=== PATIENT | male | born 1980 | race Caucasian/White ===

== ENCOUNTER 2020-04-28 17:43 | Emergency (ER) | payer MEDICAID, SELFPAY ==
[2020-04-28 17:44] VITALS: BP 147/94; PULSE 70; RESP 18; TEMP 36.2; O2SAT 97; BMI 42.4
--- NOTE | 2020-04-28 18:21 | US_ITS ---
STUDY: SCROTUM ULTRASOUND REASON FOR EXAM: Male, 39 years old. Left sided abdominal, groin and testicular pain beginning today. TECHNIQUE: Ultrasound evaluation of the scrotum was performed with color Doppler and static rios-scale imaging. COMPARISON: None. FINDINGS: RIGHT TESTICLE INTRATESTICULAR: There is mildly enlarged of the right testicle. The right testicle measures 5.2 x 2.9 x 2.2 cm. There is a homogenous echotexture. There is normal arterial and normal venous vascularity. There is no demonstrated right testicular mass or cyst. EXTRATESTICULAR: The epididymis is normal in size. The epididymis head measures 1.3 x 1.3 x 1.1 cm. There is normal vascularity of the epididymis. There is a 5 mm epididymal head cyst. There is a moderate size hydrocele. There is no demonstrated varicocele. There is no demonstrated extratesticular mass or cyst. LEFT TESTICLE INTRATESTICULAR: There is a normal size of the left testicle. The left testicle measures 4.4 x 3.2 x 1.9 cm. There is a homogenous echotexture. There is normal arterial and normal venous vascularity. There is no demonstrated left testicular mass or cyst. EXTRATESTICULAR: The epididymis is normal in size. The epididymis head measures 0.9 x 1.1 x 0.8 cm. There is normal vascularity of the epididymis. There is no demonstrated epididymal cystic structure. There is a moderate size hydrocele. There is no demonstrated varicocele. There is no demonstrated extratesticular mass or cyst. US/Testicular with Arterial Flow IMPRESSION: 1. Moderate bilateral hydroceles. 2. Right epididymal head cyst. 3. Mildly enlarged right testicle when compared to the left. It is otherwise unremarkable. Electronically Signed: Chris Michael DO at 19:34 EDT Tel [phone], Service support ,
--- NOTE | 2020-04-28 18:22 | ED.VIS.GEN ---
History of Present Illness Chief Complaint: Abd Pain Narrative: 39-year-old male presenting with abdominal pain. He states it was sharp and came out of nowhere. He describes it as in the left suprapubic area rating upward across his abdomen around his back and then down his leg. He states he did have nausea and vomiting x2. He still nauseous but no longer vomiting. He states he was diaphoretic a couple of times. He has a distant history of kidney stone. He does not have any urinary symptoms. Patient also states that he has not had any constipation or diarrhea. He has been eating and drinking normally. No history of diverticulitis that he can recall. Also complains of left testicular pain. This started with the other symptoms. He states it is not tender to palpation. Past Medical History - Allergies and Home Meds Allergies/Adverse Reactions: Allergies No Known Allergies Allergy (Verified 04/28/20 17:43) Primary Care Physician: Watson Simmons MD [STAFF PHYSICIAN] - [facility] Doctor,Out of [NON-STAFF] - Prior records reviewed: Yes Past Medical History: - - Kidney stones Surgical History: noncontributory Lives: Spouse/ Significant Other Smoking Status: Unknown if ever smoked Alcohol: None Drugs: None Review of Systems General: Reports: Sweats. Denies: Chills, Fever Eyes: Denies: Visual changes - bilaterally, Diplopia ENT: Denies: Rhinorrhea, Sore throat Cardiovascular: Denies: Chest pain, Palpitations Respiratory: Denies: Dyspnea, Cough, Dyspnea on exertion Gastrointestinal: Reports: Abdominal pain, Nausea, Vomiting, -. Denies: Diarrhea, Constipation, Hematochezia Genitourinary: Reports: - - Sensation of left testicular pain. Denies: Dysuria, Hematuria, Frequency Musculoskeletal: Denies: Myalgias, Arthralgias Skin: Denies: Rash, Abscess Physical Exam Vital Signs/Narrative: Vital Signs Temp Pulse Resp BP Pulse Ox 04/28/20 17:44 97.1 F L 70 18 147/94 H 97 General: Well nourished, Well developed, No Acute Distress Head: Normocephalic, Atraumatic Eyes: Perrl, EOMI. Negative for: Scleral icterus ENT: Moist mucous membranes Cardiovascular: Regular rate, Regular rhythm Respiratory: No distress, CTA bilaterally Abdomen: Soft, Nondistended, - - Tenderness to palpation noted in the left lower quadrant and left suprapubic region. : - - Testicles appear symmetric. Neither testicle appears high riding. There are no rashes or lesions. No blue dot sign. Cremasteric reflex intact. Back: Nontender. Negative for: CVA tenderness Extremities: Negative for: Nontender, No edema Skin: Normal color, No rash, Pallor Neurological: Oriented x3 Psychological: Normal affect Diagnostic/Tx/Re-eval - Medical Decision Making Presents with concern for pain to the left testicle as well as left-sided flank pain. On examination he has no CVA tenderness but does have some left lower abdominal pain. On examination he has no abnormal findings of his testicle. Testicular ultrasound shows bilateral hydroceles and a right-sided cyst on the testicle which is not even an area of tenderness. He had no pain on examination of his testicles. I did check a urinalysis which showed hematuria. Therefore I have ordered a CT noncontrast which showed a 2 mm distal ureteral stone which is consistent with the location of his pain. I believe the radiation of pain to the testicle is likely from the kidney stone. Blood work is unremarkable. Urinalysis shows no sign of infection. Patient was given morphine in the ED and felt improved. He will be given follow-up with urology. He was given Percocet, Zofran, Flomax for home. He is given return precautions. Patient is stable for discharge at this time. Impression: 1. 2 mm distal ureteral stone 2. Hematuria 3. Right testicular cyst 4. Bilateral hydroceles of the testicles ED Disposition - Plan for ED Patient: Disposition: Home or Assisted Living Instructions: ED Hydrocele Type Not Specified, ED Renal Stone w Colic Prescriptions: Tamsulosin HCl [Flomax] 0.4 mg PO DAILY #14 cap Prescription Printed Oxycodone HCl/Acetaminophen [Percocet 5/325] 1 tab PO Q6H PRN PRN 3 Days #12 tab PRN Reason: pain Prescription Printed Ondansetron [Zofran Odt] 4 mg PO Q8H PRN PRN #12 tab PRN Reason: Nausea Prescription Printed Referrals: [facility] Doctor,Out of [NON-STAFF] - Watson Simmons MD [STAFF PHYSICIAN] -
[2020-04-28 18:48] LABS: Bacteria 0 SEEN /hpf (None Seen); White Blood Cells 0 SEEN /hpf (0-5)
[2020-04-28 18:51] LABS: Color, Urine Yellow (Yellow); Glucose, Dipstick Normal (Normal); Ketone-Dipstick 5 mg/dl (Negative); Leukocyte Esterase-Dipstick 25 /ul (Negative); Nitrite-Dipstick Negative (Negative); Occult Blood-Urine 250 /ul (Negative); Protein-Dipstick 30 mg/dl (Negative); Urine Bilirubin Dipstick Negative (Negative); Urine Clarity Sl. Cloudy (Clear); Urine Urobilinogen Normal (Normal)
[2020-04-28] MEDS: 0.9% Normal Saline 1,000 ML 1000 ML IV (18:51)
[2020-04-28] MEDS: Ondansetron 4 MG/2 ML Vial IV (18:51)
[2020-04-28 18:52] LABS: Absolute Lymphocyte Count 1.38 X10^3/uL (0.83-4.51); Absolute Neutrophil Count 7.6 X10^3/uL (2.0-7.7); Basophil# 0.05 X10^3/uL; Basophil% 0.5 % (0-1); Eosinophil# 0.06 X10^3/uL; Eosinophils% 0.6 % (0-5); Hematocrit 44.4 % (40-54); Hemoglobin 15.2 g/dL (13.0-16.5); Lymphocyte # 1.38 X10^3/ul (4.0); Lymphocyte % 14.4 % (19-41); Mean Corp Hgb Conc 34.2 g/dL (32-36); Mean Corpuscular Hgb 31.2 pg (27.0-32.0); Mean Corpuscular Volume 91.2 fL (80-94); Mean Platelet Vol. 11.2 fl (6.2-12.0); Monocyte% 5.2 % (0-10); NRBC Flagged by Analyzer 0 % (0-5); Neutrophil # 7.55 X10^3/uL (2.7-7.7); Neutrophil % 78.9 % (47-70); Platelet Count 219 K/mm3 (150-450); RBC Distribution Width CV 13.1 % (11.6-14.6); RBC Distribution Width SD 43.7 fl (35.1-43.9); Red Blood Count 4.87 M/mm3 (4.6-6.2); White Blood Count 9.6 K/mm3 (4.4-11.0)
[2020-04-28 19:00] LABS: Mucous, Urine 2+ /hpf (<or=2+); Red Blood Cells-Urine 10-25 SEEN /hpf (0-5); Squamous Epithelial Cells - UA 0-5 SEEN /hpf (0-5)
--- NOTE | 2020-04-28 19:03 | CT_ITS ---
STUDY: CT ABDOMEN AND PELVIS WITHOUT CONTRAST REASON FOR EXAM: Male, 39 years old. Left-sided abdominal pain. Groin pain. RADIATION DOSAGE (If Supplied By Facility): CTDIvol = ( 15.32 ) mGy, DLP = ( 1420.57 ) mGycm TECHNIQUE: Transaxial images were obtained from the dome of the diaphragm to the symphysis pubis without oral contrast, and without intravenous contrast. Sagittal and coronal images were reconstructed. Individualized dose optimization techniques were used for this CT. COMPARISON: None. FINDINGS: The visualized lung bases are unremarkable. The visualized portions of the heart are within normal limits. Diffuse fatty infiltration of an enlarged liver. There is focal fatty sparing in the gallbladder fossa about the portal hilum. There is no focal mass. Normal gallbladder and extrahepatic biliary system. Splenomegaly without mass. Normal pancreas. Normal bilateral adrenal glands. The right kidney is of normal size and cortical thickness. There is a 2 mm nonobstructing calculus lower pole calyx. There is no mass or hydronephrosis. Normal right ureter. Normal left kidney. There is mild hydronephrosis and ureterectasis to the pelvis where there is a 2 mm calculus seen within the distal ureter (image 151, series 2. Normal visualized stomach. Normal small intestine. Normal colon. The appendix is visualized and appears normal. Normal abdominal aorta. Normal inferior vena cava. Normal retroperitoneum. Normal urinary bladder. Normal prostate. There is no pelvic lymphadenopathy or mass. No free air or free fluid is seen within the peritoneal cavity. Small umbilical hernia of omental fat. The abdominal wall is otherwise unremarkable. There are small bilateral hydroceles without other evidence of scrotal penile abnormality. Normal osseous structures. CT/Abdomen/Pelvis without Cont IMPRESSION: 1. 2 mm calculus in the distal left ureter with mild obstructive uropathy. 2. Nonobstructing right renal calculus. 3. Hepatosplenomegaly with diffuse fatty infiltration of the liver. 4. No other evidence of abdominal or pelvic abnormality. Electronically Signed: Chris Michael DO at 19:55 EDT Tel [phone], Service support ,
[2020-04-28 19:06] LABS: ALB/GLOB Ratio 1.5 RATIO (0.9-2.4); AST(SGOT) 37 U/L (15-37); Alanine Aminotransfer ALT/SGPT 94 U/L (16-61); Albumin, Serum 4.4 g/dL (3.2-5.0); Alkaline Phosphatase 69 U/L (45-117); Anion Gap 6 (5-15); BUN 12 mg/dL (7-18); BUN/Creat Ratio 11.8 RATIO (10-20); Chloride 108 mmol/L (98-107); Creatinine, Serum 1.02 mg/dL (0.70-1.30); EST Glomerular Filtration Rate 86 mL/min (>60); Est Glom Filt Rate - Afr Amer 104 mL/min (>60); Estimated Creatinine Clearance 103.56 ml/min; Glucose 124 mg/dL (74-106); Lipase 157 U/L (73-393); Potassium 3.7 mmol/L (3.5-5.1); Protein, Total 7.4 g/dL (6.4-8.2); Sodium Level 140 mmol/L (136-145)
[2020-04-28 21:29] VITALS: BP 132/89; PULSE 71; RESP 16
== END 2020-04-28 21:30 | disposition home or self-care (01) ==
PROVIDERS: Emergency Provider Student in an Organized Health Care Education/Training Program
DX: N20.1 Calculus of ureter (principal); R31.9 Hematuria, unspecified; N44.2 Benign cyst of testis; N43.3 Hydrocele, unspecified; Z87.442 Personal history of urinary calculi
CPT/HCPCS: 74176; 76870; 80053; 81001; 83690; 85025; 93976; 96361; 96374; 96375; 99282; J7030; A4216; J2405

== ENCOUNTER 2021-06-23 10:19 | Inpatient (IN) | payer MEDICAID, SELFPAY ==
[2021-06-23] VITALS (11 sets, daily range): BP systolic 119–134; BP diastolic 70–83; PULSE 85–121; RESP 16–27; TEMP 36.1–38.7; O2SAT 85–96; BMI 44.0; BMI 43.4
--- NOTE | 2021-06-23 10:54 | ED.VIS.DYS ---
HPI History of Present Illness Chief Complaint: Shortness of Breath Informant: patient Onset/Context/Timing Onset: Days Context: gradual Timing: Continuous Current Severity: Mild Maximum Severity: Mild Associated Symptoms cough Chest Pain: Positive for None Narrative Narrative: 40-year-old male unvaccinated for Covid. States has had Covid symptoms since Sunday so is now 6 days in. She has had flulike symptoms. He states he had nausea, vomiting and diarrhea. He has had fevers. He has had a dry nonproductive cough. Also states his 2-1/2-year-old daughters ill at home but she is doing quite well. He has no other past medical history. Says he feels dehydrated. PE Risk Factors: Negative for Cancer, OCP + Smoking + > 35, Prior DVT or PE, Recent immobilization, Recent surgery and Recent travel Prior similar symptoms: No Recent Illness/Hospitalization: No PFSH PFSH Medical History no medical history no medical history Home Medications dexamethasone [Decadron] 6 mg PO DAILY 7 Days #7 tab 06/23/21 [Rx Last Taken Unknown] ondansetron 4 mg PO Q8H PRN 4 Days tab 06/23/21 [Rx Last Taken Unknown] Allergy/AdvReac Type Severity Reaction Status Date / Time No Known Allergies Allergy Verified 04/28/20 17:43 Surgical History no surgical history Social History Smoking Status: Never smoker ROS ROS ED ROS Narrative Fever, cough, shortness of breath, nausea, vomiting and diarrhea. Review of Systems ROS Unobtainable: Denies due to encephalopathy Constitutional Constitutional ED: Reports fever(s) Eyes Eyes: Denies change in vision ENT ENT ED: Denies ear pain or sore throat Cardiovascular Cardiovascular: Denies chest pain Respiratory/Chest Respiratory/Chest: Reports cough and dyspnea Gastrointestinal Gastrointestinal: Reports diarrhea, nausea and vomiting; Denies abdominal pain Genitourinary Genitourinary ED: Denies dysuria Musculoskeletal Musculoskeletal: Reports myalgias Integumentary Denies rash Neurologic Neurologic: Denies headache(s) Psychiatric Psychiatric: Denies depression Endocrine Endocrinology: Denies polyuria Hematologic/Lymphatic Hematologic/Lymphatic: Denies easy bruising Allergic/Immunologic Allergic/Immunologic ED: Denies urticaria EXAM Physical Exam Narrative Exam Narrative: 40-year-old male no acute distress is febrile one 1.6. He does not look septic. He looks mildly dehydrated. HEENT exam mucous membranes. Otherwise unremarkable. Neck nontender no meningismus. No lymphadenopathy. Lungs clear to auscultation bilaterally. Heart tachycardic rate about 110 no murmur. Abdomen soft nontender normal bowel sounds no peritoneal signs. Moving all 4 extremities. No edema. Calves nontender. Back nontender. Skin unremarkable no rashes. No petechiae purpura. Neurologically is awake and alert. Const Vital Signs: 06/23/21 10:20 06/23/21 10:32 06/23/21 10:36 Temperature 101.6 F H 101.6 F H Temperature Source Oral Temporal Pulse Rate 121 H 105 H 102 H Respiratory Rate 24 H 22 H 24 H Respiratory Effort Non-Labored Respiratory Depth Normal Respiratory Pattern Tachypnea Blood Pressure 122/83 H 134/70 H 134/70 H Blood Pressure Mean 96 91 91 Pulse Ox 85 91 92 Oxygen Delivery Method Room Air Nasal Cannula Room Air Oxygen Flow Rate (L/min) 3 4 06/23/21 11:07 06/23/21 11:24 06/23/21 12:08 Temperature 97.0 F L Temperature Source Temporal Pulse Rate 100 Respiratory Rate 27 H Respiratory Effort Respiratory Depth Respiratory Pattern Blood Pressure 123/81 H Blood Pressure Mean 95 Pulse Ox 96 95 86 Oxygen Delivery Method Nasal Cannula Room Air Oxygen Flow Rate (L/min) 4 4 Positive well nourished, well developed and obese; Negative for cachectic, contractures or unkempt General Appearance ED: well developed and NAD; Negative for unkempt, cachectic, contractures or pallor Nutritional Appearance: obese; Negative for cachectic HEENT Reports dry mucous membranes atraumatic; Negative for trauma or tenderness Mouth ED: Yes dry mucous membranes Mouth: dry mucous membranes Eyes PERRL and EOMs intact bilaterally Neck no lymphadenopathy, supple, no meningeal signs and no JVD General: Negative for tenderness Resp normal respiratory effort and clear to auscultation bilaterally Auscultation: Negative for rales, rhonchi or wheezes Cardio regular rhythm, S1 normal heart sound, S2 normal heart sound and no murmurs Rate: tachycardic GI non-tender, non-distended and no masses Auscultation: normoactive bowel sounds Palpation: soft; Negative for tender, guarding or rebound tenderness present Back/Spine normal to inspection Extremity normal to inspection General Extremety ED: Negative for edema or tenderness General Extremity: Negative for edema Neuro oriented x3 Sensorium / Orientation: alert, oriented to person, oriented to place and oriented to time; Negative for confused, lethargic or stuporous Motor Exam: strength 5/5 throughout Psych mental status grossly normal Appearance: Negative for unkempt Skin no wounds General Skin Exam: Negative for jaundice or pallor Lesions: no lesions Rashes: no rashes MDM MDM MDM Narrative Medical decision making narrative: 40-year-old male Covid positive test on Sunday. Complaint nausea, vomiting diarrhea. Feels dehydrated. Will be given IV fluids. Chest x-ray and labs are being obtained. To be treated with IV Decadron. IV Zofran. Initially was considering discharging the patient home but he is significantly hypoxic with his pulse ox in the mid 80s. That would take him out from being a candidate for the monoclonal antibody therapy. I have spoken to the hospitalist and they will admit him. Lab Data Attestation: I reviewed the patient's lab results. Lab results narrative: CBC normal white count of 7. Hemoglobin 15. Electrolytes show sodium 135. Potassium 3.3. Gap of 6. Normal BUN and creatinine. Glucose 158. Labs: Laboratory Results - last 24 hr 06/23/21 06/23/21 11:10 11:10 WBC 7.8 RBC 4.99 Hgb 15.1 Hct 44.0 MCV 88.2 MCH 30.3 MCHC 34.3 RDW Std Deviation 43.2 RDW Coeff of [place] 13.2 Plt Count 216 MPV 9.7 Immature Gran % (Auto) 0.600 Neut % (Auto) 84.3 H Lymph % (Auto) 10.9 L [place] % (Auto) 4.1 Eos % (Auto) 0.0 Baso % (Auto) 0.1 Absolute Neuts (auto) 6.6 Absolute Lymphs (auto) 0.85 Nucleated RBC % 0 Sodium 135 L Potassium 3.3 L Chloride 102 Carbon Dioxide 27.0 Anion Gap 6 BUN 8 Creatinine 0.95 Estim Creat Clear Calc 106.73 Est GFR (MDRD) Af Amer 112 Est GFR (MDRD) Non-Af 93 BUN/Creatinine Ratio 8.4 L Glucose 158 H Calcium 8.3 L Radiography Chest X-Ray - ED: 1 View, Read by ED Physician, Heart, Mediastinum, Bony Structures, No Acute Disease, Right Infiltrate and Left Infiltrate Diagnostic Testing: Clinical Impression(s) from Imaging Studies Chest X-Ray 06/23/21 11:20 IMPRESSION: Patchy bilateral pulmonary infiltrates. Electronically Signed: Zachary Davison MD at 11:47 EDT , Service support , Single view portable chest x-ray interpreted by myself shows bilateral infiltrates consistent with Covid pneumonitis. Normal cardiac silhouette. Discharge Plan Triage Chief Complaint: Shortness of Breath ED Provider: Silverio Chery Dx/Rx/DC Orders Clinical Impression: COVID-19, Vomiting Instructions: ED Vomiting (Adult), Human Coronaviruses Prescriptions: New dexamethasone [Decadron] 6 mg tablet 6 mg PO DAILY 7 Days Qty: 7 RF: 0 ondansetron 4 mg tablet,disintegrating 4 mg PO Q8H PRN (Reason: nausea and vomiting) 4 Days RF: 0 Other Ambulatory Orders: COVID Outpatient Monoclonal Antibody Referral (Routine) Timeframe: 1 Day Facility: [facility] - Location: [facility] Ordered By: Dr. Silverio Chery Primary Care Provider: Reinier Mclean Referrals: Reinier Mclean MD [Primary Care Provider] - 1 Week if not improving Activity Restrictions/Additional Instructions: Plenty of fluids and rest. Zofran as needed for nausea. Decadron daily. Tylenol and Motrin as needed for fever. You need to quarantine for 10 days from the onset of your symptoms. If worse assuming that was Sunday your quarantine would be over next Sunday. Hospital will call you tomorrow to discuss monoclonal antibody therapy. You may want to strongly consider that. Basically you would come into the hospital you would be here 1 to 3 hours they would give you an IV infusion of the antibiotics to help you fight off the Covid. Disposition Disposition: Acute Care Hospital [facility]
[2021-06-23] MEDS: 0.9% Normal Saline 1,000 ML 1000 ML IV (11:14)
[2021-06-23 11:15] LABS: Absolute Lymphocyte Count 0.85 X10^3/uL (0.83-4.51); Absolute Neutrophil Count 6.6 X10^3/uL (2.0-7.7); Basophil# 0.01 X10^3/uL; Basophil% 0.1 % (0-1); Hemoglobin 15.1 g/dL (13.0-16.5); Lymphocyte # 0.85 X10^3/ul (0.83-4.51); Lymphocyte % 10.9 % (19-41); Mean Corp Hgb Conc 34.3 g/dL (32-36); Mean Corpuscular Hgb 30.3 pg (27.0-32.0); Mean Corpuscular Volume 88.2 fL (80-94); Mean Platelet Vol. 9.7 fl (6.2-12.0); Monocyte# 0.32 X10^3/uL; Monocyte% 4.1 % (0-10); NRBC Flagged by Analyzer 0 % (0-5); Neutrophil % 84.3 % (47-70); Platelet Count 216 K/mm3 (150-450); RBC Distribution Width CV 13.2 % (11.6-14.6); RBC Distribution Width SD 43.2 fl (35.1-43.9); Red Blood Count 4.99 M/mm3 (4.6-6.2); White Blood Count 7.8 K/mm3 (4.4-11.0)
[2021-06-23] MEDS: Ondansetron 4 MG/2 ML Vial IV (11:15)
[2021-06-23] MEDS: dexAMETHasone 10 MG/ML Vial IV (11:15)
--- NOTE | 2021-06-23 11:20 | RAD_ITS ---
STUDY: X-RAY CHEST REASON FOR EXAM: Male, 40 years old. Dyspnea TECHNIQUE: Single AP portable view of the chest. COMPARISON: None. FINDINGS: EKG electrodes are seen. There is elevation of the right hemidiaphragm. Patchy bilateral pulmonary infiltrates. There is no demonstrated pleural abnormality. Normal size heart. Normal mediastinum and jose manuel. Normal visualized pulmonary arteries. Normal visualized aortic arch and descending thoracic aorta. Normal visualized thoracic spine. Normal visualized ribs, clavicles, and shoulders. There is no demonstrated abnormality of the visualized soft tissue structures of the upper abdomen. RAD/Chest 1 View (Portable) IMPRESSION: Patchy bilateral pulmonary infiltrates. Electronically Signed: Zachary Davison MD at 11:47 EDT , Service support ,
[2021-06-23 11:27] LABS: Anion Gap 6 (5-15); BUN 8 mg/dL (7-18); BUN/Creat Ratio 8.4 RATIO (10-20); Calcium,Total 8.3 mg/dL (8.5-10.1); Chloride 102 mmol/L (98-107); Creatinine, Serum 0.95 mg/dL (0.70-1.30); EST Glomerular Filtration Rate 93 mL/min (>60); Est Glom Filt Rate - Afr Amer 112 mL/min (>60); Estimated Creatinine Clearance 106.73 ml/min; Glucose 158 mg/dL (74-106); Potassium 3.3 mmol/L (3.5-5.1); Sodium Level 135 mmol/L (136-145)
--- NOTE | 2021-06-23 12:56 | NURSING ---
322 TERELETSKY COVID, HYPOXIA, VOMITING
[2021-06-23 13:11] LABS: AST(SGOT) 89 U/L (15-37); Alanine Aminotransfer ALT/SGPT 91 U/L (16-61); Albumin, Serum 3.2 g/dL (3.2-5.0); Alkaline Phosphatase 61 U/L (45-117); Bilirubin, Direct 0.23 mg/dL (0.00-0.30); Globulin 4.4 g/dL (2.2-4.2); Protein, Total 7.6 g/dL (6.4-8.2)
--- NOTE | 2021-06-23 13:38 | PCM.HP.STD ---
Documented by User: MARCIANO Duncan 06/23/21 13:54 HPI - General General Date of Admission: 06/23/21 Date of Service: 06/23/21 Chief Complaint: Decreased pulse ox HPI Narrative MAHESH SMITH, is a 40 M who presents with reports of decreased pulse ox at home. Patient was diagnosed on Sunday as having COVID-19 however patient states that his symptoms started on Sunday which puts him 1 day 6 of symptoms. Patient reports nausea, vomiting, diarrhea along with fevers. Patient received IV Decadron and IV Zofran along with IV fluids in the ER. Upon presentation to ER patient was noted to have pulse ox in the mid 80s and is requiring 4 L nasal cannula oxygen. [facility] Medical History no medical history no medical history Home Medications dexamethasone [Decadron] 6 mg PO DAILY 7 Days #7 tab 06/23/21 [Rx Last Taken Unknown] ondansetron 4 mg PO Q8H PRN 4 Days tab 06/23/21 [Rx Last Taken Unknown] Allergy/AdvReac Type Severity Reaction Status Date / Time No Known Allergies Allergy Verified 04/28/20 17:43 Family History (Updated 06/23/21 @ 13:41 by MARCIANO Duncan) Father Myocardial infarction Surgical History History of tonsillectomy Surgical History no surgical history Social History (Updated 06/23/21 @ 13:41 by SAMEERA DuncanC) Smoking Status: Never smoker alcohol intake: never substance use type: does not use ROS Constitutional Constitutional: Reports fever(s) and malaise; Denies anorexia or chills Cardiovascular Cardiovascular: Denies chest pain, edema or palpitations Respiratory/Chest Respiratory/Chest: Reports cough and shortness of breath with exertion Gastrointestinal Gastrointestinal: Reports diarrhea, nausea and vomiting; Denies abdominal pain or constipation Genitourinary Genitourinary: Denies dysuria Musculoskeletal Musculoskeletal: Denies back pain, extremity pain, joint pain or joint stiffness Integumentary Integumentary: Denies dry skin, lesions or rash Neurologic Neurologic: Denies abnormal gait, abnormal speech, confusion, dizziness or focal weakness Psychiatric Psychiatric: Denies anxiety or depression Endocrine Endocrinology: Denies change in body appearance Hematologic/Lymphatic Hematologic/Lymphatic: Denies anemia, easy bleeding or easy bruising Vital Signs Vital Signs Vital Signs: 06/23/21 10:20 06/23/21 10:32 06/23/21 10:36 Temperature 101.6 F H 101.6 F H Temperature Source Oral Temporal Pulse Rate 121 H 105 H 102 H Respiratory Rate 24 H 22 H 24 H Respiratory Effort Non-Labored Respiratory Depth Normal Respiratory Pattern Tachypnea Blood Pressure 122/83 H 134/70 H 134/70 H Blood Pressure Mean 96 91 91 Pulse Ox 85 91 92 Oxygen Delivery Method Room Air Nasal Cannula Room Air Oxygen Flow Rate (L/min) 3 4 06/23/21 11:07 06/23/21 11:24 06/23/21 12:08 Temperature 97.0 F L Temperature Source Temporal Pulse Rate 100 Respiratory Rate 27 H Respiratory Effort Respiratory Depth Respiratory Pattern Blood Pressure 123/81 H Blood Pressure Mean 95 Pulse Ox 96 95 86 Oxygen Delivery Method Nasal Cannula Room Air Oxygen Flow Rate (L/min) 4 4 06/23/21 12:23 Temperature 97.3 F L Temperature Source Temporal Pulse Rate 98 Respiratory Rate 23 H Respiratory Effort Respiratory Depth Respiratory Pattern Blood Pressure 134/78 H Blood Pressure Mean 96 Pulse Ox 93 Oxygen Delivery Method Nasal Cannula Oxygen Flow Rate (L/min) 4 Weight Weight: 307 lb Body Mass Index (BMI) 44.0 Physical Exam Const alert, oriented x3 and no apparent distress General Appearance: cooperative HEENT normocephalic and head/scalp atraumatic Eyes conjunctivae normal and no scleral icterus Neck supple General: trachea midline Resp normal respiratory effort, normal air movement and clear to auscultation bilaterally Effort and Inspection: tachypneic Cardio regular rate, regular rhythm, S1 normal heart sound, S2 normal heart sound and peripheral pulses 2+ throughout GI normal to inspection, nondistended, normoactive bowel sounds, soft to palpation and non-tender Extremity normal capillary refill and no clubbing, cyanosis or edema General Extremity: no tenderness to palpation of joints or extremities Skin General Skin Exam: no breakdown and turgor normal Lesions: no lesions Rashes: no rashes Neuro no focal motor deficits and no sensory deficits noted Speech: speech normal Motor Exam: Negative for general weakness Psych thought process normal, cooperative and affect normal Appearance: appropriate Results Lab / Micro Data Result Diagrams: 06/23/21 11:10 06/23/21 11:10 Labs: Laboratory Results - last 24 hr 06/23/21 11:10: WBC 7.8, RBC 4.99, Hgb 15.1, Hct 44.0, MCV 88.2, MCH 30.3, MCHC 34.3, RDW Std Deviation 43.2, RDW Coeff of [place] 13.2, Plt Count 216, MPV 9.7, Immature Gran % (Auto) 0.600, Neut % (Auto) 84.3 H, Lymph % (Auto) 10.9 L, [place] % (Auto) 4.1, Eos % (Auto) 0.0, Baso % (Auto) 0.1, Absolute Neuts (auto) 6.6, Absolute Lymphs (auto) 0.85, Nucleated RBC % 0 06/23/21 11:10: Sodium 135 L, Potassium 3.3 L, Chloride 102, Carbon Dioxide 27.0, Anion Gap 6, BUN 8, Creatinine 0.95, Estim Creat Clear Calc 106.73, Est GFR (MDRD) Af Amer 112, Est GFR (MDRD) Non-Af 93, BUN/Creatinine Ratio 8.4 L, Glucose 158 H, Calcium 8.3 L 06/23/21 11:10: Total Bilirubin 0.50, Direct Bilirubin 0.23, AST 89 H, ALT 91 H, Alkaline Phosphatase 61, Total Protein 7.6, Albumin 3.2, Globulin 4.4 H Radiology Impression Chest X-Ray 06/23/21 11:20 IMPRESSION: Patchy bilateral pulmonary infiltrates. Electronically Signed: Zachary Davison MD at 11:47 EDT , Service support , Assessment & Plan Assessment/Plan (1) COVID-19: PLAN: 1. COVID-19 -Admit to MedSurg -Oxygen per protocol, currently on 4 L nasal cannula oxygen -Patient will be initiated on IV Decadron and remdesivir -Covid precautions -CBC and CMP daily -Vital signs per protocol -Regular diet -As needed IV Zofran ordered 2. Hypokalemia -Likely secondary to vomiting and diarrhea -Potassium chloride 40 mEq x 1 ordered p.o. -Daily CMP DVT prophylaxis-subcu Lovenox This patient was seen by Cathy Nair NP-C under the supervision of Dr. Vallejo. Documented by User: Dr. Ancelmo Vallejo, 06/23/21 18:52 HPI - General General Date of Admission: 06/23/21 PFSH Medical History no medical history Home Medications dexamethasone [Decadron] 6 mg PO DAILY 7 Days #7 tab 06/23/21 [Rx Last Taken Unknown] ondansetron 4 mg PO Q8H PRN 4 Days tab 06/23/21 [Rx Last Taken Unknown] Allergy/AdvReac Type Severity Reaction Status Date / Time No Known Allergies Allergy Verified 04/28/20 17:43 Family History (Updated 06/23/21 @ 13:41 by MARCIANO Duncan) Father Myocardial infarction Surgical History History of tonsillectomy Surgical History no surgical history Social History (Updated 06/23/21 @ 13:41 by Cathy Nair NP-C) Smoking Status: Never smoker alcohol intake: never substance use type: does not use Results Lab / Micro Data Result Diagrams: 06/23/21 11:10 06/23/21 11:10 Charges/Coding Addendum Addendum: Patient was seen and examined independently of Cathy Bautista today, he came to the emergency room today complaining of worsening shortness of breath, patient has been feeling ill since last Sunday (6 days) and he states he tested positive for COVID-19 this past Sunday. Evaluation in the ER noted that the patient required 4 L of oxygen to maintain his pulse ox. On examination he appeared his stated age, patient was morbidly obese. Vital signs as documented. Skin warm and dry and without overt rashes. Neck without JVD, neck was supple, trachea midline, thyroid was normal. Lungs clear bilaterally, normal air movement was noted. Heart exam notable for regular rhythm, normal sounds and absence of murmurs, rubs or gallops. Abdomen unremarkable and without evidence of organomegaly, masses, or abdominal aortic enlargement. Bowel sounds are present, abdomen is not distended. Extremities nonedematous, no cyanosis was noted, no clubbing was noted. Neuro: Cranial nerves II through XII are grossly intact, no focal motor deficits were noted, sensation to light touch and pinprick intact, motor exam 5/5 throughout. Psych: Patient is alert and oriented x3, he does not appear anxious or depressed, he does not appear agitated. Patient will be admitted to [facility], he will receive IV remdesivir and IV dexamethasone. I have reviewed Aric Bautista's history and physical including her medical assessment and plan of care and endorse it. Visit Charges Inpatient E&M: 03063 Init Hosp L3
--- NOTE | 2021-06-23 13:42 | PCS.PANDOC ---
PANDEMIC DOCUMENTATION INITIATED: Date: 04/25/2021 Time: 190
[2021-06-23] MEDS: Potassium Chloride Oral Tablet 20 MEQ 40 MEQ PO (15:16)
[2021-06-23] MEDS: 0.9% Saline Lock 10 ML Syringe IV (15:17)
[2021-06-23] MEDS: Enoxaparin 40 MG/0.4 ML Syringe SC (21:38)
[2021-06-23] MEDS: Acetaminophen 325 MG Tablet 650 MG PO (21:38)
[2021-06-24] VITALS (9 sets, daily range): BP systolic 102–135; BP diastolic 67–75; PULSE 75–86; RESP 16–20; TEMP 36.9–37.2; O2SAT 88–98
[2021-06-24 07:13] LABS: Hematocrit 45.2 % (40-54); Hemoglobin 15.3 g/dL (13.0-16.5); Mean Corp Hgb Conc 33.8 g/dL (32-36); Mean Corpuscular Hgb 30.8 pg (27.0-32.0); Mean Corpuscular Volume 91.1 fL (80-94); Mean Platelet Vol. 10.3 fl (6.2-12.0); Platelet Count 278 K/mm3 (150-450); RBC Distribution Width CV 13.4 % (11.6-14.6); Red Blood Count 4.96 M/mm3 (4.6-6.2); White Blood Count 8.9 K/mm3 (4.4-11.0)
[2021-06-24 07:43] LABS: ALB/GLOB Ratio 0.7 RATIO (0.9-2.4); AST(SGOT) 67 U/L (15-37); Alanine Aminotransfer ALT/SGPT 84 U/L (16-61); Alkaline Phosphatase 58 U/L (45-117); Anion Gap 7 (5-15); BUN 10 mg/dL (7-18); BUN/Creat Ratio 12.6 RATIO (10-20); Calcium,Total 8.5 mg/dL (8.5-10.1); Chloride 107 mmol/L (98-107); Creatinine, Serum 0.79 mg/dL (0.70-1.30); EST Glomerular Filtration Rate 115 mL/min (>60); Est Glom Filt Rate - Afr Amer 139 mL/min (>60); Estimated Creatinine Clearance 128.34 ml/min; Globulin 4.4 g/dL (2.2-4.2); Glucose 138 mg/dL (74-106); Protein, Total 7.4 g/dL (6.4-8.2); Sodium Level 141 mmol/L (136-145)
[2021-06-24] MEDS: 0.9% Saline Lock 10 ML Syringe IV (09:53)
[2021-06-24] MEDS: Enoxaparin 40 MG/0.4 ML Syringe SC ×2 (09:54→22:33)
[2021-06-24] MEDS: dexAMETHasone 4 MG/ML Vial 6 MG IV (09:55)
--- NOTE | 2021-06-24 12:36 | PN.HOSP_ITS ---
Documented by User: Cathy Nair NP-C 06/24/21 12:43 Subjective Subjective Patient seen and examined. Patient states that he is not feeling too bad, does report shortness of breath. Patient currently on 6 L nasal cannula oxygen up from 4 L yesterday, pulse ox stable when stationary however when patient is ambulatory pulse ox rapidly decreases into the low 80s. Patient denies needs at this time Objective Data Objective Data Vital Signs: Vital Signs Temp Pulse Resp BP Pulse Ox 98.4 F 82 16 135/75 H 92 06/24/21 11:49 06/24/21 11:49 06/24/21 11:49 06/24/21 11:49 06/24/21 11:49 Oxygen Flow Rate (L/min) 9 Oxygen Delivery Method Nasal Cannula Weight: 302 lb 15.983 oz Body Mass Index (BMI) 43.4 Intake & Output: Intake and Output for Last 24 Hours 06/22/21 06/23/21 06/24/21 23:59 23:59 23:59 Intake Total 1562.00 / 1562.00 250 / 250 Balance 1562.00 / 1562.00 250 / 250 Medical Nutrition Assessment Dietitian: Malnutrition Criteria Met Start: 06/23/21 15:02 Freq: Status: Active Protocol: Document 06/23/21 15:02 (Rec: 06/23/21 15:02 [id number]) Nutrition Malnutrition Evidence of Malnutrition Exists Yes Malnutrition (severe): Acute Illness/Injury Evidenced By Suboptimal Energy Intake ( Severe),Weight Loss (Severe) Clinical Problem Acute Disease or Injury Related Malnutrition Etiology severe, acute malnutrition r/t inadequate energy intake d/t COVID-19 Signs/Symptoms as evidenced by unintentional wt loss of 17#/5.3% x 6 days, estimated PO intake meeting < 50% of estimated nutritional needs >5 days Status Active Problem Recommendation Dietitian Recommendations/Changes continue regular diet; will add [place] Instant Breakfast w/ breakfast for additional calories/protein if consumed. Lab / Micro Data Result Diagrams: 06/24/21 06:45 06/24/21 06:45 Labs: Laboratory Results - last 24 hr 06/23/21 11:10: Total Bilirubin 0.50, Direct Bilirubin 0.23, AST 89 H, ALT 91 H, Alkaline Phosphatase 61, Total Protein 7.6, Albumin 3.2, Globulin 4.4 H 06/24/21 06:45: WBC 8.9, RBC 4.96, Hgb 15.3, Hct 45.2, MCV 91.1, MCH 30.8, MCHC 33.8, RDW Std Deviation 45.0 H, RDW Coeff of [place] 13.4, Plt Count 278, MPV 10.3 06/24/21 06:45: Sodium 141, Potassium 4.0, Chloride 107, Carbon Dioxide 27.0, Anion Gap 7, BUN 10, Creatinine 0.79, Estim Creat Clear Calc 128.34, Est GFR (MDRD) Af Amer 139, Est GFR (MDRD) Non-Af 115, BUN/Creatinine Ratio 12.6, Glucose 138 H, Calcium 8.5, Total Bilirubin 0.40, AST 67 H, ALT 84 H, Alkaline Phosphatase 58, Total Protein 7.4, Albumin 3.0 L, Globulin 4.4 H, Albumin/Globulin Ratio 0.7 L Physical Exam Const alert, oriented x3 and no apparent distress General Appearance: cooperative HEENT normocephalic and head/scalp atraumatic Eyes conjunctivae normal and no scleral icterus Neck supple General: trachea midline Resp normal respiratory effort, normal air movement and clear to auscultation bilater ally Effort and Inspection: tachypneic Cardio regular rate, regular rhythm, S1 normal heart sound, S2 normal heart sound and peripheral pulses 2+ throughout GI normal to inspection, nondistended, normoactive bowel sounds, soft to palpation and non-tender Extremity normal capillary refill and no clubbing, cyanosis or edema General Extremity: no tenderness to palpation of joints or extremities Skin General Skin Exam: no breakdown and turgor normal Lesions: no lesions Rashes: no rashes Neuro no focal motor deficits and no sensory deficits noted Speech: speech normal Motor Exam: Negative for general weakness Psych thought process normal, cooperative and affect normal Appearance: appropriate Assessment & Plan Assessment/Plan (1) COVID-19: PLAN: 1. COVID-19 -Admit to MedSurg -Oxygen per protocol, currently on 6 L nasal cannula oxygen -Continue IV Decadron and remdesivir -Covid precautions -CBC and CMP daily -Vital signs per protocol -Regular diet -As needed IV Zofran ordered -Encouraged patient to prone as much as possible as well as use incentive spirometry. -Nursing reports patient is very compliant with all recommendations to promote healing. 2. Hypokalemia -Resolved, potassium 4.0 today 3. Morbid obesity, BMI 40.0-44.9 -Encourage lifestyle modifications -Patient reports a unexpected 17 pound weight loss due to decreased intake from Covid DVT prophylaxis-subcu Lovenox This patient was seen by MARCIANO Duncan under the supervision of Dr. Vallejo. Documented by User: Dr. Ancelmo Vallejo DO 06/24/21 19:28 Objective Data Lab / Micro Data Result Diagrams: 06/24/21 06:45 06/24/21 06:45 Charges/Coding Addendum Addendum: Patient was seen and examined independently of Cathy Bautista today, patient is currently on 9 L of oxygen via nasal cannula, he does not complain of any shortness of breath or chest discomfort. He does not complain of any fevers or chills. On examination he appeared in good health and spirits. Vital signs as documented. Skin warm and dry and without overt rashes. Neck without JVD, neck was supple, trachea midline, thyroid was normal. Lungs clear bilaterally, normal air movement was noted. Heart exam notable for regular rhythm, normal sounds and absence of murmurs, rubs or gallops. Abdomen unremarkable and without evidence of organomegaly, masses, or abdominal aortic enlargement. Bowel sounds are present, abdomen is not distended. Extremities nonedematous, no cyanosis was noted, no clubbing was noted. Neuro: Cranial nerves II through XII are grossly intact, no focal motor deficits were noted, sensation to light touch and pinprick intact, motor exam 5/5 throughout. Psych: Patient is alert and oriented x3, he does not appear anxious or depressed, he does not appear agitated. I have reviewed Aric Bautista's progress note including her medical assessment and plan of care and endorse it. Visit Charges Inpatient E&M: 51146 Subs Hosp L2
--- NOTE | 2021-06-24 13:25 | CASEMGMT ---
ADELITA LAZARO Assessment: Face to Face with pt for initial transition planning/care coordination assessment. ADELITA LAZARO introduced self and role at [facility], pt voices understanding and consents to assessment. Pt is A/O x4 and answers all questions appropriately at this time. Pt lying in bed with O2 on in no distress. Care providers, pharmacy, and demographics verified/updated. Admitting Dx: COVID, hypoxia, vomiting PCP:[facility] Specialists: Pt denies. [facility]erred [facility]: [facility] Insurance: [facility] Prescription Benefit: yes LW/HPOA: Pt denies having a LW/DPOA and denies need for info regarding AD. LNOK: Marya Barbosa, sig other Living Arrangements: Pt lives with sig other and daughter in a split level house with no steps to enter. Pt reports being I in ADL's and denies concerns at home. Transportation: Pt drives self and denies concerns with transportation. DME/HHC/SNF: Pt denies having any DME in the home, hx of HHC or SNF stays. Pt was first tested at [facility] in [place]. Pt emailed this RN CM his result. Pt states his dtr is also positive but his sig other is not. They are not able to quarantine from each other. Pt states they already use a grocery delivery service. Discussed with patient local in network DME companies should he need O2 on dc, pt chose [employer]. Pt states no concerns with going home at time of dc. Pt states no further concerns/needs. CM to follow. Advised pt to ask CM if any further question/concerns/needs arise, voices understanding. Pt Goal: Home Plan: Home, follow for O2.
[2021-06-24] MEDS: Temazepam 15 MG Capsule PO (22:34)
[2021-06-24] MEDS: Acetaminophen 325 MG Tablet 650 MG PO (22:34)
[2021-06-25] VITALS (12 sets, daily range): BP systolic 111–131; BP diastolic 63–71; PULSE 65–94; RESP 20; TEMP 36.6–37; O2SAT 82–97
[2021-06-25 07:51] LABS: Absolute Lymphocyte Count 1.56 X10^3/uL (0.83-4.51); Basophil# 0.03 X10^3/uL; Basophil% 0.3 % (0-1); Hematocrit 48.2 % (40-54); Hemoglobin 15.6 g/dL (13.0-16.5); Lymphocyte # 1.56 X10^3/ul (0.83-4.51); Lymphocyte % 14.9 % (19-41); Mean Corp Hgb Conc 32.4 g/dL (32-36); Mean Corpuscular Hgb 30.1 pg (27.0-32.0); Mean Corpuscular Volume 93.1 fL (80-94); Mean Platelet Vol. 10.3 fl (6.2-12.0); Monocyte# 0.61 X10^3/uL; Monocyte% 5.8 % (0-10); NRBC Flagged by Analyzer 0 % (0-5); Neutrophil # 8.03 X10^3/uL (2.7-7.7); Neutrophil % 76.9 % (47-70); Platelet Count 355 K/mm3 (150-450); RBC Distribution Width CV 13.2 % (11.6-14.6); RBC Distribution Width SD 45.4 fl (35.1-43.9); Red Blood Count 5.18 M/mm3 (4.6-6.2); White Blood Count 10.5 K/mm3 (4.4-11.0)
[2021-06-25 08:24] LABS: ALB/GLOB Ratio 0.6 RATIO (0.9-2.4); AST(SGOT) 53 U/L (15-37); Alanine Aminotransfer ALT/SGPT 84 U/L (16-61); Albumin, Serum 2.9 g/dL (3.2-5.0); Alkaline Phosphatase 61 U/L (45-117); Anion Gap 8 (5-15); BUN 12 mg/dL (7-18); BUN/Creat Ratio 15.3 RATIO (10-20); Calcium,Total 8.7 mg/dL (8.5-10.1); Chloride 104 mmol/L (98-107); Creatinine, Serum 0.78 mg/dL (0.70-1.30); EST Glomerular Filtration Rate 116 mL/min (>60); Est Glom Filt Rate - Afr Amer 140 mL/min (>60); Estimated Creatinine Clearance 129.99 ml/min; Globulin 4.5 g/dL (2.2-4.2); Glucose 127 mg/dL (74-106); Potassium 3.9 mmol/L (3.5-5.1); Protein, Total 7.4 g/dL (6.4-8.2); Sodium Level 141 mmol/L (136-145)
--- NOTE | 2021-06-25 10:04 | PCM.PN.HOSP ---
Documented by User: Cathy Nair NP-C 06/25/21 10:09 Subjective Subjective Seen and examined. Patient states that he is still feeling okay other than being hypoxic. Patient states that he proned all night last night and has been using his incentive spirometry while he has been awake. Patient currently on 9 L nasal cannula oxygen up from 6 yesterday. Patient denies complaints at this time. Objective Data Objective Data Vital Signs: Vital Signs Temp Pulse Resp BP Pulse Ox 97.8 F 72 20 H 131/71 H 96 06/25/21 05:18 06/25/21 05:18 06/25/21 05:18 06/25/21 05:18 06/25/21 05:18 Oxygen Flow Rate (L/min) 9 Oxygen Delivery Method Nasal Cannula Weight: 302 lb 15.983 oz Body Mass Index (BMI) 43.4 Intake & Output: Intake and Output for Last 24 Hours 06/23/21 06/24/21 06/25/21 23:59 23:59 23:59 Intake Total 1562.00 / 1562.00 280.25 / 280.25 Balance 1562.00 / 1562.00 280.25 / 280.25 Medical Nutrition Assessment Dietitian: Malnutrition Criteria Met Start: 06/23/21 15:02 Freq: Status: Active Protocol: Document 06/23/21 15:02 (Rec: 06/23/21 15:02 [id number]) Nutrition Malnutrition Evidence of Malnutrition Exists Yes Malnutrition (severe): Acute Illness/Injury Evidenced By Suboptimal Energy Intake ( Severe),Weight Loss (Severe) Clinical Problem Acute Disease or Injury Related Malnutrition Etiology severe, acute malnutrition r/t inadequate energy intake d/t COVID-19 Signs/Symptoms as evidenced by unintentional wt loss of 17#/5.3% x 6 days, estimated PO intake meeting < 50% of estimated nutritional needs >5 days Status Active Problem Recommendation Dietitian Recommendations/Changes continue regular diet; will add [place] Instant Breakfast w/ breakfast for additional calories/protein if consumed. Lab / Micro Data Result Diagrams: 06/25/21 06:25 06/25/21 06:25 Labs: Laboratory Results - last 24 hr 06/25/21 06:25: WBC 10.5, RBC 5.18, Hgb 15.6, Hct 48.2, MCV 93.1, MCH 30.1, MCHC 32.4, RDW Std Deviation 45.4 H, RDW Coeff of [place] 13.2, Plt Count 355, MPV 10.3, Immature Gran % (Auto) 2.100 H, Neut % (Auto) 76.9 H, Lymph % (Auto) 14.9 L, [place] % (Auto) 5.8, Eos % (Auto) 0.0, Baso % (Auto) 0.3, Absolute Neuts (auto) 8.0 H, Absolute Lymphs (auto) 1.56, Nucleated RBC % 0 06/25/21 06:25: Sodium 141, Potassium 3.9, Chloride 104, Carbon Dioxide 29.0, Anion Gap 8, BUN 12, Creatinine 0.78, Estim Creat Clear Calc 129.99, Est GFR (MDRD) Af Amer 140, Est GFR (MDRD) Non-Af 116, BUN/Creatinine Ratio 15.3, Glucose 127 H, Calcium 8.7, Total Bilirubin 0.40, AST 53 H, ALT 84 H, Alkaline Phosphatase 61, Total Protein 7.4, Albumin 2.9 L, Globulin 4.5 H, Albumin/Globulin Ratio 0.6 L Physical Exam Const alert, oriented x3 and no apparent distress General Appearance: cooperative HEENT normocephalic and head/scalp atraumatic Head and Scalp: normocephalic Eyes conjunctivae normal and no scleral icterus Neck full ROM and supple General: trachea midline Resp normal respiratory effort, normal air movement and clear to auscultation bilaterally Effort and Inspection: tachypneic Cardio regular rate, regular rhythm, S1 normal heart sound, S2 normal heart sound and peripheral pulses 2+ throughout GI normal to inspection, nondistended, normoactive bowel sounds, soft to palpation and non-tender Extremity normal to inspection, full ROM, normal capillary refill and no clubbing, cyanosis or edema General Extremity: no tenderness to palpation of joints or extremities Peripheral Pulses: Yes pulses 2+ throughout Skin no rashes or lesions noted and no wounds General Skin Exam: no breakdown and turgor normal Lesions: no lesions Rashes: no rashes Neuro oriented x3, moves all extremities, no focal motor deficits and no sensory deficits noted Sensorium / Orientation: awake and alert Speech: speech normal Motor Exam: Negative for general weakness Psych thought process normal, cooperative and affect normal Appearance: appropriate Assessment & Plan Assessment/Plan (1) COVID-19: PLAN: 1. COVID-19 -Admit to MedSurg -Oxygen per protocol, currently on 9 L nasal cannula oxygen -Continue IV Decadron and remdesivir -Covid precautions -CBC and CMP daily -Vital signs per protocol -Regular diet -As needed IV Zofran ordered -Encouraged patient to prone as much as possible as well as use incentive spirometry. -Nursing reports patient is very compliant with all recommendations to promote healing. 2. Hypokalemia-Resolved 3. Morbid obesity, BMI 40.0-44.9 -Encourage lifestyle modifications -Patient reports a unexpected 17 pound weight loss due to decreased intake from Covid DVT prophylaxis-subcu Lovenox This patient was seen by Cathy Nair NP-C under the supervision of Dr. Vallejo. Documented by User: Dr. Ancelmo Vallejo, 06/25/21 18:05 Objective Data Lab / Micro Data Result Diagrams: 06/25/21 06:25 06/25/21 06:25 Charges/Coding Addendum Addendum: Patient was seen and examined today independently of Cathy Bautista, he is requiring 8 L via nasal cannula at the time of this dictation. Patient does not complain of any shortness of breath at rest, he denies any fever or chills. On examination he appeared in good health and spirits, patient is morbidly obese. Vital signs as documented. Skin warm and dry and without overt rashes. Neck without JVD, neck was supple, trachea midline, thyroid was normal. Lungs clear bilaterally, normal air movement was noted. Heart exam notable for regular rhythm, normal sounds and absence of murmurs, rubs or gallops. Abdomen unremarkable and without evidence of organomegaly, masses, or abdominal aortic enlargement. Bowel sounds are present, abdomen is not distended. Extremities nonedematous, no cyanosis was noted, no clubbing was noted. Neuro: Cranial nerves II through XII are grossly intact, no focal motor deficits were noted, sensation to light touch and pinprick intact, motor exam 5/5 throughout. Psych: Patient is alert and oriented x3, he does not appear anxious or depressed, he does not appear agitated. Continue present treatment, I have reviewed Aric Bautista's progress note including her medical assessment and plan of care and endorse it. Visit Charges Inpatient E&M: 44296 Subs Hosp L2
[2021-06-25] MEDS: Enoxaparin 40 MG/0.4 ML Syringe SC ×2 (10:16→20:28)
[2021-06-25] MEDS: dexAMETHasone 4 MG/ML Vial 6 MG IV (10:16)
[2021-06-25] MEDS: 0.9% Saline Lock 10 ML Syringe IV ×2 (10:16→20:26)
[2021-06-26] VITALS (15 sets, daily range): BP systolic 102–116; BP diastolic 57–75; PULSE 65–91; RESP 18–22; TEMP 36.8–37.1; O2SAT 72–97
[2021-06-26 07:07] LABS: Hematocrit 47.1 % (40-54); Hemoglobin 15.6 g/dL (13.0-16.5); Mean Corp Hgb Conc 33.1 g/dL (32-36); Mean Corpuscular Hgb 30.6 pg (27.0-32.0); Mean Corpuscular Volume 92.4 fL (80-94); Mean Platelet Vol. 10.4 fl (6.2-12.0); POSITIVE COUNT YES; POSITIVE MORPHOLOGY YES; Platelet Count 389 K/mm3 (150-450); RBC Distribution Width SD 44.3 fl (35.1-43.9); White Blood Count 9.9 K/mm3 (4.4-11.0)
[2021-06-26 07:13] LABS: Differential Indicated MANUAL DIFF
[2021-06-26 07:40] LABS: Lymphocyte 15 % (19-41); Monocyte 7 % (0-10); Neutrophil-Band 2 % (0-5); Neutrophil-Segmented 76 % (47-70); Total Cells Counted 100 (MANUAL DIFF)
[2021-06-26 07:41] LABS: Neutrophil # 7.73 X10^3/uL (2.7-7.7); Platelet Estimate ADEQUATE (ADEQ); Red Cell Morphology NORM C+C NORMAL (NORM C&C)
[2021-06-26 07:42] LABS: Absolute Lymphocyte Count 1.48 X10^3/uL (0.83-4.51); Absolute Neutrophil Count 7.7 X10^3/uL (2.0-7.7); Lymphocyte # 1.48 X10^3/ul (0.83-4.51)
[2021-06-26 07:52] LABS: ALB/GLOB Ratio 0.6 RATIO (0.9-2.4); AST(SGOT) 39 U/L (15-37); Alanine Aminotransfer ALT/SGPT 75 U/L (16-61); Albumin, Serum 2.7 g/dL (3.2-5.0); Alkaline Phosphatase 58 U/L (45-117); Anion Gap 6 (5-15); BUN 13 mg/dL (7-18); BUN/Creat Ratio 16.5 RATIO (10-20); Calcium,Total 8.9 mg/dL (8.5-10.1); Chloride 104 mmol/L (98-107); Creatinine, Serum 0.79 mg/dL (0.70-1.30); EST Glomerular Filtration Rate 115 mL/min (>60); Est Glom Filt Rate - Afr Amer 139 mL/min (>60); Estimated Creatinine Clearance 128.34 ml/min; Globulin 4.2 g/dL (2.2-4.2); Glucose 137 mg/dL (74-106); Potassium 4.1 mmol/L (3.5-5.1); Protein, Total 6.9 g/dL (6.4-8.2); Sodium Level 141 mmol/L (136-145)
--- NOTE | 2021-06-26 10:02 | PN.HOSP_ITS ---
Documented by User: Cathy Nair SAFETY SUPERVISOR-C 06/26/21 10:11 Subjective Subjective Patient seen and examined. Patient states that he continues to feel okay other than increased need for oxygen. Patiently currently on 13 L nasal cannula oxygen. Patient reports that he found overnight and has been using his inc entive spirometry this morning. Objective Data Objective Data Vital Signs: Vital Signs Temp Pulse Resp BP Pulse Ox 98.7 F 65 18 106/58 L 92 06/26/21 04:45 06/26/21 04:45 06/26/21 04:45 06/26/21 04:45 06/26/21 04:46 Oxygen Flow Rate (L/min) 13 Oxygen Delivery Method Nasal Cannula Weight: 302 lb 15.983 oz Body Mass Index (BMI) 43.4 Intake & Output: Intake and Output for Last 24 Hours 06/24/21 06/25/21 06/26/21 23:59 23:59 23:59 Intake Total 280.25 / 280.25 650 / 650 Balance 280.25 / 280.25 650 / 650 Medical Nutrition Assessment Dietitian: Malnutrition Criteria Met Start: 06/23/21 15:02 Freq: Status: Active Protocol: Document 06/23/21 15:02 AG (Rec: 06/23/21 15:02 [id number]) Nutrition Malnutrition Evidence of Malnutrition Exists Yes Malnutrition (severe): Acute Illness/Injury Evidenced By Suboptimal Energy Intake ( Severe),Weight Loss (Severe) Clinical Problem Acute Disease or Injury Related Malnutrition Etiology severe, acute malnutrition r/t inadequate energy intake d/t COVID-19 Signs/Symptoms as evidenced by unintentional wt loss of 17#/5.3% x 6 days, estimated PO intake meeting < 50% of estimated nutritional needs >5 days Status Active Problem Recommendation Dietitian Recommendations/Changes continue regular diet; will add [place] Instant Breakfast w/ breakfast for additional calories/protein if consumed. Lab / Micro Data Result Diagrams: 06/26/21 06:20 06/26/21 06:20 Labs: Laboratory Results - last 24 hr 06/26/21 06:20: WBC 9.9, RBC 5.10, Hgb 15.6, Hct 47.1, MCV 92.4, MCH 30.6, MCHC 33.1, RDW Std Deviation 44.3 H, RDW Coeff of [place] 13.0, Plt Count 389, MPV 10.4, Neut % (Auto) Not Reportable, Absolute Neuts (auto) 7.7, Absolute Lymphs (auto) 1.48, Total Counted 100, Neutrophils % (Manual) 76 H, Band Neutrophils % 2, Lymphocytes % (Manual) 15 L, Monocytes % (Manual) 7, Platelet Estimate ADEQUATE, RBC Morphology NORM C+C 06/26/21 06:20: Sodium 141, Potassium 4.1, Chloride 104, Carbon Dioxide 31.0, Anion Gap 6, BUN 13, Creatinine 0.79, Estim Creat Clear Calc 128.34, Est GFR (MDRD) Af Amer 139, Est GFR (MDRD) Non-Af 115, BUN/Creatinine Ratio 16.5, Glucose 137 H, Calcium 8.9, Total Bilirubin 0.40, AST 39 H, ALT 75 H, Alkaline Phosphatase 58, Total Protein 6.9, Albumin 2.7 L, Globulin 4.2, Albumin/Globulin Ratio 0.6 L Physical Exam Const alert, oriented x3 and no apparent distress General Appearance: cooperative HEENT normocephalic and head/scalp atraumatic Eyes conjunctivae normal and no scleral icterus Neck full ROM and supple General: trachea midline Resp normal respiratory effort, normal air movement and clear to auscultation bilaterally Effort and Inspection: tachypneic Cardio regular rate, regular rhythm, S1 normal heart sound, S2 normal heart sound and peripheral pulses 2+ throughout GI normal to inspection, nondistended, normoactive bowel sounds, soft to palpation and non-tender Extremity normal to inspection, full ROM, normal capillary refill and no clubbing, cyanosis or edema General Extremity: no tenderness to palpation of joints or extremities Skin no rashes or lesions noted and no wounds General Skin Exam: no breakdown and turgor normal Lesions: no lesions Rashes: no rashes Neuro oriented x3, moves all extremities, no focal motor deficits and no sensory deficits noted Sensorium / Orientation: awake and alert Speech: speech normal Motor Exam: Negative for general weakness Psych thought process normal, cooperative and affect normal Appearance: appropriate Assessment & Plan Assessment/Plan (1) COVID-19: PLAN: 1. COVID-19 -Oxygen per protocol, currently on 13L nasal cannula oxygen -Continue IV Decadron and remdesivir -Covid precautions -CBC and CMP daily -Vital signs per protocol -Regular diet -As needed IV Zofran ordered -Encouraged patient to prone as much as possible as well as use incentive spirometry. -Nursing reports patient is very compliant with all recommendations to promote healing. 2. Morbid obesity, BMI 40.0-44.9 -Encourage lifestyle modifications -Patient reports a unexpected 17 pound weight loss due to decreased intake from Covid 3. Severe acute malnutrition -Patient has had decreased intake for the past week due to Covid -Nutrition following, [place] Instant Breakfast ordered per nutrition. DVT prophylaxis-subcu Lovenox This patient was seen by Cathy Nair NP-C under the supervision of Dr. Vallejo. Documented by User: Dr. Ancelmo Vallejo, 06/26/21 15:41 Objective Data Lab / Micro Data Result Diagrams: 06/26/21 06:20 06/26/21 06:20 Charges/Coding Addendum Addendum: Patient was seen and examined today independently of Kristine Nair, he is currently on 15 L via nasal cannula, patient remains on remdesivir and dexamethasone. Patient does not complain of any shortness of breath at rest. On examination he appeared his stated age, patient is morbidly obese. Vital signs as documented. Skin warm and dry and without overt rashes. Neck without JVD, neck was supple, trachea midline, thyroid was normal. Lungs clear bilaterally, normal air movement was noted. Heart exam notable for regular rhythm, normal sounds and absence of murmurs, rubs or gallops. Abdomen unremarkable and without evidence of organomegaly, masses, or abdominal aortic enlargement. Bowel sounds are present, abdomen is not distended. Extremities nonedematous, no cyanosis was noted, no clubbing was noted. Neuro: Cranial nerves II through XII are grossly intact, no focal motor deficits were noted, sensation to light touch and pinprick intact, motor exam 5/5 throughout. Psych: Patient is alert and oriented x3, he does not appear anxious or depressed, he does not appear agitated. If if the patient's supplemental oxygen requirement rises, he might be a candidate for baricitinib at which time we would get infectious diseases involved. I have reviewed Kristine Nair's progress note including her medical assessment and plan of care and endorse it. Visit Charges Inpatient E&M: 72912 Subs Hosp L2
[2021-06-26] MEDS: dexAMETHasone 4 MG/ML Vial 6 MG IV (10:30)
[2021-06-26] MEDS: Enoxaparin 40 MG/0.4 ML Syringe SC ×2 (10:31→20:45)
[2021-06-26] MEDS: 0.9% Saline Lock 10 ML Syringe IV (10:31)
[2021-06-26] MEDS: Pantoprazole Sodium 40 MG Tablet PO (23:38)
[2021-06-27 03:50] VITALS: BP 113/68; PULSE 61; RESP 18; TEMP 36.6; O2SAT 95
[2021-06-27 06:07] LABS: Absolute Lymphocyte Count 1.87 X10^3/uL (0.83-4.51); Absolute Neutrophil Count 8.1 X10^3/uL (2.0-7.7); Basophil# 0.06 X10^3/uL; Basophil% 0.5 % (0-1); Hemoglobin 15.3 g/dL (13.0-16.5); Lymphocyte # 1.87 X10^3/ul (0.83-4.51); Lymphocyte % 16.6 % (19-41); Mean Corp Hgb Conc 33.3 g/dL (32-36); Mean Corpuscular Hgb 30.4 pg (27.0-32.0); Mean Corpuscular Volume 91.5 fL (80-94); Monocyte# 0.72 X10^3/uL; Monocyte% 6.4 % (0-10); NRBC Flagged by Analyzer 0.3 % (0-5); Neutrophil # 8.07 X10^3/uL (2.7-7.7); Neutrophil % 71.8 % (47-70); Platelet Count 387 K/mm3 (150-450); RBC Distribution Width CV 12.9 % (11.6-14.6); RBC Distribution Width SD 43.7 fl (35.1-43.9); Red Blood Count 5.03 M/mm3 (4.6-6.2); White Blood Count 11.3 K/mm3 (4.4-11.0)
[2021-06-27 06:52] LABS: ALB/GLOB Ratio 0.6 RATIO (0.9-2.4); AST(SGOT) 30 U/L (15-37); Alanine Aminotransfer ALT/SGPT 72 U/L (16-61); Albumin, Serum 2.5 g/dL (3.2-5.0); Alkaline Phosphatase 53 U/L (45-117); Anion Gap 8 (5-15); BUN 14 mg/dL (7-18); BUN/Creat Ratio 20.6 RATIO (10-20); Calcium,Total 8.5 mg/dL (8.5-10.1); Chloride 106 mmol/L (98-107); Creatinine, Serum 0.68 mg/dL (0.70-1.30); EST Glomerular Filtration Rate 137 mL/min (>60); Est Glom Filt Rate - Afr Amer 166 mL/min (>60); Globulin 4.1 g/dL (2.2-4.2); Glucose 130 mg/dL (74-106); Potassium 4.2 mmol/L (3.5-5.1); Protein, Total 6.6 g/dL (6.4-8.2); Sodium Level 140 mmol/L (136-145)
[2021-06-27 10:00] VITALS: BP 113/65; PULSE 81; RESP 18; TEMP 36.8; O2SAT 93
[2021-06-27] MEDS: 0.9% Saline Lock 10 ML Syringe IV (10:01)
[2021-06-27] MEDS: Enoxaparin 40 MG/0.4 ML Syringe SC ×2 (10:01→22:32)
[2021-06-27] MEDS: dexAMETHasone 4 MG/ML Vial 6 MG IV (10:02)
[2021-06-27] MEDS: Pantoprazole Sodium 40 MG Tablet PO (10:02)
[2021-06-27 13:12] VITALS: BP 126/70; PULSE 83; RESP 18; TEMP 36.6; O2SAT 93
--- NOTE | 2021-06-27 14:14 | NURSING ---
Patient voiced concerns regarding his financial situation and actually asked if he could sign out AMA. This RN strongly discouraged that and made him aware of some risks in leaving while being on 15 L of oxygen. He states he is not getting paid to just sit here. He is worried he will go bankrupt. Dr. Lott to be notified as well. This RN asked if a SW could call in and give resources but he declined. Will monitor.
--- NOTE | 2021-06-27 15:00 | CASEMGMT ---
Social Work Note SW updated that pt had financial concerns but didn't want to speak to this worker. SW did provide RN with financial resources to give to pt including [employer], [employer], [facility] assistance, [facility] (as they do have COVID-19 program for those with COVID-19), and [facility] [employer] of [facility]. SW also wrote on paper to educate pt on Disability, FMLA, and calling pt's companies his utilities are through to see if they have any holding periods/discounts for those individuals with COVID that are not able to work. SW asked RN to provide pt with resource and if he wanted to speak to this worker to let this worker know. RN to provide pt with financial resources. SW to remain available should pt want to speak to this worker. Bronwyn Garcia CITY WEIGHMASTER, SOLAR PROCESS ENGINEER
[2021-06-27 15:50] LABS: Pathologist Review Reviewed
--- NOTE | 2021-06-27 16:25 | PN.HOSP_ITS ---
Subjective Subjective Patient reports that his breathing is stable. Denies any significant cough or sputum production. Indicates that he really would like to go home and states that he cannot stay here another week. He is currently on 15 L nasal cannula with oxygen saturations 93 to 97%. Objective Data Objective Data Vital Signs: Vital Signs Temp Pulse Resp BP Pulse Ox 98 F 83 18 126/70 H 93 06/27/21 13:12 06/27/21 13:12 06/27/21 13:12 06/27/21 13:12 06/27/21 13:12 Oxygen Flow Rate (L/min) 15 Oxygen Delivery Method Nasal Cannula Weight: 137.438 kg Body Mass Index (BMI) 43.4 Intake & Output: Intake and Output for Last 24 Hours 06/25/21 06/26/21 06/27/21 23:59 23:59 23:59 Intake Total 650 / 650 250 / 250 270.5 / 270.5 Balance 650 / 650 250 / 250 270.5 / 270.5 Medical Nutrition Assessment Dietitian: Malnutrition Criteria Met Start: 06/23/21 15:02 Freq: Status: Active Protocol: Document 06/23/21 15:02 (Rec: 06/23/21 15:02 [id number]) Nutrition Malnutrition Evidence of Malnutrition Exists Yes Malnutrition (severe): Acute Illness/Injury Evidenced By Suboptimal Energy Intake ( Severe),Weight Loss (Severe) Clinical Problem Acute Disease or Injury Related Malnutrition Etiology severe, acute malnutrition r/t inadequate energy intake d/t COVID-19 Signs/Symptoms as evidenced by unintentional wt loss of 17#/5.3% x 6 days, estimated PO intake meeting < 50% of estimated nutritional needs >5 days Status Active Problem Recommendation Dietitian Recommendations/Changes continue regular diet; will add [place] Instant Breakfast w/ breakfast for additional calories/protein if consumed. Lab / Micro Data Result Diagrams: 06/27/21 05:46 06/27/21 05:46 Labs: Laboratory Results - last 24 hr 06/26/21 06:20: Diff Path Review Reviewed 06/27/21 05:46: WBC 11.3 H, RBC 5.03, Hgb 15.3, Hct 46.0, MCV 91.5, MCH 30.4, MCHC 33.3, RDW Std Deviation 43.7, RDW Coeff of [place] 12.9, Plt Count 387, MPV 10.0, Immature Gran % (Auto) 4.700 H, Neut % (Auto) 71.8 H, Lymph % (Auto) 16.6 L, [place] % (Auto) 6.4, Eos % (Auto) 0.0, Baso % (Auto) 0.5, Absolute Neuts (auto) 8.1 H, Absolute Lymphs (auto) 1.87, Nucleated RBC % 0.3 06/27/21 05:46: Sodium 140, Potassium 4.2, Chloride 106, Carbon Dioxide 26.0, Anion Gap 8, BUN 14, Creatinine 0.68 L, Estim Creat Clear Calc 149.10, Est GFR (MDRD) Af Amer 166, Est GFR (MDRD) Non-Af 137, BUN/Creatinine Ratio 20.6 H, Glucose 130 H, Calcium 8.5, Total Bilirubin 0.40, AST 30, ALT 72 H, Alkaline Phosphatase 53, Total Protein 6.6, Albumin 2.5 L, Globulin 4.1, Albumin/Globulin Ratio 0.6 L Physical Exam Const alert, oriented x3, no apparent distress and healthy appearing Constitutional Narrative: Morbidly obese white male lying in bed, appears comfortable, watching television, nontoxic Exam Limitations: no limitations HEENT head/scalp atraumatic and moist oral mucous membranes HEENT Narrative: No thrush noted on exam Head and Scalp: normocephalic Resp normal respiratory effort, no retractions and no use of accessory muscles Resp Narrative: Few crackles at bases but otherwise clear Auscultation: Negative for crackles, rales, rhonchi or wheezes Cardio regular rate, regular rhythm, S1 normal heart sound, S2 normal heart sound, no m urmurs, no rub, no gallops, no clicks and no JVD GI normal to inspection, nondistended, normoactive bowel sounds, soft to palpation, non-tender and non-distended; Negative for hepatosplenomegaly Extremity no clubbing, cyanosis or edema Peripheral Pulses: Yes pulses 2+ throughout Skin no rashes or lesions noted, no wounds, skin turgor normal, no jaundice, no petechiae and no mottling Neuro oriented x3, moves all extremities and no focal motor deficits Sensorium / Orientation: awake and alert Speech: speech normal Assessment & Plan Assessment/Plan (1) Acute respiratory failure with hypoxia: (2) COVID-19: (3) Transaminitis: PLAN: Acute hypoxic respiratory failure secondary to COVID-19 pneumonia -Patient is currently requiring 15 L nasal cannula with an SPO2 of 93 to 97% -Continue Decadron day 4 of 10 -Start remdesivir -Consult ID for consideration for baricitinib with worsening respiratory status -Continue incentive spirometry and prone lying -Add Acapella -PPI with steroid use -Consider pulmonary consult if patient worsens with regards to respiratory statu s and requires air Vo Transaminitis -Appears to be improving -Follow closely with remdesivir initiation Morbid obesity -Recommend weight loss -Complicates overall treatment, prognosis, outcomes -BMI is 43.5 DVT prophylaxis -Lovenox 40 mg IV push twice daily CODE STATUS -Full code Charges/Coding Visit Charges Inpatient E&M: 86420 Subs Hosp L2
[2021-06-27 17:03] VITALS: O2SAT 93
[2021-06-27 17:22] VITALS: BP 116/74; PULSE 75; RESP 18; TEMP 37; O2SAT 93
[2021-06-27 22:27] VITALS: BP 108/64; PULSE 68; RESP 17; TEMP 36.8; O2SAT 96
[2021-06-28 03:19] VITALS: BP 121/71; PULSE 68; RESP 17; TEMP 36.9; O2SAT 96
[2021-06-28 06:42] LABS: Hematocrit 45.2 % (40-54); Mean Corp Hgb Conc 33.2 g/dL (32-36); Mean Corpuscular Hgb 30.5 pg (27.0-32.0); Mean Corpuscular Volume 91.9 fL (80-94); Platelet Count 412 K/mm3 (150-450); RBC Distribution Width CV 13.1 % (11.6-14.6); RBC Distribution Width SD 44.3 fl (35.1-43.9); Red Blood Count 4.92 M/mm3 (4.6-6.2); White Blood Count 11.9 K/mm3 (4.4-11.0)
[2021-06-28 07:10] LABS: ALB/GLOB Ratio 0.6 RATIO (0.9-2.4); AST(SGOT) 40 U/L (15-37); Alanine Aminotransfer ALT/SGPT 83 U/L (16-61); Albumin, Serum 2.7 g/dL (3.2-5.0); Alkaline Phosphatase 54 U/L (45-117); Anion Gap 6 (5-15); BUN 15 mg/dL (7-18); BUN/Creat Ratio 21.6 RATIO (10-20); Calcium,Total 8.7 mg/dL (8.5-10.1); Chloride 106 mmol/L (98-107); Creatinine, Serum 0.69 mg/dL (0.70-1.30); EST Glomerular Filtration Rate 134 mL/min (>60); Est Glom Filt Rate - Afr Amer 162 mL/min (>60); Estimated Creatinine Clearance 146.94 ml/min; Globulin 4.3 g/dL (2.2-4.2); Glucose 122 mg/dL (74-106); Potassium 4.4 mmol/L (3.5-5.1); Sodium Level 138 mmol/L (136-145)
[2021-06-28 08:45] VITALS: BP 116/73; PULSE 88; RESP 18; TEMP 37.1; O2SAT 93
[2021-06-28] MEDS: Enoxaparin 40 MG/0.4 ML Syringe SC ×2 (08:48→20:46)
[2021-06-28] MEDS: Pantoprazole Sodium 40 MG Tablet PO ×2 (08:48→08:49)
[2021-06-28] MEDS: dexAMETHasone 4 MG/ML Vial 6 MG IV (08:49)
[2021-06-28] MEDS: 0.9% Saline Lock 10 ML Syringe IV (08:49)
[2021-06-28 09:01] VITALS: RESP 20; O2SAT 92
--- NOTE | 2021-06-28 10:11 | PCM.CONS.GEN ---
Assessment & Plan Assessment/Plan (1) Acute respiratory failure with hypoxia: (2) COVID-19: PLAN: Sx started 06/18. Isolate until 07/08. Unvaccinated, recommended vaccine in next 1-2 months. On dex. Completed remdesivir. O2 improved this Am from 15L down to 10L, so at this point would not start baricitinib. If worsens again, would check d-dimer/BNP/procalcitonin/sputum cx, consider CTA of chest. Will follow, thank you HPI Consult Data Date of Consult: 06/28/21 HPI Narrative HPI Narrative: MAHESH SMITH, is a 40 M who presented 06/23 with sx since 06/18. C/o headache, fever, aches, n/v/d, mild cough, fatigue, change in taste/smell. Unvaccinated. 2 others at home sick with covid, recovered. Came to ED, admitted with hypoxia, started on dex and remdesivir. O2 worsened yesterday, feeling better today. Full ROS performed and neg except as noted above. PFSH Medical History no medical history Home Medications dexamethasone [Decadron] 6 mg PO DAILY 7 Days #7 tab 06/23/21 [Rx Last Taken Unknown] ondansetron 4 mg PO Q8H PRN 4 Days tab 06/23/21 [Rx Last Taken Unknown] Allergy/AdvReac Type Severity Reaction Status Date / Time No Known Allergies Allergy Verified 04/28/20 17:43 Family History (Updated 06/23/21 @ 13:41 by Cathy Nair NP-C) Father Myocardial infarction Surgical History History of tonsillectomy Surgical History no surgical history Social History (Updated 06/23/21 @ 13:41 by Cathy Nair WOOD STRIP BLOCK FLOOR INSTALLER-C) Smoking Status: Never smoker alcohol intake: never substance use type: does not use Physical Exam Const alert, oriented x3 and no apparent distress General Appearance: cooperative Exam Limitations: no limitations HEENT normocephalic and head/scalp atraumatic Eyes PERRL and EOMs intact bilaterally Neck supple and No nodes Resp Auscultation: diminished lung sounds Cardio regular rate and regular rhythm GI normal to inspection, nondistended, normoactive bowel sounds Extremity no clubbing, cyanosis or edema Skin no rashes or lesions noted Neuro CN's II-XII intact bilaterally Medical Records Data Medical Nutrition Assessment Dietitian: Malnutrition Criteria Met Start: 06/23/21 15:02 Freq: Status: Active Protocol: Document 06/23/21 15:02 (Rec: 06/23/21 15:02 [id number]) Nutrition Malnutrition Evidence of Malnutrition Exists Yes Malnutrition (severe): Acute Illness/Injury Evidenced By Suboptimal Energy Intake ( Severe),Weight Loss (Severe) Clinical Problem Acute Disease or Injury Related Malnutrition Etiology severe, acute malnutrition r/t inadequate energy intake d/t COVID-19 Signs/Symptoms as evidenced by unintentional wt loss of 17#/5.3% x 6 days, estimated PO intake meeting < 50% of estimated nutritional needs >5 days Status Active Problem Recommendation Dietitian Recommendations/Changes continue regular diet; will add [place] Instant Breakfast w/ breakfast for additional calories/protein if consumed. Lab / Micro Data Result Diagrams: 06/28/21 06:22 06/28/21 06:22 Labs: Laboratory Results - last 24 hr 06/26/21 06:20: Diff Path Review Reviewed 06/28/21 06:22: WBC 11.9 H, RBC 4.92, Hgb 15.0, Hct 45.2, MCV 91.9, MCH 30.5, MCHC 33.2, RDW Std Deviation 44.3 H, RDW Coeff of [place] 13.1, Plt Count 412, MPV 10.0 06/28/21 06:22: Sodium 138, Potassium 4.4, Chloride 106, Carbon Dioxide 26.0, Anion Gap 6, BUN 15, Creatinine 0.69 L, Estim Creat Clear Calc 146.94, Est GFR (MDRD) Af Amer 162, Est GFR (MDRD) Non-Af 134, BUN/Creatinine Ratio 21.6 H, Glucose 122 H, Calcium 8.7, Total Bilirubin 0.50, AST 40 H, ALT 83 H, Alkaline Phosphatase 54, Total Protein 7.0, Albumin 2.7 L, Globulin 4.3 H, Albumin/Globulin Ratio 0.6 L
[2021-06-28 16:07] VITALS: BP 147/84; PULSE 80; RESP 18; TEMP 36.6; O2SAT 92
[2021-06-28 16:08] VITALS: RESP 20
[2021-06-28 20:43] VITALS: BP 117/79; PULSE 72; RESP 17; TEMP 37.1; O2SAT 93
[2021-06-29 03:22] VITALS: BP 127/79; PULSE 64; RESP 17; TEMP 36.9; O2SAT 95
[2021-06-29 07:28] LABS: Hematocrit 47.5 % (40-54); Hemoglobin 15.5 g/dL (13.0-16.5); Mean Corp Hgb Conc 32.6 g/dL (32-36); Mean Corpuscular Hgb 30.3 pg (27.0-32.0); Mean Corpuscular Volume 92.8 fL (80-94); Mean Platelet Vol. 10.2 fl (6.2-12.0); Platelet Count 448 K/mm3 (150-450); RBC Distribution Width CV 12.9 % (11.6-14.6); RBC Distribution Width SD 43.8 fl (35.1-43.9); Red Blood Count 5.12 M/mm3 (4.6-6.2)
[2021-06-29 07:51] VITALS: O2SAT 96
[2021-06-29 07:58] LABS: ALB/GLOB Ratio 0.7 RATIO (0.9-2.4); AST(SGOT) 33 U/L (15-37); Alanine Aminotransfer ALT/SGPT 91 U/L (16-61); Albumin, Serum 2.9 g/dL (3.2-5.0); Alkaline Phosphatase 52 U/L (45-117); Anion Gap 7 (5-15); BUN 16 mg/dL (7-18); BUN/Creat Ratio 19.6 RATIO (10-20); Calcium,Total 8.9 mg/dL (8.5-10.1); Chloride 102 mmol/L (98-107); Creatinine, Serum 0.82 mg/dL (0.70-1.30); EST Glomerular Filtration Rate 110 mL/min (>60); Est Glom Filt Rate - Afr Amer 134 mL/min (>60); Estimated Creatinine Clearance 123.64 ml/min; Globulin 4.1 g/dL (2.2-4.2); Glucose 104 mg/dL (74-106); Potassium 4.2 mmol/L (3.5-5.1); Sodium Level 140 mmol/L (136-145)
[2021-06-29] MEDS: Pantoprazole Sodium 40 MG Tablet PO (08:30)
[2021-06-29] MEDS: dexAMETHasone 4 MG/ML Vial 6 MG IV (08:30)
[2021-06-29] MEDS: Enoxaparin 40 MG/0.4 ML Syringe SC (08:30)
[2021-06-29] MEDS: 0.9% Saline Lock 10 ML Syringe IV (08:31)
[2021-06-29 08:37] VITALS: BP 119/70; PULSE 75; RESP 18; TEMP 37.2; O2SAT 93
[2021-06-29 08:39] VITALS: O2SAT 88; O2SAT 90; O2SAT 92
--- NOTE | 2021-06-29 09:52 | CASEMGMT ---
Pt qualifies for home O2, referral fax[place] to [facility] [place]. TC to [facility] to make aware of referral and need for portable tank to dc home on.
--- NOTE | 2021-06-29 13:36 | DS.PCM_ITS ---
Providers Date of Admission: 06/23/21 Primary Care Physician: Dr. Reinier Mclean MD Consultations 06/27/21 16:32 Consult: Infectious Disease Routine Consulting Provider: Ritchie London Reason for Consult: ? Baricitinib EMERGENT Consult: No MD Notified: Yes Date Notified: 06/27/21 Time Notified: 16:32 Method of Notification: Text Reason For Visit: COVID HYPOXIA VOMITING Diagnosis Discharge Diagnosis (1) Acute respiratory failure with hypoxia: Status: Acute Code(s): J96.01 - Acute respiratory failure with hypoxia (2) COVID-19: Status: Acute Code(s): U07.1 - COVID-19 Medications at Discharge Home Medications dexamethasone [Decadron] 6 mg PO DAILY 7 Days #7 tab 06/23/21 ondansetron 4 mg PO Q8H PRN 4 Days tab 06/23/21 dexamethasone [Decadron] 6 mg PO DAILY #5 tab 06/29/21 Hospital Course Operations None Procedures None Summary of Care Provided Minutes Spent on Discharge: 35 Hospital Course: Mr Weber is a 40-year-old white male who presented to the emergency department [facility] on 06/23/2021 with a chief complaint of shortness of breath and hypoxia. He had began having symptoms on 06/18/2021 of Covid and was tested positive on 06/20/2021. He purchased a home pulse oximetry monitor which showed desaturations on the day of presentation. With initiation of his symptoms, he had nausea, vomiting, diarrhea, as well as fevers. In the emergency department he was requiring 4 L nasal cannula to maintain oxygen saturation greater than 90%. He was given Decadron, IV fluids, and Zofran in the emergency department admitted to the hospital for continued care. He was admitted to the medical floor and placed on Decadron and remdesivir. During his hospitalization, he required as much supplemental oxygen is 15 L of heated high flow nasal cannula but we were able to slowly decrease his oxygenation through the course of his stay. On the day of discharge and ambulatory pulse oximetry was obtained and he was noted to need 2 L with ambulation. He was initially on no oxygen at rest but his oxygenation status did decline to the point where he was 88% on room air and therefore was placed on 2 L at rest as well. He is to continue his course of Decadron to complete a total of 10 days. He completed remdesivir. He was instructed to quarantine until 07/09/2021 and thereafter was informed that he is able to be vaccinated if he so desires. He has a pulse oximetry at home and states he will continue to monitor his pulse oximetry and represent to the hospital if he becomes type more hypoxic. He was discharged in stable condition. He is to follow-up with his PCP in 2 weeks after he is completed quarantine and with pulmonology in 4 to 6 weeks. Discharge diagnoses: Acute hypoxic respiratory failure COVID-19 pneumonia Transaminitis Morbid obesity Physical Exam Const alert, oriented x3, no apparent distress and healthy appearing Constitutional Narrative: Morbidly obese white male sitting up on the edge of the bed, appears comfortable, talking on the phone, nontoxic General Appearance: cooperative, comfortable, well kempt and well developed Orientation / Consciousness: awake Exam Limitations: no limitations HEENT normocephalic, head/scalp atraumatic, hearing grossly normal bilaterally and moist oral mucous membranes HEENT Narrative: No thrush Eyes PERRL, EOMs intact bilaterally, conjunctivae normal and no scleral icterus Neck full ROM, no lymphadenopathy, supple and no JVD Neck Narrative: Trachea midline General: trachea midline Resp normal respiratory effort, normal air movement, no retractions, no use of accessory muscles and clear to auscultation bilaterally Resp Narrative: Diminished diffusely but clear Effort and Inspection: tachypneic Auscultation: Negative for crackles, rales, rhonchi or wheezes Cardio regular rate, regular rhythm, S1 normal heart sound, S2 normal heart sound, no murmurs, no rub, no gallops, no clicks, no JVD and peripheral pulses 2+ throughout GI normal to inspection, nondistended, normoactive bowel sounds, soft to palpation, non-tender and non-distended; Negative for hepatosplenomegaly Extremity normal to inspection, full ROM, normal capillary refill and no clubbing, c yanosis or edema General Extremity: no tenderness to palpation of joints or extremities Skin no rashes or lesions noted, no wounds, skin turgor normal, no jaundice, no petechiae and no mottling General Skin Exam: no breakdown and turgor normal Lesions: no lesions Rashes: no rashes Neuro oriented x3, moves all extremities, no focal motor deficits and no sensory deficits noted Sensorium / Orientation: awake and alert Speech: speech normal Motor Exam: strength 5/5 throughout; Negative for general weakness Psych thought process normal, cooperative and affect normal Appearance: appropriate Medical Records Data Medical Nutrition Assessment Dietitian: Malnutrition Criteria Met Start: 06/23/21 15:02 Freq: Status: Active Protocol: Document 06/23/21 15:02 (Rec: 06/23/21 15:02 [id number]) Nutrition Malnutrition Evidence of Malnutrition Exists Yes Malnutrition (severe): Acute Illness/Injury Evidenced By Suboptimal Energy Intake ( Severe),Weight Loss (Severe) Clinical Problem Acute Disease or Injury Related Malnutrition Etiology severe, acute malnutrition r/t inadequate energy intake d/t COVID-19 Signs/Symptoms as evidenced by unintentional wt loss of 17#/5.3% x 6 days, estimated PO intake meeting < 50% of estimated nutritional needs >5 days Status Active Problem Recommendation Dietitian Recommendations/Changes continue regular diet; will add [place] Instant Breakfast w/ breakfast for additional calories/protein if consumed. Weight / BMI Weight Weight: 137.438 kg Body Mass Index (BMI) 43.4 ABG / Lab / Microbiology Data Result Diagrams: 06/29/21 06:55 06/29/21 06:55 Laboratory: Laboratory Results - last 24 hr 06/29/21 06:55: WBC 12.0 H, RBC 5.12, Hgb 15.5, Hct 47.5, MCV 92.8, MCH 30.3, M CHC 32.6, RDW Std Deviation 43.8, RDW Coeff of [place] 12.9, Plt Count 448, MPV 10.2 06/29/21 06:55: Sodium 140, Potassium 4.2, Chloride 102, Carbon Dioxide 31.0, Anion Gap 7, BUN 16, Creatinine 0.82, Estim Creat Clear Calc 123.64, Est GFR (MDRD) Af Amer 134, Est GFR (MDRD) Non-Af 110, BUN/Creatinine Ratio 19.6, Glucose 104, Calcium 8.9, Total Bilirubin 0.40, AST 33, ALT 91 H, Alkaline Phosphatase 52, Total Protein 7.0, Albumin 2.9 L, Globulin 4.1, Albumin/Globulin Ratio 0.7 L D/C Instructions Discharge Diet: No restrictions Discharge Activity: Return to Normal Activity Return to work on: 07/10/21 Meaningful Use Info Meaningful Use Diagnoses (Choose all that apply): None applicable Discharge Plan Admission Admit Date/Time: 06/23/21 12:30 Primary Reason for Your Visit: COVID-19 Pneumonia Attending Provider: Sharyn Lott Primary Care Provider: Reinier Mclean Consulting Providers: Yana Rosales NP ; Ritchie London Instructions Patient Instructions: Coronavirus Disease 2019 (COVID-19): Caring for Yourself or Others, Preventing the Spread of Infection Understanding Isolation Procedures, Disinfecting Your Home of COVID-19 Additional Instructions / Restrictions: Decadron daily until completed You need to quarantine for 20 days from the onset of your symptoms--> end date 07/09/2021 Ok for vaccination once out of quarantine check pulse oximetry periodically Discharge Orders/Prescriptions Prescriptions: New dexamethasone [Decadron] 6 mg tablet 6 mg PO DAILY 7 Days Qty: 7 RF: 0 ondansetron 4 mg tablet,disintegrating 4 mg PO Q8H PRN (Reason: nausea and vomiting) 4 Days RF: 0 dexamethasone [Decadron] 6 mg tablet 6 mg PO DAILY Qty: 5 RF: 0 Referrals / Follow Up: Reinier Mclean MD [Primary Care Provider] - Within 2 Weeks Yana Rosales NP, CYLINDER BATCHER-C [Nurse Practitioner] - See Referral Note (4-6 weeks) Disposition Disposition (needs filled in before D/C Order can be placed): Home, Self Care Charges/Coding Visit Charges Inpatient E&M: 71256 Disch Hosp
[2021-06-29 14:07] VITALS: BP 119/69; PULSE 84; RESP 18; TEMP 37; O2SAT 94
--- NOTE | 2021-06-30 12:09 | CASEMGMT ---
RN CM Discharge Follow Up Phone Call: BRANDEN: Uri Strata:2 Call Date: 06/30/21 Discharge Date: 06/29/21 Time of Call:1210 Duration:1 min Admitting Dx: COVID hypoxia vomiting RN TEJAS attempted to complete follow up phone call after recent hospitalization, voicemail box not set up, unable to leave a message. TC to pt sig other, she answered and states she will notify pt to call this RN TEJAS back. Left call back info with her. Received tc from Agata who states pt has not called to set up home O2 after dc yesterday. She is aware of pt mailing address vs physical address.
== END 2021-06-29 14:58 | disposition home or self-care (01) | DRG 137 ==
LOC: ED 12:17 → MS3 14:09
PROVIDERS: Nurse Practitioner Family; Admitting Provider Internal Medicine; Emergency Provider Emergency Medicine; PCP Family Medicine; Visit Provider Internal Medicine
DX: U07.1 COVID-19 (principal); J12.82 Pneumonia due to coronavirus disease 2019; J96.01 Acute respiratory failure with hypoxia; E86.0 Dehydration; E87.6 Hypokalemia; E66.01 Morbid (severe) obesity due to excess calories; R74.01 Elevation of levels of liver transaminase levels; Z28.3 Underimmunization status; Z68.41 Body mass index [BMI] 40.0-44.9, adult
CPT/HCPCS: 36415; 71045; 80048; 80053; 80076; 85025; 85027; 94667; 94762; 97802; 99251; 99284; J7030; J7050; A4216; G0463; J2405

== ENCOUNTER 2025-07-20 06:27 | Emergency (ER) | payer OTHER, SELFPAY ==
[2025-07-20] VITALS (18 sets, daily range): BP systolic 122–168; BP diastolic 67–116; PULSE 0–76; RESP 0–21; TEMP 36.8–36.9; O2SAT 95–100; BMI 41.7
--- NOTE | 2025-07-20 06:49 | EKG12_ITS ---
Test Reason : CHEST PAIN Blood Pressure : */* mmHG Vent. Rate : 67 BPM Atrial Rate : 67 BPM P-R Int : 130 ms QRS Dur : 84 ms QT Int : 384 ms P-R-T Axes : 15 -10 -11 degrees QTcB Int : 405 ms Normal sinus rhythm Minimal voltage criteria for LVH, may be normal variant ( R in aVL ) Borderline ECG Confirmed by Kvng Valadez ([id number]), video tape editor BENITO YANEZ ([id number]) on 07/21/2025 11:47:21 AM Referred By: Confirmed By: Kvng Valadez
--- NOTE | 2025-07-20 06:51 | EX.ED.DYSGE1 ---
HPI History of Present Illness Chief Complaint: Chest Pain Informant: patient Narrative Narrative: Patient is a 44-year-old male who reports no significant past medical history. He states that he went to bed normally last night and then awoke around 2:30 in the morning with midsternal to left-sided lower chest/upper abdominal discomfort. He describes the pain as a more pressure sensation. He states he does feel it in his left upper back as well. He reports that he has experienced bouts of nausea and diaphoresis. He reports his father had a heart attack at a young age of approximately 40-45. He denies any history of excessive stimulant use or illicit drug use. He denies any history of smoking/nicotine use. He denies any recent travel surgery or history of DVT/PE. He he does admit to history of gastritis and states he did eat spaghetti last night for dinner. However he reports that this feels different from his previous bouts of GERD. With concern this could be cardiac in nature he presents for evaluation. [facility] Medical History Acute respiratory failure with hypoxia COVID-19 Home Medications Medication Instructions Recorded Last Taken Type bupropion HCl 300 mg 24 hr tablet, 300 mg PO DAILY 07/20/25 Unknown History extended release (Wellbutrin XL) omeprazole 40 mg capsule,delayed 40 mg PO DAILY 07/20/25 Unknown History release Allergy/AdvReac Type Severity Reaction Status Date / Time No Known Allergies Allergy Verified 07/20/25 06:27 Family History (Updated 06/23/21 @ 13:41 by Cathy Nair NP-C) Father Myocardial infarction Surgical History History of tonsillectomy Social History (Updated 06/23/21 @ 13:41 by Cathy Nair INSTRUCTION LIBRARIAN-C) Smoking Status: Never smoker alcohol intake: never substance use type: does not use ROS ROS ED Constitutional Constitutional ED: Reports sweats; Denies chills or fever(s) Eyes Eyes: Denies blurry vision or change in vision ENT ENT ED: Denies sore throat Cardiovascular Cardiovascular: Reports chest pain; Denies palpitations or racing heartbeat Respiratory/Chest Respiratory/Chest: Denies cough or dyspnea Gastrointestinal Gastrointestinal: Reports abdominal pain and nausea; Denies diarrhea or vomiting Musculoskeletal Musculoskeletal: Reports back pain Integumentary Denies rash Neurologic Neurologic: Denies headache(s) Hematologic/Lymphatic Hematologic/Lymphatic: Denies easy bleeding or easy bruising EXAM Physical Exam Const Vital Signs: 07/20/25 06:28 07/20/25 06:32 Temperature 98.4 F Temperature Source Oral Pulse Rate 70 Respiratory Rate 19 H Respiratory Effort Normal Non-Labored Blood Pressure 155/107 H Blood Pressure Mean 123 Pulse Ox 98 Oxygen Delivery Method Room Air Positive well nourished, well developed and obese General Appearance ED: well developed; Negative for pallor Nutritional Appearance: obese HEENT HEENT Narrative: Normocephalic atraumatic Eyes PERRL and EOMs intact bilaterally General Eye ED: Negative for scleral icterus Neck supple and no JVD Chest Wall Chest Narrative: There is reproducible chest pain with palpation along the lower mid sternum to the left lower/mid chest wall No bony deformity or subcutaneous emphysema No overlying soft tissue changes to suggest trauma or infection Resp normal respiratory effort and clear to auscultation bilaterally Cardio regular rate and regular rhythm Rate: other Other Details: Heart is regular rate and rhythm without murmurs rubs or gallop Radial and carotid pulses are equal and symmetric No carotid bruit noted GI non-distended and no masses GI Narrative: Abdomen is soft and nondistended with normal active bowel sounds Patient has pain on palpation in the midepigastric and left upper quadrant region without voluntary guarding no rigidity No pulsatile mass or fluid wave Negative Cowart sign No peritoneal signs Auscultation: normoactive bowel sounds Palpation: soft Back/Spine no CVA tenderness Extremity normal to inspection Extremity Narrative: No asymmetric edema no pitting edema negative Homans' sign bilaterally Neuro oriented x3, CN's II-XII intact bilaterally and no sensory deficits noted Sensorium / Orientation: alert Motor Exam: strength 5/5 throughout Psych Psych Narrative: Patient has a nervous/anxious affect Mood & Affect: anxious Skin no rashes or lesions noted General Skin Exam: Negative for jaundice or pallor MDM MDM MDM Narrative Medical decision making narrative: Patient arrived to the ER hypertensive but otherwise with stable vitals. Patient is also visibly anxious/nervous which could be the cause of his hypertension. With reported history of intermittent GERD/gastritis and the fact he ate spaghetti for dinner patient symptoms could very well be due to stomach inflammation as he does have pain on palpation in the midepigastric region. However and also to ensure that this is not due to biliary colic or pancreatitis abdominal labs will be obtained. In order to ensure that his chest discomfort is not from a lung pathology such as pneumonia or pneumothorax a chest x-ray will be ordered. To assess for acute coronary syndrome versus cardiac dysrhythmia an EKG was obtained. This revealed no signs of ischemia or STEMI or abnormal heart rhythm. The patient will require initial and delta troponin in order to ensure that his discomfort is not secondary to ACS. Because he also reports pain in his back and D-dimer will be obtained to assess for PE or dissection. With his upper mid abdominal discomfort and chart review showing history of gastritis/GERD I would lean towards acid reflux as a potential cause of his symptoms and therefore we will start with a GI cocktail to see if this helps reduce his discomfort. I do feel his blood pressure is elevated secondary to anxiety and will discontinue to watch it at this time versus provide emergent treatment. I do feel that if the patient's overall workup is negative that he should be safe for discharge as he is overall low risk for ACS. At this time as the remainder of his workup is still pending he will be signed out to the day physician Dr. Velazquez History & Record Review Discussion w/independent historian: Patient Lab Data Labs: Laboratory Results - last 24 hr 07/20/25 06:37 WBC 8.3 RBC 5.10 Hgb 15.5 Hct 46.0 MCV 90.2 MCH 30.4 MCHC 33.7 RDW Std Deviation 44.7 H RDW Coeff of [place] 13.4 Plt Count 265 MPV 10.5 Immature Gran % (Auto) 0.400 Neut % (Auto) 53.3 Lymph % (Auto) 33.1 [place] % (Auto) 9.5 Eos % (Auto) 3.1 Baso % (Auto) 0.6 Absolute Neuts (auto) 4.4 Absolute Lymphs (auto) 2.74 Nucleated RBC % 0 Radiography Diagnostic Testing: Chest x-ray as interpreted by the emergency medicine physician reveals no acute infiltrate pneumothorax pleural effusion no widening of the mediastinum Discharge Plan Triage Chief Complaint: Chest Pain ED Provider: Daryn White Dx/Rx/DC Orders Clinical Impression: Nonspecific chest pain Prescriptions: No Action omeprazole 40 mg capsule,delayed release(DR/EC) 40 mg PO DAILY bupropion HCl [Wellbutrin XL] 300 mg tablet extended release 24 hr 300 mg PO DAILY Primary Care Provider: Reinier Mclean Referrals: Reinier Mclean MD [Primary Care Provider, Family Practice] Print Language: [place]
[2025-07-20] MEDS: Lidocaine 2% Viscous15 ML UDC 15 ML PO (06:56)
--- NOTE | 2025-07-20 06:56 | RAD_ITS ---
PROCEDURE: CHEST PA AND LATERAL 07/20/2025 REASON FOR EXAM: CHEST PAIN TECHNIQUE: Procedure Code: RADCXR Modality: DX Procedure: CHEST PA AND LATERAL COMPARISON: 06/23/2021. FINDINGS: The lungs are expanded. There is no demonstrated parenchymal abnormality. There is no demonstrated pleural abnormality. Normal heart and pericardium. Normal mediastinum and jose manuel. Normal visualized pulmonary arteries. Normal visualized aortic arch and descending thoracic aorta. Normal visualized thoracic spine. Normal visualized ribs, clavicles, and shoulders. There is no demonstrated abnormality of the visualized soft tissue structures of the upper abdomen. RAD/Chest PA and Lateral IMPRESSION: No evidence for acute abnormality. Reading [facility]
[2025-07-20 07:01] LABS: Hematocrit 46.0 % (40-54); Hemoglobin 15.5 g/dL (13.0-16.5); Immature Granulocytes Count 0.030 X10^3/uL (0.0-0.0); Mean Corp Hgb Conc 33.7 g/dL (32-36); Mean Corpuscular Volume 90.2 fL (80-94); Mean Platelet Vol. 10.5 fl (6.2-12.0); NRBC Flagged by Analyzer 0 % (0-5); Platelet Count 265 K/mm3 (150-450); RBC Distribution Width CV 13.4 % (11.6-14.6); RBC Distribution Width SD 44.7 fl (35.1-43.9); Red Blood Count 5.10 M/mm3 (4.6-6.2); White Blood Count 8.3 K/mm3 (4.4-11.0)
--- OUTSIDE RECORDS SUMMARY | 2025-07-20 07:15 | XMS RPT_ITS | CCD ---
Author Organization [facility] Results Test Name Value Interpretation Reference Range Facil ity COMPREHENSIVE METABOLIC PANE Tom 03-06-2025 Albumin [Mass/Vol] 4.7 g/dL Normal 3.6-5.1 [facility] Comment on above: Performed By: #### 4 96, 15959 #### [facility] [place] [address] [place]: Francesco Jacobo MD Albumin/Globulin [Mass ratio] 2.2 {ratio} Normal 1.0-2.5 [facility] Comment on above: Performed By: #### 4 96, 14951 #### [facility] [place] [address] [place]: Francesco Jacobo MD ALP [Catalytic activity/Vol] 52 U/L Normal 36-130 [facility] Comment on above: Performed By: #### 4 96, 15091 #### [facility] [place] [address] [place]: Francesco Jacobo MD ALT [Catalytic activity/Vol] 25 U/L Normal 9-46 [facility] Comment on above: Performed By: #### 4 96, 40313 #### [facility] [place] [address] [place]: Francesco Jacobo MD AST [Catalytic activity/Vol] 17 U/L Normal 10-40 [facility] Comment on above: Performed By: #### 4 96, 78073 #### [facility] [place] [address] [place]: Francesco Jacobo MD Bilirubin [Mass/Vol] 0.3 mg/dL Normal 0.2-1.2 [facility] Comment on above: Performed By: #### 4 96, 91869 #### [facility] [place] [address] [place]: Francesco Jacobo MD BUN/CREATININE RATIO SEE NOTE: Normal 6-22 [facility] Comment on above: Result Comment: Not Reported: BUN and Creatinine are within reference range. Performed By: #### 4 96, 58390 #### [facility] [place] [address] [place]: Francesco Jacobo MD Calcium [Mass/Vol] 8.9 mg/dL Normal 8.6-10.3 [facility] Comment on above: Performed By: #### 4 96, 54721 #### [facility] [place] [address] [place]: Francesco Jacobo MD Chloride [Moles/Vol] 105 mmol/L Normal 98-110 [facility] Comment on above: Performed By: #### 4 96, 01112 #### [facility] [place] [address] [place]: Francesco Jacobo MD CO2 [Moles/Vol] 23 mmol/L Normal 20-32 [facility] Comment on above: Performed By: #### 4 96, 52089 #### [facility] [place] [address] [place]: Francesco Jacobo MD Creatinine [Mass/Vol] 0.84 mg/dL Normal 0.60-1.29 [facility] Comment on above: Performed By: #### 4 96, 27196 #### [facility] [place] [address] [place]: Francesco Jacobo MD GFR/1.73 sq M.predicted among non-blacks MDRD (S/P/Bld) [Vol rate/Area] 110 mL/min/{1.73_m2} Normal > OR = 60 [facility] Comment on above: Performed By: #### 4 96, 33674 #### [facility] [place] [address] [place]: Francesco Jacobo MD Globulin (S) [Mass/Vol] 2.1 g/dL Normal 1.9-3.7 [facility] Comment on above: Performed By: #### 4 96, 54830 #### [facility] [place] [address] [place]: Francesco Jacobo MD Glucose [Mass/Vol] 105 mg/dL High 65-99 [facility] Comment on above: Result Comment: Fasting reference interval For someone without known diabetes, a glucose value between 100 and 125 mg/dL is consistent with prediabetes and should be confirmed with a follow-up test. Performed By: #### 4 96, 00493 #### [facility] [place] [address] [place]: Francesco Jacobo MD Potassium [Moles/Vol] 4.6 mmol/L Normal 3.5-5.3 [facility] Comment on above: Performed By: #### 4 96, 87613 #### [facility] [place] [address] [place]: Francesco Jacobo MD Protein [Mass/Vol] 6.8 g/dL Normal 6.1-8.1 [facility] Comment on above: Performed By: #### 4 96, 04528 #### [facility] [place] [address] [place]: Francesco Jacobo MD Sodium [Moles/Vol] 141 mmol/L Normal 135-146 [facility] Comment on above: Performed By: #### 4 96, 40877 #### [facility] [place] [address] [place]: Francesco Jacobo MD Urea nitrogen [Mass/Vol] 14 mg/dL Normal 7-25 [facility] Comment on above: Performed By: #### 4 96, 26832 #### [facility] [place] [address] [place] [address] [place]: Francesco Jacobo MD HEMOGLOBIN A1con 03-06-2025 HbA1c (Bld) [Mass fraction] 6.0 % High <5.7 [facility] Comment on above: Result Comment: For someone without known diabetes, a hemoglobin A1c value between 5.7% and 6.4% is consistent with prediabetes and should be confirmed with a follow-up test. For someone with known diabetes, a value <7% indicates that their diabetes is well controlled. A1c targets should be individualized based on duration of diabetes, age, comorbid conditions, and other considerations. This assay result is consistent with an increased risk of diabetes. Currently, no consensus exists regarding use of hemoglobin A1c for diagnosis of diabetes for children. Performed By: #### 4 96, 69316 #### [facility] [place] [address] [place]: Francesco Jacobo MD ALBUMIN, RANDOM URINE W/CREA TININEon 11-26-2024 ALBUMIN, URINE 0.4 mg/dL Normal See Note: [facility] Comment on above: Result Comment: Refe rence Range: Reference Range Not established Performed By: #### 9 05, 496, 90652, 6399, 7600, 6517 #### [facility] [address], [address] [place] [address] [place]: Francesco Jacobo MD ALBUMIN/CREATININE RATIO, RANDOM URINE 4 mg/g creat Normal <30 [facility] Comment on above: Result Comment: The ADA defines abnormalities in albumin excretion as follows: Albuminuria Category Result (mg/g creatinine) Normal to Mildly increased <30 Moderately increased 30-299 Severely increased > OR = 300 The ADA recommends that at least two of three specimens collected within a 3-6 month period be abnormal before considering a patient to be within a diagnostic category. Performed By: #### 9 05, 496, 59763, 6399, 7600, 6517 #### [facility] [address], [address] [place] [address] [place]: Francesco Jacobo MD Creatinine (U) [Mass/Vol] 110 mg/dL Normal 20-320 [facility] Comment on above: Performed By: #### 9 05, 496, 74642, 6399, 7600, 6517 #### [facility] [place] [address] [place]: Francesco Jacobo MD CBC (INCLUDES DIFF/PLT)on Basophils (Bld) [#/Vol] 0.068 10*3/uL Normal 0-200 [facility] Comment on above: Performed By: #### 9 05, 496, 71833, 6399, 7600, 6517 #### [facility] of [address], [address] [place] [address] [place]: Francesco Jacobo MD Basophils/100 WBC (Bld) 1.0 % Normal [facility] Comment on above: Performed By: #### 9 05, 496, 69981, 6399, 7600, 6517 #### [facility] [place] [address] [place]: Francesco Jacobo MD Eosinophils (Bld) [#/Vol] 0.218 10*3/uL Normal 15-500 [facility] Comment on above: Performed By: #### 9 05, 496, 00134, 6399, 7600, 6517 #### [facility] [place] [address] [place]: Francesco Jacobo MD Eosinophils/100 WBC (Bld) 3.2 % Normal [facility] Comment on above: Performed By: #### 9 05, 496, 47475, 6399, 7600, 6517 #### [facility] [place] [address] [place]: Francesco Jacobo MD Erythrocyte distribution width (RBC) [Ratio] 13.1 % Normal 11.0-15.0 [facility] Comment on above: Performed By: #### 9 05, 496, 89101, 6399, 7600, 6517 #### [facility] [place] [address] [place]: Francesco Jacobo MD Hematocrit (Bld) [Volume fraction] 47.2 % Normal 38.5-50.0 [facility] Comment on above: Performed By: #### 9 05, 496, 75794, 6399, 7600, 6517 #### [facility] [place] [address] [place]: Francesco Jacobo MD Hemoglobin (Bld) [Mass/Vol] 15.7 g/dL Normal 13.2-17.1 [facility] Comment on above: Performed By: #### 9 05, 496, 41039, 6399, 7600, 6517 #### [facility] [place] [address] [place]: Francesco Jacobo MD Lymphocytes (Bld) [#/Vol] 2.21 10*3/uL Normal 850-3900 [facility] Comment on above: Performed By: #### 9 05, 496, 12002, 6399, 7600, 6517 #### [facility] [place] [address] [place]: Francesco Jacobo MD Lymphocytes/100 WBC (Bld) 32.5 % Normal [facility] Comment on above: Performed By: #### 9 05, 496, 14063, 6399, 7600, 6517 #### [facility] [place] [address] [place]: Francesco Jacobo MD MCH (RBC) [Entitic mass] 30.4 pg Normal 27.0-33.0 [facility] Comment on above: Performed By: #### 9 05, 496, 02082, 6399, 7600, 6517 #### [facility] [place] [address] [place]: Francesco Jacobo MD MCHC (RBC) [Mass/Vol] 33.3 g/dL Normal 32.0-36.0 [facility] Comment on above: Result Comment: For adults, a slight decrease in the calculated MCHC value (in the range of 30 to 32 g/dL) is most likely not clinically significant; however, it should be interpreted with caution in correlation with other red cell parameters and the patient's clinical condition. Performed By: #### 9 05, 496, 32581, 6399, 7600, 6517 #### [facility] [place] [address] [place]: Francesco Jacobo MD MCV (RBC) [Entitic vol] 91.3 fL Normal 80.0-100.0 [facility] Comment on above: Performed By: #### 9 05, 496, 66821, 6399, 7600, 6517 #### [facility] [place] [address] [place]: Francesco Jacobo MD Monocytes (Bld) [#/Vol] 0.578 10*3/uL Normal 200-950 [facility] Comment on above: Performed By: #### 9 05, 496, 35182, 6399, 7600, 6517 #### [facility] [place] [address] [place]: Francesco Jacobo MD Monocytes/100 WBC (Bld) 8.5 % Normal [facility] Comment on above: Performed By: #### 9 05, 496, 08833, 6399, 7600, 6517 #### [facility] [place] [address] [place]: Francesco Jacobo MD Neutrophils (Bld) [#/Vol] 3.726 10*3/uL Normal 6153-9250 [facility] Comment on above: Performed By: #### 9 05, 496, 36624, 6399, 7600, 6517 #### [facility] [place] [address] [place]: Francesco Jacobo MD Neutrophils/100 WBC (Bld) 54.8 % Normal [facility] Comment on above: Performed By: #### 9 05, 496, 39182, 6399, 7600, 6517 #### [facility] [place] [address] [place]: Francesco Jacobo MD Platelet mean volume (Bld) [Entitic vol] 10.7 fL Normal 7.5-12.5 [facility] Comment on above: Performed By: #### 9 05, 496, 29444, 6399, 7600, 6517 #### [facility] of [address], [address] [place] [address] [place]: Francesco Jacobo MD Platelets (Bld) [#/Vol] 256 10*3/uL Normal 140-400 [facility] Comment on above: Performed By: #### 9 05, 496, 14656, 6399, 7600, 6517 #### [facility] [place] [address] [place]: Francesco Jacobo MD RBC (Bld) [#/Vol] 5.17 10*6/uL Normal 4.20-5.80 [facility] Comment on above: Performed By: #### 9 05, 496, 43378, 6399, 7600, 6517 #### [facility] [place] [address] [place]: Francesco Jacobo MD WBC (Bld) [#/Vol] 6.8 10*3/uL Normal 3.8-10.8 [facility] Comment on above: Performed By: #### 9 05, 496, 92011, 6399, 7600, 6517 #### [facility] [place] [address] [place]: Francesco Jacobo MD COMPREHENSIVE METABOLIC PANE [facility] 11-26-2024 Albumin [Mass/Vol] 4.7 g/dL Normal 3.6-5.1 [facility] Comment on above: Performed By: #### 9 05, 496, 21701, 6399, 7600, 6517 #### [facility] [place] [address] [place]: Francesco Jacobo MD Albumin/Globulin [Mass ratio] 2.0 {ratio} Normal 1.0-2.5 [facility] Comment on above: Performed By: #### 9 05, 496, 38685, 6399, 7600, 6517 #### [facility] [place] [address] [place]: Francesco Jacobo MD ALP [Catalytic activity/Vol] 52 U/L Normal 36-130 [facility] Comment on above: Performed By: #### 9 05, 496, 64068, 6399, 7600, 6517 #### [facility] [place] [address] [place]: Francesco Jacobo MD ALT [Catalytic activity/Vol] 20 U/L Normal 9-46 [facility] Comment on above: Performed By: #### 9 05, 496, 51273, 6399, 7600, 6517 #### [facility] of [address], [address] [place] [address] [place]: Francesco Jacobo MD AST [Catalytic activity/Vol] 19 U/L Normal 10-40 [facility] Comment on above: Performed By: #### 9 05, 496, 78332, 6399, 7600, 6517 #### [facility] [place] [address] [place]: Francesco Jacobo MD Bilirubin [Mass/Vol] 0.4 mg/dL Normal 0.2-1.2 [facility] Comment on above: Performed By: #### 9 05, 496, 56227, 6399, 7600, 6517 #### [facility] [place] [address] [place]: Francesco Jacobo MD BUN/CREATININE RATIO SEE NOTE: Normal 6-22 [facility] Comment on above: Result Comment: Not Reported: BUN and Creatinine are within reference range. Performed By: #### 9 05, 496, 76239, 6399, 7600, 6517 #### [facility] [address] [place] [address] [place]: Francesco Jacobo MD Calcium [Mass/Vol] 9.2 mg/dL Normal 8.6-10.3 [facility] Comment on above: Performed By: #### 9 05, 496, 90708, 6399, 7600, 6517 #### [facility] [place] [address] [place]: Francesco Jacobo MD Chloride [Moles/Vol] 104 mmol/L Normal 98-110 [facility] Comment on above: Performed By: #### 9 05, 496, 39005, 6399, 7600, 6517 #### [facility] [place] [address] [place]: Francesco Jacobo MD CO2 [Moles/Vol] 24 mmol/L Normal 20-32 [facility] Comment on above: Performed By: #### 9 05, 496, 10520, 6399, 7600, 6517 #### [facility] [place] [address] [place]: Francesco Jacobo MD Creatinine [Mass/Vol] 0.89 mg/dL Normal 0.60-1.29 [facility] Comment on above: Performed By: #### 9 05, 496, 57897, 6399, 7600, 6517 #### [facility] [place] [address] [place]: Francesco Jacobo MD GFR/1.73 sq M.predicted among non-blacks MDRD (S/P/Bld) [Vol rate/Area] 108 mL/min/{1.73_m2} Normal > OR = 60 [facility] Comment on above: Performed By: #### 9 05, 496, 63883, 6399, 7600, 6517 #### [facility] [place] [address] [place]: Francesco Jacobo MD Globulin (S) [Mass/Vol] 2.3 g/dL Normal 1.9-3.7 [facility] Comment on above: Performed By: #### 9 05, 496, 00855, 6399, 7600, 6517 #### [facility] [place] [address] [place]: Francesco Jacobo MD Glucose [Mass/Vol] 100 mg/dL High 65-99 [facility] Comment on above: Result Comment: Fasting reference interval For someone without known diabetes, a glucose value between 100 and 125 mg/dL is consistent with prediabetes and should be confirmed with a follow-up test. Performed By: #### 9 05, 496, 95397, 6399, 7600, 6517 #### [facility] [place] [address] [place]: Francesco Jacobo MD Potassium [Moles/Vol] 4.2 mmol/L Normal 3.5-5.3 [facility] Comment on above: Performed By: #### 9 05, 496, 23993, 6399, 7600, 6517 #### [facility] [place] [address] [place]: Francesco Jacobo MD Protein [Mass/Vol] 7.0 g/dL Normal 6.1-8.1 [facility] Comment on above: Performed By: #### 9 05, 496, 99716, 6399, 7600, 6517 #### [facility] [place] [address] [place]: Francesco Jacobo MD Sodium [Moles/Vol] 139 mmol/L Normal 135-146 [facility] Comment on above: Performed By: #### 9 05, 496, 45368, 6399, 7600, 6517 #### [facility] [place] [address] [place]: Francesco Jacobo MD Urea nitrogen [Mass/Vol] 19 mg/dL Normal 7-25 [facility] Comment on above: Performed By: #### 9 05, 496, 38448, 6399, 7600, 6517 #### [facility] [address], [address] [place] [address] [place]: Francesco Jacobo MD HEMOGLOBIN A1con 11-26-2024 HEMOGLOBIN A1c 5.7 % of total Hgb High <5.7 [facility] Comment on above: Result Comment: For someone without known diabetes, a hemoglobin A1c value between 5.7% and 6.4% is consistent with prediabetes and should be confirmed with a follow-up test. For someone with known diabetes, a value <7% indicates that their diabetes is well controlled. A1c targets should be individualized based on duration of diabetes, age, comorbid conditions, and other considerations. This assay result is consistent with an increased risk of diabetes. Currently, no consensus exists regarding use of hemoglobin A1c for diagnosis of diabetes for children. Performed By: #### 9 05, 496, 65319, 6399, 7600, 6517 #### [facility] [place] [address] [place]: Francesco Jacobo MD LIPID PANEL, STANDARDon 11-08 Cholesterol [Mass/Vol] 228 mg/dL High <200 [facility] Comment on above: Order Comment: FASTI NG:YES FASTING: YES Performed By: #### 9 05, 496, 32746, 6399, 7600, 6517 #### [facility] [place] [address] [place]: Francesco Jacobo MD Cholesterol in HDL [Mass/Vol] 39 mg/dL Low > OR = 40 [facility] Comment on above: Order Comment: FASTI NG:YES FASTING: YES Performed By: #### 9 05, 496, 24204, 6399, 7600, 6517 #### [facility] [place] [address] [place]: Francesco Jacobo MD Cholesterol in LDL [Mass/Vol] 148 mg/dL High [facility] Comment on above: Order Comment: FASTI NG:YES FASTING: YES Result Comment: Refe rence range: <100 Desirable range <100 mg/dL for primary prevention; <70 mg/dL for patients with CHD or diabetic patients with > or = 2 CHD risk factors. LDL-C is now calculated using the Lennox calculation, which is a validated novel method providing better accuracy than the Friedewald equation in the estimation of LDL-C. Tito SS et al. VARSHA. 2013;310(19): 2544-0394 (http://[employer].PayNearMe/faq/UVE392) Performed By: #### 9 05, 496, 70574, 6399, 7600, 6517 #### [facility] [address], [address] [place] [address] [place]: Francesco Jacobo MD Cholesterol.total/C holesterol in HDL [Mass ratio] 5.8 {ratio} High <5.0 [facility] Comment on above: Order Comment: FASTI NG:YES FASTING: YES Performed By: #### 9 05, 496, 63172, 6399, 7600, 6517 #### [facility] [address], [address] [place] [address] [place]: Francesco Jacobo MD NON HDL CHOLESTEROL 189 mg/dL (calc) High <130 [facility] Comment on above: Order Comment: FASTI NG:YES FASTING: YES Result Comment: For patients with diabetes plus 1 major ASCVD risk factor, treating to a non-HDL-C goal of <100 mg/dL (LDL-C of <70 mg/dL) is considered a therapeutic option. Performed By: #### 9 05, 496, 35858, 6399, 7600, 6517 #### [facility] [address], [address] [place] [address] [place]: Francesco aJcobo MD Triglyceride [Mass/Vol] 264 mg/dL High <150 [facility] Comment on above: Order Comment: FASTI NG:YES FASTING: YES Result Comment: If a non-fasting specimen was collected, consider repeat triglyceride testing on a fasting specimen if clinically indicated. Doug nunez al. J. of Clin. Lipidol. 2015;9:129-169. Performed By: #### 9 05, 496, 77491, 6399, 7600, 6517 #### [facility] [address], [place] [address] [place]: Francesco Jacobo MD URIC ACIDon 11-26-2024 Urate [Mass/Vol] 6.3 mg/dL Normal 4.0-8.0 [facility] Comment on above: Result Comment: Ther apeutic target for gout patients: <6.0 mg/dL Performed By: #### 9 05, 496, 24988, 6399, 7600, 6517 #### [facility] [address], [address] [place] [address] [place]: Francesco Jacobo MD CREATININEon 11-17-2021 Creatinine [Mass/Vol] 0.86 mg/dL Normal 0.50 - 1.30 [facility] Comment on above: Performed By: #### C REAT #### [facility] [address] [place] [address] eGFR MALE >90 Normal >90 [facility] Comment on above: Result Comment: CALC ULATIONS OF ESTIMATED GFR ARE PERFORMED USING THE 2020 CKD-EPI STUDY REFIT EQUATION WITHOUT THE RACE VARIABLE FOR THE IDMS-TRACEABLE CREATININE METHODS. https://jasn.asnjournals.org/content//ASN.92077205 88 Performed By: #### C REAT #### [facility] [address] [place] [address] CBC-Complete Blood Cnt No Di ffon 07-02-2021 HCT Normal 40-54 [facility] Comment on above: Result Comment: Canc elled via OM: Order cancelled - Patient discharged Performed By: #### L 100.0500, L500.4050 #### [facility] [address] [place], [address] HGB Normal 13.0-16.5 [facility] Comment on above: Result Comment: Canc elled via OM: Order cancelled - Patient discharged Performed By: #### L 100.0500, L500.4050 #### [facility] [address] [place], [address] MCH Normal 27.0-32.0 [facility] Comment on above: Result Comment: Canc elled via OM: Order cancelled - Patient discharged Performed By: #### L 100.0500, L500.4050 #### [facility] [address] [place], [address] MCHC Normal 32-36 [facility] Comment on above: Result Comment: Canc elled via OM: Order cancelled - Patient discharged Performed By: #### L 100.0500, L500.4050 #### [facility] [address] [place], [address] MCV Normal 80-94 [facility] Comment on above: Result Comment: Canc elled via OM: Order cancelled - Patient discharged Performed By: #### L 100.0500, L500.4050 #### [facility] [address] [place], [address] PLT Normal 150-450 [facility] Comment on above: Result Comment: Canc elled via OM: Order cancelled - Patient discharged Performed By: #### L 100.0500, L500.4050 #### [facility] [address] [place], [address] RBC Normal 4.6-6.2 [facility] Comment on above: Result Comment: Canc elled via OM: Order cancelled - Patient discharged Performed By: #### L 100.0500, L500.4050 #### [facility] [address] [place], [address] RDW CV Normal 11.6-14.6 [facility] Comment on above: Result Comment: Canc elled via OM: Order cancelled - Patient discharged Performed By: #### L 100.0500, L500.4050 #### [facility] [address] [place], [address] RDW SD Normal 35.1-43.9 [facility] Comment on above: Result Comment: Canc elled via OM: Order cancelled - Patient discharged Performed By: #### L 100.0500, L500.4050 #### [facility] [address] [place], [address] WBC Normal 4.4-11.0 [facility] Comment on above: Result Comment: Canc elled via OM: Order cancelled - Patient discharged Performed By: #### L 100.0500, L500.4050 #### [facility] [address] [place], [address] Comprehensive Metabolic Prof ilon 07-02-2021 ALB Normal 3.2-5.0 [facility] Comment on above: Result Comment: Canc elled via OM: Order cancelled - Patient discharged Performed By: #### L 100.0500, L500.4050 #### [facility] [address] [place], [address] ALK P Normal 45-117 [facility] Comment on above: Result Comment: Canc elled via OM: Order cancelled - Patient discharged Performed By: #### L 100.0500, L500.4050 #### [facility] [address] [place], [address] ALT Normal 16-61 [facility] Comment on above: Result Comment: Canc elled via OM: Order cancelled - Patient discharged Performed By: #### L 100.0500, L500.4050 #### [facility] [address] [place], [address] AST Normal 15-37 [facility] Comment on above: Result Comment: Canc elled via OM: Order cancelled - Patient discharged Performed By: #### L 100.0500, L500.4050 #### [facility] [address] [place], [address] BUN Normal 7-18 [facility] Comment on above: Result Comment: Canc elled via OM: Order cancelled - Patient discharged Performed By: #### L 100.0500, L500.4050 #### [facility] [address] [place], [address] BUN/CRE Normal 10-20 [facility] Comment on above: Result Comment: Canc elled via OM: Order cancelled - Patient discharged Performed By: #### L 100.0500, L500.4050 #### [facility] [address] [place], [address] CA,Total Normal 8.5-10.1 [facility] Comment on above: Result Comment: Canc elled via OM: Order cancelled - Patient discharged Performed By: #### L 100.0500, L500.4050 #### [facility] [address] [place], [address] CL Normal 98-107 [facility] Comment on above: Result Comment: Canc elled via OM: Order cancelled - Patient discharged Performed By: #### L 100.0500, L500.4050 #### [facility] [address] [place], [address] CO2 Normal 21.0-32.0 [facility] Comment on above: Result Comment: Canc elled via OM: Order cancelled - Patient discharged Performed By: #### L 100.0500, L500.4050 #### [facility] [address] [place], [address] CREAT,SERUM Normal 0.70-1.30 [facility] Comment on above: Result Comment: Canc elled via OM: Order cancelled - Patient discharged Performed By: #### L 100.0500, L500.4050 #### [facility] [address] [place], [address] EST GFR Normal >60 [facility] Comment on above: Result Comment: Canc elled via OM: Order cancelled - Patient discharged Performed By: #### L 100.0500, L500.4050 #### [facility] [address] [place], [address] EST GFR - AA Normal >60 [facility] Comment on above: Result Comment: Canc elled via OM: Order cancelled - Patient discharged Performed By: #### L 100.0500, L500.4050 #### [facility] [address] [place], [address] GAP Normal 5-15 [facility] Comment on above: Result Comment: Canc elled via OM: Order cancelled - Patient discharged Performed By: #### L 100.0500, L500.4050 #### [facility] [address] [place], [address] GLU Normal 74-106 [facility] Comment on above: Result Comment: Canc elled via OM: Order cancelled - Patient discharged Performed By: #### L 100.0500, L500.4050 #### [facility] [address] [place], [address] Potassium Normal 3.5-5.1 [facility] Comment on above: Result Comment: Canc elled via OM: Order cancelled - Patient discharged Performed By: #### L 100.0500, L500.4050 #### [facility] [address] [place], [address] T BILI Normal 0.20-1.00 [facility] Comment on above: Result Comment: Canc elled via OM: Order cancelled - Patient discharged Performed By: #### L 100.0500, L500.4050 #### [facility] [address] [place], [address] T PROT Normal 6.4-8.2 [facility] Comment on above: Result Comment: Canc elled via OM: Order cancelled - Patient discharged Performed By: #### L 100.0500, L500.4050 #### [facility] [address] [place], [address] Comprehensive Metabolic Profil Normal 136-145 [facility] Comment on above: Result Comment: Canc elled via OM: Order cancelled - Patient discharged Performed By: #### L 100.0500, L500.4050 #### [facility] [address] [place], [address] CBC-Complete Blood Cnt No Di ffon 07-01-2021 HCT Normal 40-54 [facility] Comment on above: Result Comment: Canc elled via OM: Order cancelled - Patient discharged Performed By: #### L 100.0500, L500.4050 #### [facility] [address] [place], [address] HGB Normal 13.0-16.5 [facility] Comment on above: Result Comment: Canc elled via OM: Order cancelled - Patient discharged Performed By: #### L 100.0500, L500.4050 #### [facility] [address] [place], [address] MCH Normal 27.0-32.0 [facility] Comment on above: Result Comment: Canc elled via OM: Order cancelled - Patient discharged Performed By: #### L 100.0500, L500.4050 #### [facility] [address] [place], [address] MCHC Normal 32-36 [facility] Comment on above: Result Comment: Canc elled via OM: Order cancelled - Patient discharged Performed By: #### L 100.0500, L500.4050 #### [facility] [address] [place], [address] MCV Normal 80-94 [facility] Comment on above: Result Comment: Canc elled via OM: Order cancelled - Patient discharged Performed By: #### L 100.0500, L500.4050 #### [facility] [address] [place], [address] PLT Normal 150-450 [facility] Comment on above: Result Comment: Canc elled via OM: Order cancelled - Patient discharged Performed By: #### L 100.0500, L500.4050 #### [facility] [address] [place], [address] RBC Normal 4.6-6.2 [facility] Comment on above: Result Comment: Canc elled via OM: Order cancelled - Patient discharged Performed By: #### L 100.0500, L500.4050 #### [facility] [address] [place], [address] RDW CV Normal 11.6-14.6 [facility] Comment on above: Result Comment: Canc elled via OM: Order cancelled - Patient discharged Performed By: #### L 100.0500, L500.4050 #### [facility] [address] [place], [address] RDW SD Normal 35.1-43.9 [facility] Comment on above: Result Comment: Canc elled via OM: Order cancelled - Patient discharged Performed By: #### L 100.0500, L500.4050 #### [facility] [address] [place], [address] WBC Normal 4.4-11.0 [facility] Comment on above: Result Comment: Canc elled via OM: Order cancelled - Patient discharged Performed By: #### L 100.0500, L500.4050 #### [facility] [address] [place], [address] Comprehensive Metabolic Prof ilon 07-01-2021 ALB Normal 3.2-5.0 [facility] Comment on above: Result Comment: Canc elled via OM: Order cancelled - Patient discharged Performed By: #### L 100.0500, L500.4050 #### [facility] [address] [place], [address] ALK P Normal 45-117 [facility] Comment on above: Result Comment: Canc elled via OM: Order cancelled - Patient discharged Performed By: #### L 100.0500, L500.4050 #### [facility] [address] [place], [address] ALT Normal 16-61 [facility] Comment on above: Result Comment: Canc elled via OM: Order cancelled - Patient discharged Performed By: #### L 100.0500, L500.4050 #### [facility] [address] [place], [address] AST Normal 15-37 [facility] Comment on above: Result Comment: Canc elled via OM: Order cancelled - Patient discharged Performed By: #### L 100.0500, L500.4050 #### [facility] [address] [place], [address] BUN Normal 7-18 [facility] Comment on above: Result Comment: Canc elled via OM: Order cancelled - Patient discharged Performed By: #### L 100.0500, L500.4050 #### [facility] [address] [place], [address] BUN/CRE Normal 10-20 [facility] Comment on above: Result Comment: Canc elled via OM: Order cancelled - Patient discharged Performed By: #### L 100.0500, L500.4050 #### [facility] [address] [place], [address] CA,Total Normal 8.5-10.1 [facility] Comment on above: Result Comment: Canc elled via OM: Order cancelled - Patient discharged Performed By: #### L 100.0500, L500.4050 #### [facility] [address] [place], [address] CL Normal 98-107 [facility] Comment on above: Result Comment: Canc elled via OM: Order cancelled - Patient discharged Performed By: #### L 100.0500, L500.4050 #### [facility] [address] [place], [address] CO2 Normal 21.0-32.0 [facility] Comment on above: Result Comment: Canc elled via OM: Order cancelled - Patient discharged Performed By: #### L 100.0500, L500.4050 #### [facility] [address] [place], [address] CREAT,SERUM Normal 0.70-1.30 [facility] Comment on above: Result Comment: Canc elled via OM: Order cancelled - Patient discharged Performed By: #### L 100.0500, L500.4050 #### [facility] [address] [place], [address] EST GFR Normal >60 [facility] Comment on above: Result Comment: Canc elled via OM: Order cancelled - Patient discharged Performed By: #### L 100.0500, L500.4050 #### [facility] [address] [place], [address] EST GFR - AA Normal >60 [facility] Comment on above: Result Comment: Canc elled via OM: Order cancelled - Patient discharged Performed By: #### L 100.0500, L500.4050 #### [facility] [address] [place], [address] GAP Normal 5-15 [facility] Comment on above: Result Comment: Canc elled via OM: Order cancelled - Patient discharged Performed By: #### L 100.0500, L500.4050 #### [facility] [address] [place], [address] GLU Normal 74-106 [facility] Comment on above: Result Comment: Canc elled via OM: Order cancelled - Patient discharged Performed By: #### L 100.0500, L500.4050 #### [facility] [address] [place], [address] Potassium Normal 3.5-5.1 [facility] Comment on above: Result Comment: Canc elled via OM: Order cancelled - Patient discharged Performed By: #### L 100.0500, L500.4050 #### [facility] [address] [place], [address] T BILI Normal 0.20-1.00 [facility] Comment on above: Result Comment: Canc elled via OM: Order cancelled - Patient discharged Performed By: #### L 100.0500, L500.4050 #### [facility] [address] [place], [address] T PROT Normal 6.4-8.2 [facility] Comment on above: Result Comment: Canc elled via OM: Order cancelled - Patient discharged Performed By: #### L 100.0500, L500.4050 #### [facility] [address] [place], [address] Comprehensive Metabolic Profil Normal 136-145 [facility] Comment on above: Result Comment: Canc elled via OM: Order cancelled - Patient discharged Performed By: #### L 100.0500, L500.4050 #### [facility] [address] [place], [address] CBC-Complete Blood Cnt No Di ffon 06-30-2021 HCT Normal 40-54 [facility] Comment on above: Result Comment: Canc elled via OM: Order cancelled - Patient discharged Performed By: #### L 100.0500, L500.4050 #### [facility] [address] [place], [address] HGB Normal 13.0-16.5 [facility] Comment on above: Result Comment: Canc elled via OM: Order cancelled - Patient discharged Performed By: #### L 100.0500, L500.4050 #### [facility] [address] [place], [address] MCH Normal 27.0-32.0 [facility] Comment on above: Result Comment: Canc elled via OM: Order cancelled - Patient discharged Performed By: #### L 100.0500, L500.4050 #### [facility] [address] [place], [address] MCHC Normal 32-36 [facility] Comment on above: Result Comment: Canc elled via OM: Order cancelled - Patient discharged Performed By: #### L 100.0500, L500.4050 #### [facility] [address] [place], [address] MCV Normal 80-94 [facility] Comment on above: Result Comment: Canc elled via OM: Order cancelled - Patient discharged Performed By: #### L 100.0500, L500.4050 #### [facility] [address] [place], [address] PLT Normal 150-450 [facility] Comment on above: Result Comment: Canc elled via OM: Order cancelled - Patient discharged Performed By: #### L 100.0500, L500.4050 #### [facility] [address] [place], [address] RBC Normal 4.6-6.2 [facility] Comment on above: Result Comment: Canc elled via OM: Order cancelled - Patient discharged Performed By: #### L 100.0500, L500.4050 #### [facility] [address] [place], [address] RDW CV Normal 11.6-14.6 [facility] Comment on above: Result Comment: Canc elled via OM: Order cancelled - Patient discharged Performed By: #### L 100.0500, L500.4050 #### [facility] [address] [place], [address] RDW SD Normal 35.1-43.9 [facility] Comment on above: Result Comment: Canc elled via OM: Order cancelled - Patient discharged Performed By: #### L 100.0500, L500.4050 #### [facility] [address] [place], [address] WBC Normal 4.4-11.0 [facility] Comment on above: Result Comment: Canc elled via OM: Order cancelled - Patient discharged Performed By: #### L 100.0500, L500.4050 #### [facility] [address] [place], [address] Comprehensive Metabolic Prof ilon 06-30-2021 ALB Normal 3.2-5.0 [facility] Comment on above: Result Comment: Canc elled via OM: Order cancelled - Patient discharged Performed By: #### L 100.0500, L500.4050 #### [facility] [address] [place], [address] ALK P Normal 45-117 [facility] Comment on above: Result Comment: Canc elled via OM: Order cancelled - Patient discharged Performed By: #### L 100.0500, L500.4050 #### [facility] [address] [place], [address] ALT Normal 16-61 [facility] Comment on above: Result Comment: Canc elled via OM: Order cancelled - Patient discharged Performed By: #### L 100.0500, L500.4050 #### [facility] [address] [place], [address] AST Normal 15-37 [facility] Comment on above: Result Comment: Canc elled via OM: Order cancelled - Patient discharged Performed By: #### L 100.0500, L500.4050 #### [facility] [address] [place], [address] BUN Normal 7-18 [facility] Comment on above: Result Comment: Canc elled via OM: Order cancelled - Patient discharged Performed By: #### L 100.0500, L500.4050 #### [facility] [address] [place], [address] BUN/CRE Normal 10-20 [facility] Comment on above: Result Comment: Canc elled via OM: Order cancelled - Patient discharged Performed By: #### L 100.0500, L500.4050 #### [facility] [address] [place], [address] CA,Total Normal 8.5-10.1 [facility] Comment on above: Result Comment: Canc elled via OM: Order cancelled - Patient discharged Performed By: #### L 100.0500, L500.4050 #### [facility] [address] [place], [address] CL Normal 98-107 [facility] Comment on above: Result Comment: Canc elled via OM: Order cancelled - Patient discharged Performed By: #### L 100.0500, L500.4050 #### [facility] [address] [place], [address] CO2 Normal 21.0-32.0 [facility] Comment on above: Result Comment: Canc elled via OM: Order cancelled - Patient discharged Performed By: #### L 100.0500, L500.4050 #### [facility] [address] [place], [address] CREAT,SERUM Normal 0.70-1.30 [facility] Comment on above: Result Comment: Canc elled via OM: Order cancelled - Patient discharged Performed By: #### L 100.0500, L500.4050 #### [facility] [address] [place], [address] EST GFR Normal >60 [facility] Comment on above: Result Comment: Canc elled via OM: Order cancelled - Patient discharged Performed By: #### L 100.0500, L500.4050 #### [facility] [address] [place], [address] EST GFR - AA Normal >60 [facility] Comment on above: Result Comment: Canc elled via OM: Order cancelled - Patient discharged Performed By: #### L 100.0500, L500.4050 #### [facility] [address] [place], [address] GAP Normal 5-15 [facility] Comment on above: Result Comment: Canc elled via OM: Order cancelled - Patient discharged Performed By: #### L 100.0500, L500.4050 #### [facility] [address] [place], [address] GLU Normal 74-106 [facility] Comment on above: Result Comment: Canc elled via OM: Order cancelled - Patient discharged Performed By: #### L 100.0500, L500.4050 #### [facility] [address] [place], [address] Potassium Normal 3.5-5.1 [facility] Comment on above: Result Comment: Canc elled via OM: Order cancelled - Patient discharged Performed By: #### L 100.0500, L500.4050 #### [facility] [address] [place], [address] T BILI Normal 0.20-1.00 [facility] Comment on above: Result Comment: Canc elled via OM: Order cancelled - Patient discharged Performed By: #### L 100.0500, L500.4050 #### [facility] [address] [place], [address] T PROT Normal 6.4-8.2 [facility] Comment on above: Result Comment: Canc elled via OM: Order cancelled - Patient discharged Performed By: #### L 100.0500, L500.4050 #### [facility] [address] [place], [address] Comprehensive Metabolic Profil Normal 136-145 [facility] Comment on above: Result Comment: Canc elled via OM: Order cancelled - Patient discharged Performed By: #### L 100.0500, L500.4050 #### [facility] [address] [place], [address] CBC-Complete Blood Cnt No Di ffon 06-29-2021 Erythrocyte distribution width (RBC) [Ratio] 12.9 % Normal 11.6-14.6 [facility] Comment on above: Performed By: #### L 100.0500, L500.4050 #### [facility] [address] [place], [address] Hematocrit (Bld) [Volume fraction] 47.5 % Normal 40-54 [facility] Comment on above: Performed By: #### L 100.0500, L500.4050 #### [facility] [address] [place], [address] Hemoglobin (Bld) [Mass/Vol] 15.5 g/dL Normal 13.0-16.5 [facility] Comment on above: Performed By: #### L 100.0500, L500.4050 #### [facility] [address] [place], [address] MCH (RBC) [Entitic mass] 30.3 pg Normal 27.0-32.0 [facility] Comment on above: Performed By: #### L 100.0500, L500.4050 #### [facility] [address] [place], [address] MCHC (RBC) [Mass/Vol] 32.6 g/dL Normal 32-36 [facility] Comment on above: Performed By: #### L 100.0500, L500.4050 #### [facility] [address] [place], [address] MCV (RBC) [Entitic vol] 92.8 fL Normal 80-94 [facility] Comment on above: Performed By: #### L 100.0500, L500.4050 #### [facility] [address] [place], [address] Platelet mean volume (Bld) [Entitic vol] 10.2 fL Normal 6.2-12.0 [facility] Comment on above: Performed By: #### L 100.0500, L500.4050 #### [facility] [address] [place], [address] Platelets (Bld) [#/Vol] 448 10*3/uL Normal 150-450 [facility] Comment on above: Performed By: #### L 100.0500, L500.4050 #### [facility] [address] [place], [address] RBC (Bld) [#/Vol] 5.12 10*6/uL Normal 4.6-6.2 [facility] Comment on above: Performed By: #### L 100.0500, L500.4050 #### [facility] [address] [place], [address] RDW SD 43.8 fl Normal 35.1-43.9 [facility] Comment on above: Performed By: #### L 100.0500, L500.4050 #### [facility] [address] [place], [address] WBC (Bld) [#/Vol] 12.0 10*3/uL High 4.4-11.0 [facility] Comment on above: Performed By: #### L 100.0500, L500.4050 #### [facility] [address] [place], [address] Comprehensive Metabolic Prof ilon 06-29-2021 Albumin [Mass/Vol] 2.9 g/dL Low 3.2-5.[address] [facility] Comment on above: Performed By: #### L 100.0500, L500.4050 #### [facility] [address] [place], [address] Albumin/Globulin [Mass ratio] 0.7 {ratio} Low 0.9-2.4 [facility] Comment on above: Performed By: #### L 100.0500, L500.4050 #### [facility] [address] [place], [address] ALK P 52 U/L Normal 45-117 [facility] Comment on above: Performed By: #### L 100.0500, L500.4050 #### [facility] [address] [place], [address] ALT [Catalytic activity/Vol] 91 U/L High 16-61 [facility] Comment on above: Performed By: #### L 100.0500, L500.4050 #### [facility] [address] [place], [address] AST [Catalytic activity/Vol] 33 U/L Normal 15-37 [facility] Comment on above: Performed By: #### L 100.0500, L500.4050 #### [facility] [address] [place], [address] Bilirubin [Mass/Vol] 0.40 mg/dL Normal 0.20-1.00 [facility] Comment on above: Result Comment: For patients on eltrombopag therapy, use of Dimension Raccoon TBIL is not recommended. Performed By: #### L 100.0500, L500.4050 #### [facility] [address] [place], [address] BUN/CRE 19.6 RATIO Normal 10-20 [facility] Comment on above: Performed By: #### L 100.0500, L500.4050 #### [facility] [address] [place], [address] CA,Total 8.9 mg/dL Normal 8.5-10.1 [facility] Comment on above: Performed By: #### L 100.0500, L500.4050 #### [facility] [address] [place], [address] Chloride [Moles/Vol] 102 mmol/L Normal 98-107 [facility] Comment on above: Performed By: #### L 100.0500, L500.4050 #### [facility] [address] [place], [address] CO2 [Moles/Vol] 31.0 mmol/L Normal 21.0-32.0 [facility] Comment on above: Performed By: #### L 100.0500, L500.4050 #### [facility] [address] [place], [address] Creatinine [Mass/Vol] 0.82 mg/dL Normal 0.70-1.30 [facility] Comment on above: Result Comment: The validity of the calculated GFR GFRAA in patients over 70 years has not been determined. Clinical correlation is essential. Performed By: #### L 100.0500, L500.4050 #### [facility] [address] [place], [address] ECRCL 123.64 ml/min Normal [facility] Comment on above: Performed By: #### L 100.0500, L500.4050 #### [facility] [address] [place], [address] EST GFR - AA 134 mL/min Normal >60 [facility] Comment on above: Result Comment: Afri can Citizen Of [place] GFR Calc Performed By: #### L 100.0500, L500.4050 #### [facility] [address] [place], [address] GAP 7 Normal 5-15 [facility] Comment on above: Performed By: #### L 100.0500, L500.4050 #### [facility] [address] [place], [address] GFR/1.73 sq M.predicted among non-blacks MDRD (S/P/Bld) [Vol rate/Area] 110 mL/min/{1.73_m2} Normal >60 [facility] Comment on above: Result Comment: Non- GFR Calc Performed By: #### L 100.0500, L500.4050 #### [facility] [address] [place], [address] Globulin (S) [Mass/Vol] 4.1 g/dL Normal 2.2-4.2 [facility] Comment on above: Performed By: #### L 100.0500, L500.4050 #### [facility] [address] [place], [address] Glucose [Mass/Vol] 104 mg/dL Normal 74-[address] [facility] Comment on above: Result Comment: Fast ing Glucose result from 100 to 125 mg/dL suggests IMPAIRED HOMEOSTASIS per A.D.A. criteria. Please note revised GLUCOSE reference range effective 2017. Performed By: #### L 100.0500, L500.4050 #### [facility] [address] [place], [address] Potassium [Moles/Vol] 4.2 mmol/L Normal 3.5-5.1 [facility] Comment on above: Performed By: #### L 100.0500, L500.4050 #### [facility] [address] [place], [address] Sodium [Moles/Vol] 140 mmol/L Normal 136-[address] [facility] Comment on above: Performed By: #### L 100.0500, L500.4050 #### [facility] [address] [place], [address] T PROT 7.0 g/dL Normal 6.4-8.2 [facility] Comment on above: Performed By: #### L 100.0500, L500.4050 #### [facility] [address] [place], [address] Urea nitrogen [Mass/Vol] 16 mg/dL Normal 7-18 [facility] Comment on above: Performed By: #### L 100.0500, L500.4050 #### [facility] [address] [place], [address] CBC-Complete Blood Cnt No Di ffon 06-28-2021 Erythrocyte distribution width (RBC) [Ratio] 13.1 % Normal 11.6-14.6 [facility] Comment on above: Performed By: #### L 500.4050, L100.0500 #### [facility] [address] [place], [address] Hematocrit (Bld) [Volume fraction] 45.2 % Normal 40-54 [facility] Comment on above: Performed By: #### L 500.4050, L100.0500 #### [facility] [address] [place], [address] Hemoglobin (Bld) [Mass/Vol] 15.0 g/dL Normal 13.0-16.5 [facility] Comment on above: Performed By: #### L 500.4050, L100.0500 #### [facility] [address] [place], [address] MCH (RBC) [Entitic mass] 30.5 pg Normal 27.0-32.0 [facility] Comment on above: Performed By: #### L 500.4050, L100.0500 #### [facility] [address] [place], [address] MCHC (RBC) [Mass/Vol] 33.2 g/dL Normal 32-36 [facility] Comment on above: Performed By: #### L 500.4050, L100.0500 #### [facility] [address] [place], [address] MCV (RBC) [Entitic vol] 91.9 fL Normal 80-94 [facility] Comment on above: Performed By: #### L 500.4050, L100.0500 #### [facility] [address] [place], [address] Platelet mean volume (Bld) [Entitic vol] 10.0 fL Normal 6.2-12.0 [facility] Comment on above: Performed By: #### L 500.4050, L100.0500 #### [facility] [address] [place], [address] Platelets (Bld) [#/Vol] 412 10*3/uL Normal 150-450 [facility] Comment on above: Performed By: #### L 500.4050, L100.0500 #### [facility] [address] [place], [address] RBC (Bld) [#/Vol] 4.92 10*6/uL Normal 4.6-6.2 [facility] Comment on above: Performed By: #### L 500.4050, L100.0500 #### [facility] [address] [place], [address] RDW SD 44.3 fl High 35.1-43.9 [facility] Comment on above: Performed By: #### L 500.4050, L100.0500 #### [facility] [address] [place], [address] WBC (Bld) [#/Vol] 11.9 10*3/uL High 4.4-11.0 [facility] Comment on above: Performed By: #### L 500.4050, L100.0500 #### [facility] [address] [place], [address] Comprehensive Metabolic Prof ilon 06-28-2021 Albumin [Mass/Vol] 2.7 g/dL Low 3.2-5.[address] [facility] Comment on above: Performed By: #### L 500.4050, L100.0500 #### [facility] [address] [place], [address] Albumin/Globulin [Mass ratio] 0.6 {ratio} Low 0.9-2.4 [facility] Comment on above: Performed By: #### L 500.4050, L100.0500 #### [facility] [address] [place], [address] ALK P 54 U/L Normal 45-117 [facility] Comment on above: Performed By: #### L 500.4050, L100.0500 #### [facility] [address] [place], [address] ALT [Catalytic activity/Vol] 83 U/L High 16-61 [facility] Comment on above: Performed By: #### L 500.4050, L100.0500 #### [facility] [address] [place], [address] AST [Catalytic activity/Vol] 40 U/L High 15-37 [facility] Comment on above: Performed By: #### L 500.4050, L100.0500 #### [facility] [address] [place], [address] Bilirubin [Mass/Vol] 0.50 mg/dL Normal 0.20-1.00 [facility] Comment on above: Result Comment: For patients on eltrombopag therapy, use of Dimension [place] TBIL is not recommended. Performed By: #### L 500.4050, L100.0500 #### [facility] [address] [place], [address] BUN/CRE 21.6 RATIO High 10-20 [facility] Comment on above: Performed By: #### L 500.4050, L100.0500 #### [facility] [address] [place], [address] CA,Total 8.7 mg/dL Normal 8.5-10.1 [facility] Comment on above: Performed By: #### L 500.4050, L100.0500 #### [facility] [address] [place], [address] Chloride [Moles/Vol] 106 mmol/L Normal 98-107 [facility] Comment on above: Performed By: #### L 500.4050, L100.0500 #### [facility] [address] [place], [address] CO2 [Moles/Vol] 26.0 mmol/L Normal 21.0-32.0 [facility] Comment on above: Performed By: #### L 500.4050, L100.0500 #### [facility] [address] [place], [address] Creatinine [Mass/Vol] 0.69 mg/dL Low 0.70-1.30 [facility] Comment on above: Result Comment: The validity of the calculated GFR GFRAA in patients over 70 years has not been determined. Clinical correlation is essential. Performed By: #### L 500.4050, L100.0500 #### [facility] [address] [place], [address] ECRCL 146.94 ml/min Normal [facility] Comment on above: Performed By: #### L 500.4050, L100.0500 #### [facility] [address] [place], [address] EST GFR - AA 162 mL/min Normal >60 [facility] Comment on above: Result Comment: Afri can Citizen [place] GFR Calc Performed By: #### L 500.4050, L100.0500 #### [facility] [address] [place], [address] GAP 6 Normal 5-15 [facility] Comment on above: Performed By: #### L 500.4050, L100.0500 #### [facility] [address] [place], [address] GFR/1.73 sq M.predicted among non-blacks MDRD (S/P/Bld) [Vol rate/Area] 134 mL/min/{1.73_m2} Normal >60 [facility] Comment on above: Result Comment: Non- GFR Calc Performed By: #### L 500.4050, L100.0500 #### [facility] [address] [place], [address] Globulin (S) [Mass/Vol] 4.3 g/dL High 2.2-4.2 [facility] Comment on above: Performed By: #### L 500.4050, L100.0500 #### [facility] [address] [place], [address] Glucose [Mass/Vol] 122 mg/dL High 74-[address] [facility] Comment on above: Result Comment: Fast ing Glucose result from 100 to 125 mg/dL suggests IMPAIRED HOMEOSTASIS per A.D.A. criteria. Please note revised GLUCOSE reference range effective 2017. Performed By: #### L 500.4050, L100.0500 #### [facility] [address] [place], [address] Potassium [Moles/Vol] 4.4 mmol/L Normal 3.5-5.1 [facility] Comment on above: Performed By: #### L 500.4050, L100.0500 #### [facility] [address] [place], [address] Sodium [Moles/Vol] 138 mmol/L Normal 136-[address] [facility] Comment on above: Performed By: #### L 500.4050, L100.0500 #### [facility] [address] [place], [address] T PROT 7.0 g/dL Normal 6.4-8.2 [facility] Comment on above: Performed By: #### L 500.4050, L100.0500 #### [facility] [address] [place], [address] Urea nitrogen [Mass/Vol] 15 mg/dL Normal 7-18 [facility] Comment on above: Performed By: #### L 500.4050, L100.0500 #### [facility] [address] [place], [address] Consultation - Infectious Dx on 06-28-2021 Consultation - Infectious Dx [facility] Medical Records Department [address] [place] [address] Consultation - Infectious Dx 06/28/21 1011 MR#: [id number] Acct: [id number] Name: MAHESH WEBER Wero Rep #: [id number] : 1980 40 From: Ritchie Londno MD PCP: Dr. Reinier Mclean MD Status:ADM IN Location: [address] Assessment Plan Assessment/Plan (1) Acute respiratory failure with hypoxia: (2) COVID-19: PLAN: Sx started 06/18. Isolate until 07/08. Unvaccinated, recommended vaccine in next 1-2 months. On dex. Completed remdesivir. O2 improved this Am from 15L down to 10L, so at this point would not start baricitinib. If worsens again, would check d-dimer/BNP/procalci tonin/sputum cx, consider CTA of chest. Will follow, thank you HPI Consult Data Date of Consult: 06/28/21 HPI Narrative HPI Narrative: MAHESH WEBER, is a 40 M who presented 06/23 with sx since 06/18. C/o headache, fever, aches, n/v/d, mild cough, fatigue, change in taste/smell. Unvaccinated. 2 others at home sick with covid, recovered. Came to ED, admitted with hypoxia, started on dex and remdesivir. O2 worsened yesterday, feeling better today. Full ROS performed and neg except as noted above. PFSH Medical History no medical history Home Medications dexamethasone [Decadron] 6 mg PO DAILY 7 Days #7 tab 06/23/21 [Rx Last Taken Unknown] ondansetron 4 mg PO Q8H PRN 4 Days tab 06/23/21 [Rx Last Taken Unknown] Allergy/AdvReac Type Severity Reaction Status Date / Time No Known Allergies Allergy Verified 04/28/20 17:43 Family History (Updated 06/23/21 @ 13:41 by Cathy Nair NP-C) Father Myocardial infarction Surgical History History of tonsillectomy Surgical History no surgical history Social History (Updated 06/23/21 @ 13:41 by Cathy Nair NP-C) Smoking Status: Never smoker alcohol intake: never substance use type: does not use Physical Exam Const alert, oriented x3 and no apparent distress General Appearance: cooperative Exam Limitations: no limitations HEENT normocephalic and head/scalp atraumatic Eyes PERRL and EOMs intact bilaterally Neck supple and No nodes Resp Auscultation: diminished lung sounds Cardio regular rate and regular rhythm GI normal to inspection, nondistended, normoactive bowel sounds Extremity no clubbing, cyanosis or edema Skin no rashes or lesions noted Neuro CN's II-XII intact bilaterally Medical Records Data Medical Nutrition Assessment Dietitian: Malnutrition Criteria Met Start: 06/23/21 15:02 Freq: Status: Active Protocol: Document 06/23/21 15:02 (Rec: 06/23/21 15:02 [id number]) Nutrition Malnutrition Evidence of Malnutrition Exists Yes Malnutrition (severe): Acute Illness/Injury Evidenced By Suboptimal Energy Intake ( Severe),Weight Loss (Severe) Clinical Problem Acute Disease or Injury Related Malnutrition Etiology severe, acute malnutrition r/t inadequate energy intake d/t COVID-19 Signs/Symptoms as evidenced by unintentional wt loss of 17#/5.3% x 6 days, estimated PO intake meeting < 50% of estimated nutritional needs >5 days Status Active Problem Recommendation Dietitian Recommendations/Gomes ges continue regular diet; will add [place] Instant Breakfast w/ breakfast for additional calories/protein if consumed. Lab / Micro Data Result Diagrams: 06/28/21 06:22 06/28/21 06:22 Labs: Laboratory Results - last 24 hr 06/26/21 06:20: Diff Path Review Reviewed 06/28/21 06:22: WBC 11.9 H, RBC 4.92, Hgb 15.0, Hct 45.2, MCV 91.9, MCH 30.5, MCHC 33.2, RDW Std Deviation 44.3 H, RDW Coeff of [place] 13.1, Plt Count 412, MPV 10.0 06/28/21 06:22: Sodium 138, Potassium 4.4, Chloride 106, Carbon Dioxide 26.0, Anion Gap 6, BUN 15, Creatinine 0.69 L, Estim Creat Clear Calc 146.94, Est GFR (MDRD) Af Amer 162, Est GFR (MDRD) Non-Af 134, BUN/Creatinine Ratio 21.6 H, Glucose 122 H, Calcium 8.7, Total Bilirubin 0.50, AST 40 H, ALT 83 H, Alkaline Phosphatase 54, Total Protein 7.0, Albumin 2.7 L, Globulin 4.3 H, Albumin/Globulin Ratio 0.6 L 06/28/21 1015 Cosigner Signature (if applicable): CC: TENNIS PLAYERGama Rosales; Dr. Reinier Mclean MD; Dr. Ritchie London MD Signed Normal [facility] CBC W/Diff, Automatedon 06-10 PATH REV Reviewed Normal [facility] Comment on above: Performed By: #### L 100.0500, L500.4050 #### [facility] [address] [place], [place], [address] Absolute Lymph 1.87 X10 3/uL Normal 0.83-4.51 [facility] Comment on above: Performed By: #### L 100.0500, L500.4050 #### [facility] [address] [place], [address] Absolute Neut 8.1 X10 3/uL High 2.0-7.7 [facility] Comment on above: Performed By: #### L 100.0500, L500.4050 #### [facility] [address] [place], [address] Basophils/100 WBC (Bld) 0.5 % Normal 0-1 [facility] Comment on above: Performed By: #### L 100.0500, L500.4050 #### [facility] [address] [place], [address] Eosinophils/100 WBC (Bld) 0.0 % Normal 0-5 [facility] Comment on above: Performed By: #### L 100.0500, L500.4050 #### [facility] [address] [place], [address] Erythrocyte distribution width (RBC) [Ratio] 12.9 % Normal 11.6-14.6 [facility] Comment on above: Performed By: #### L 100.0500, L500.4050 #### [facility] [address] [place], [address] Hematocrit (Bld) [Volume fraction] 46.0 % Normal 40-54 [facility] Comment on above: Performed By: #### L 100.0500, L500.4050 #### [facility] [address] [place], [address] Hemoglobin (Bld) [Mass/Vol] 15.3 g/dL Normal 13.0-16.5 [facility] Comment on above: Performed By: #### L 100.0500, L500.4050 #### [facility] [address] [place], [address] IG% 4.700 High 0.0-0.9 [facility] Comment on above: Result Comment: IG% - Immature Granulocytes (promyelocytes, myelocytes and metamyelocytes) > 1% indicates that a LEFT SHIFT is Present. Performed By: #### L 100.0500, L500.4050 #### [facility] [address] [place], [address] Lymphocytes/100 WBC (Bld) 16.6 % Low 19-41 [facility] Comment on above: Performed By: #### L 100.0500, L500.4050 #### [facility] [address] [place], [address] MCH (RBC) [Entitic mass] 30.4 pg Normal 27.0-32.0 [facility] Comment on above: Performed By: #### L 100.0500, L500.4050 #### [facility] [address] [place], [address] MCHC (RBC) [Mass/Vol] 33.3 g/dL Normal 32-36 [facility] Comment on above: Performed By: #### L 100.0500, L500.4050 #### [facility] [address] [place], [address] MCV (RBC) [Entitic vol] 91.5 fL Normal 80-94 [facility] Comment on above: Performed By: #### L 100.0500, L500.4050 #### [facility] [address] [place], [address] Monocytes/100 WBC (Bld) 6.4 % Normal 0-10 [facility] Comment on above: Performed By: #### L 100.0500, L500.4050 #### [facility] [address] [place], [address] Neutrophils/100 WBC (Bld) 71.8 % High 47-70 [facility] Comment on above: Performed By: #### L 100.0500, L500.4050 #### [facility] [address] [place], [address] Nucleated RBC (Bld) [#/Vol] 0.3 10*3/uL Normal 0-5 [facility] Comment on above: Performed By: #### L 100.0500, L500.4050 #### [facility] [address] [place], [address] Platelet mean volume (Bld) [Entitic vol] 10.0 fL Normal 6.2-12.0 [facility] Comment on above: Performed By: #### L 100.0500, L500.4050 #### [facility] [address] [place], [address] Platelets (Bld) [#/Vol] 387 10*3/uL Normal 150-450 [facility] Comment on above: Performed By: #### L 100.0500, L500.4050 #### [facility] [address] [place], [address] RBC (Bld) [#/Vol] 5.03 10*6/uL Normal 4.6-6.2 [facility] Comment on above: Performed By: #### L 100.0500, L500.4050 #### [facility] [address] [place], [address] RDW SD 43.7 fl Normal 35.1-43.9 [facility] Comment on above: Performed By: #### L 100.0500, L500.4050 #### [facility] [address] [place], [address] WBC (Bld) [#/Vol] 11.3 10*3/uL High 4.4-11.0 [facility] Comment on above: Performed By: #### L 100.0500, L500.4050 #### [facility] [address] [place], [address] Comprehensive Metabolic Prof ilon 06-27-2021 Albumin [Mass/Vol] 2.5 g/dL Low 3.2-5.[address] [facility] Comment on above: Performed By: #### L 100.0500, L500.4050 #### [facility] [address] [place], [address] Albumin/Globulin [Mass ratio] 0.6 {ratio} Low 0.9-2.4 [facility] Comment on above: Performed By: #### L 100.0500, L500.4050 #### [facility] [address] [place], [address] ALK P 53 U/L Normal 45-117 [facility] Comment on above: Performed By: #### L 100.0500, L500.4050 #### [facility] [address] [place], [address] ALT [Catalytic activity/Vol] 72 U/L High 16-61 [facility] Comment on above: Performed By: #### L 100.0500, L500.4050 #### [facility] [address] [place], [address] AST [Catalytic activity/Vol] 30 U/L Normal 15-37 [facility] Comment on above: Performed By: #### L 100.0500, L500.4050 #### [facility] [address] [place], [address] Bilirubin [Mass/Vol] 0.40 mg/dL Normal 0.20-1.00 [facility] Comment on above: Result Comment: For patients on eltrombopag therapy, use of Dimension [place] TBIL is not recommended. Performed By: #### L 100.0500, L500.4050 #### [facility] [address] [place], [address] BUN/CRE 20.6 RATIO High 10-20 [facility] Comment on above: Performed By: #### L 100.0500, L500.4050 #### [facility] [address] [place], [address] CA,Total 8.5 mg/dL Normal 8.5-10.1 [facility] Comment on above: Performed By: #### L 100.0500, L500.4050 #### [facility] [address] [place], [address] Chloride [Moles/Vol] 106 mmol/L Normal 98-107 [facility] Comment on above: Performed By: #### L 100.0500, L500.4050 #### [facility] [address] [place], [address] CO2 [Moles/Vol] 26.0 mmol/L Normal 21.0-32.0 [facility] Comment on above: Performed By: #### L 100.0500, L500.4050 #### [facility] [address] [place], [address] Creatinine [Mass/Vol] 0.68 mg/dL Low 0.70-1.30 [facility] Comment on above: Result Comment: The validity of the calculated GFR GFRAA in patients over 70 years has not been determined. Clinical correlation is essential. Performed By: #### L 100.0500, L500.4050 #### [facility] [address] [place], [address] ECRCL 149.10 ml/min Normal [facility] Comment on above: Performed By: #### L 100.0500, L500.4050 #### [facility] [address] [place], [address] EST GFR - AA 166 mL/min Normal >60 [facility] Comment on above: Result Comment: Afri can Citizen [place] GFR Calc Performed By: #### L 100.0500, L500.4050 #### [facility] [address] [place], [address] GAP 8 Normal 5-15 [facility] Comment on above: Performed By: #### L 100.0500, L500.4050 #### [facility] [address] [place], [address] GFR/1.73 sq M.predicted among non-blacks MDRD (S/P/Bld) [Vol rate/Area] 137 mL/min/{1.73_m2} Normal >60 [facility] Comment on above: Result Comment: Non- GFR Calc Performed By: #### L 100.0500, L500.4050 #### [facility] [address] [place], [address] Globulin (S) [Mass/Vol] 4.1 g/dL Normal 2.2-4.2 [facility] Comment on above: Performed By: #### L 100.0500, L500.4050 #### [facility] [address] [place], [address] Glucose [Mass/Vol] 130 mg/dL High 74-[address] [facility] Comment on above: Result Comment: Fast ing Glucose result greater than or equal to 126 mg/dL suggests DIABETES MELLITUS per A.D.A. criteria. Please note revised GLUCOSE reference range effective 2017. Performed By: #### L 100.0500, L500.4050 #### [facility] [address] [place], [address] Potassium [Moles/Vol] 4.2 mmol/L Normal 3.5-5.1 [facility] Comment on above: Performed By: #### L 100.0500, L500.4050 #### [facility] [address] [place], [address] Sodium [Moles/Vol] 140 mmol/L Normal 136-[address] [facility] Comment on above: Performed By: #### L 100.0500, L500.4050 #### [facility] [address] [place], [address] T PROT 6.6 g/dL Normal 6.4-8.2 [facility] Comment on above: Performed By: #### L 100.0500, L500.4050 #### [facility] [address] [place], [address] Urea nitrogen [Mass/Vol] 14 mg/dL Normal 7-18 [facility] Comment on above: Performed By: #### L 100.0500, L500.4050 #### [facility] [address] [place], [address] Comprehensive Metabolic Prof ilon 06-26-2021 Albumin [Mass/Vol] 2.7 g/dL Low 3.2-5.[address] [facility] Comment on above: Performed By: #### L 100.0500, L500.4050 #### [facility] [address] [place], [address] Albumin/Globulin [Mass ratio] 0.6 {ratio} Low 0.9-2.4 [facility] Comment on above: Performed By: #### L 100.0500, L500.4050 #### [facility] [address] [place], [address] ALK P 58 U/L Normal 45-117 [facility] Comment on above: Performed By: #### L 100.0500, L500.4050 #### [facility] [address] [place], [address] ALT [Catalytic activity/Vol] 75 U/L High 16-61 [facility] Comment on above: Performed By: #### L 100.0500, L500.4050 #### [facility] [address] [place], [address] AST [Catalytic activity/Vol] 39 U/L High 15-37 [facility] Comment on above: Performed By: #### L 100.0500, L500.4050 #### [facility] [address] [place], [address] Bilirubin [Mass/Vol] 0.40 mg/dL Normal 0.20-1.00 [facility] Comment on above: Result Comment: For patients on eltrombopag therapy, use of Dimension [place] TBIL is not recommended. Performed By: #### L 100.0500, L500.4050 #### [facility] [address] [place], [address] BUN/CRE 16.5 RATIO Normal 10-20 [facility] Comment on above: Performed By: #### L 100.0500, L500.4050 #### [facility] [address] [place], [address] CA,Total 8.9 mg/dL Normal 8.5-10.1 [facility] Comment on above: Performed By: #### L 100.0500, L500.4050 #### [facility] [address] [place], [address] Chloride [Moles/Vol] 104 mmol/L Normal 98-107 [facility] Comment on above: Performed By: #### L 100.0500, L500.4050 #### [facility] [address] [place], [address] CO2 [Moles/Vol] 31.0 mmol/L Normal 21.0-32.0 [facility] Comment on above: Performed By: #### L 100.0500, L500.4050 #### [facility] [address] [place], [address] Creatinine [Mass/Vol] 0.79 mg/dL Normal 0.70-1.30 [facility] Comment on above: Result Comment: The validity of the calculated GFR GFRAA in patients over 70 years has not been determined. Clinical correlation is essential. Performed By: #### L 100.0500, L500.4050 #### [facility] [address] [place], [address] ECRCL 128.34 ml/min Normal [facility] Comment on above: Performed By: #### L 100.0500, L500.4050 #### [facility] [address] [place], [address] EST GFR - AA 139 mL/min Normal >60 [facility] Comment on above: Result Comment: Afri can Citizen [place] GFR Calc Performed By: #### L 100.0500, L500.4050 #### [facility] [address] [place], [address] GAP 6 Normal 5-15 [facility] Comment on above: Performed By: #### L 100.0500, L500.4050 #### [facility] [address] [place], [address] GFR/1.73 sq M.predicted among non-blacks MDRD (S/P/Bld) [Vol rate/Area] 115 mL/min/{1.73_m2} Normal >60 [facility] Comment on above: Result Comment: Non- GFR Calc Performed By: #### L 100.0500, L500.4050 #### [facility] [address] [place], [address] Globulin (S) [Mass/Vol] 4.2 g/dL Normal 2.2-4.2 [facility] Comment on above: Performed By: #### L 100.0500, L500.4050 #### [facility] [address] [place], [address] Glucose [Mass/Vol] 137 mg/dL High 74-[address] [facility] Comment on above: Result Comment: Fast ing Glucose result greater than or equal to 126 mg/dL suggests DIABETES MELLITUS per A.D.A. criteria. Please note revised GLUCOSE reference range effective 2017. Performed By: #### L 100.0500, L500.4050 #### [facility] [address] [place], [address] Potassium [Moles/Vol] 4.1 mmol/L Normal 3.5-5.1 [facility] Comment on above: Performed By: #### L 100.0500, L500.4050 #### [facility] [address] [place], [address] Sodium [Moles/Vol] 141 mmol/L Normal 136-[address] [facility] Comment on above: Performed By: #### L 100.0500, L500.4050 #### [facility] [address] [place], [address] T PROT 6.9 g/dL Normal 6.4-8.2 [facility] Comment on above: Performed By: #### L 100.0500, L500.4050 #### [facility] [address] [place], [address] Urea nitrogen [Mass/Vol] 13 mg/dL Normal 7-18 [facility] Comment on above: Performed By: #### L 100.0500, L500.4050 #### [facility] [address] [place], [address] CBC W/Diff, Automatedon 10-1 Absolute Lymph 1.56 X10 3/uL Normal 0.83-4.51 [facility] Comment on above: Performed By: #### L 100.0100, L500.4050 #### [facility] [address] [place], [address] Absolute Neut 8.0 X10 3/uL High 2.0-7.7 [facility] Comment on above: Performed By: #### L 100.0100, L500.4050 #### [facility] [address] [place], [address] Basophils/100 WBC (Bld) 0.3 % Normal 0-1 [facility] Comment on above: Performed By: #### L 100.0100, L500.4050 #### [facility] [address] [place], [address] Eosinophils/100 WBC (Bld) 0.0 % Normal 0-5 [facility] Comment on above: Performed By: #### L 100.0100, L500.4050 #### [facility] [address] [place] [place], [address] Erythrocyte distribution width (RBC) [Ratio] 13.2 % Normal 11.6-14.6 [facility] Comment on above: Performed By: #### L 100.0100, L500.4050 #### [facility] [address] [place], [address] Hematocrit (Bld) [Volume fraction] 48.2 % Normal 40-54 [facility] Comment on above: Performed By: #### L 100.0100, L500.4050 #### [facility] [address] [place], [address] Hemoglobin (Bld) [Mass/Vol] 15.6 g/dL Normal 13.0-16.5 [facility] Comment on above: Performed By: #### L 100.0100, L500.4050 #### [facility] [address] [place], [address] IG% 2.100 High 0.0-0.9 [facility] Comment on above: Result Comment: IG% - Immature Granulocytes (promyelocytes, myelocytes and metamyelocytes) > 1% indicates that a LEFT SHIFT is Present. Performed By: #### L 100.0100, L500.4050 #### [facility] [address] [place], [address] Lymphocytes/100 WBC (Bld) 14.9 % Low 19-41 [facility] Comment on above: Performed By: #### L 100.0100, L500.4050 #### [facility] [address] [place], [address] MCH (RBC) [Entitic mass] 30.1 pg Normal 27.0-32.0 [facility] Comment on above: Performed By: #### L 100.0100, L500.4050 #### [facility] [address] [place], [address] MCHC (RBC) [Mass/Vol] 32.4 g/dL Normal 32-36 [facility] Comment on above: Performed By: #### L 100.0100, L500.4050 #### [facility] [address] [place], [address] MCV (RBC) [Entitic vol] 93.1 fL Normal 80-94 [facility] Comment on above: Performed By: #### L 100.0100, L500.4050 #### [facility] [address] [place], [address] Monocytes/100 WBC (Bld) 5.8 % Normal 0-10 [facility] Comment on above: Performed By: #### L 100.0100, L500.4050 #### [facility] [address] [place], [address] Neutrophils/100 WBC (Bld) 76.9 % High 47-70 [facility] Comment on above: Performed By: #### L 100.0100, L500.4050 #### [facility] [address] [place], [address] Nucleated RBC (Bld) [#/Vol] 0 10*3/uL Normal 0-5 [facility] Comment on above: Performed By: #### L 100.0100, L500.4050 #### [facility] [address] [place], [address] Platelet mean volume (Bld) [Entitic vol] 10.3 fL Normal 6.2-12.0 [facility] Comment on above: Performed By: #### L 100.0100, L500.4050 #### [facility] [address] [place], [address] Platelets (Bld) [#/Vol] 355 10*3/uL Normal 150-450 [facility] Comment on above: Performed By: #### L 100.0100, L500.4050 #### [facility] [address] [place], [address] RBC (Bld) [#/Vol] 5.18 10*6/uL Normal 4.6-6.2 [facility] Comment on above: Performed By: #### L 100.0100, L500.4050 #### [facility] [address] [place], [address] RDW SD 45.4 fl High 35.1-43.9 [facility] Comment on above: Performed By: #### L 100.0100, L500.4050 #### [facility] [address] [place], [address] WBC (Bld) [#/Vol] 10.5 10*3/uL Normal 4.4-11.0 [facility] Comment on above: Performed By: #### L 100.0100, L500.4050 #### [facility] [address] [place], [address] Comprehensive Metabolic Prof ilon 06-25-2021 Albumin [Mass/Vol] 2.9 g/dL Low 3.2-5.[address] [facility] Comment on above: Performed By: #### L 100.0100, L500.4050 #### [facility] [address] [place], [address] Albumin/Globulin [Mass ratio] 0.6 {ratio} Low 0.9-2.4 [facility] Comment on above: Performed By: #### L 100.0100, L500.4050 #### [facility] [address] [place], [address] ALK P 61 U/L Normal 45-117 [facility] Comment on above: Performed By: #### L 100.0100, L500.4050 #### [facility] [address] [place], [address] ALT [Catalytic activity/Vol] 84 U/L High 16-61 [facility] Comment on above: Performed By: #### L 100.0100, L500.4050 #### [facility] [address] [place], [address] AST [Catalytic activity/Vol] 53 U/L High 15-37 [facility] Comment on above: Performed By: #### L 100.0100, L500.4050 #### [facility] [address] [place], [address] Bilirubin [Mass/Vol] 0.40 mg/dL Normal 0.20-1.00 [facility] Comment on above: Result Comment: For patients on eltrombopag therapy, use of Dimension Raccoon TBIL is not recommended. Performed By: #### L 100.0100, L500.4050 #### [facility] [address] [place], [address] BUN/CRE 15.3 RATIO Normal 10-20 [facility] Comment on above: Performed By: #### L 100.0100, L500.4050 #### [facility] [address] [place], [address] CA,Total 8.7 mg/dL Normal 8.5-10.1 [facility] Comment on above: Performed By: #### L 100.0100, L500.4050 #### [facility] [address] [place], [address] Chloride [Moles/Vol] 104 mmol/L Normal 98-107 [facility] Comment on above: Performed By: #### L 100.0100, L500.4050 #### [facility] [address] [place], [address] CO2 [Moles/Vol] 29.0 mmol/L Normal 21.0-32.0 [facility] Comment on above: Performed By: #### L 100.0100, L500.4050 #### [facility] [address] [place], [address] Creatinine [Mass/Vol] 0.78 mg/dL Normal 0.70-1.30 [facility] Comment on above: Result Comment: The validity of the calculated GFR GFRAA in patients over 70 years has not been determined. Clinical correlation is essential. Performed By: #### L 100.0100, L500.4050 #### [facility] [address] [place], [address] ECRCL 129.99 ml/min Normal [facility] Comment on above: Performed By: #### L 100.0100, L500.4050 #### [facility] [address] [place], [address] EST GFR - AA 140 mL/min Normal >60 [facility] Comment on above: Result Comment: Afri can [place] GFR Calc Performed By: #### L 100.0100, L500.4050 #### [facility] [address] [place], [address] GAP 8 Normal 5-15 [facility] Comment on above: Performed By: #### L 100.0100, L500.4050 #### [facility] [address] [place], [address] GFR/1.73 sq M.predicted among non-blacks MDRD (S/P/Bld) [Vol rate/Area] 116 mL/min/{1.73_m2} Normal >60 [facility] Comment on above: Result Comment: Non- GFR Calc Performed By: #### L 100.0100, L500.4050 #### [facility] [address] [place], [address] Globulin (S) [Mass/Vol] 4.5 g/dL High 2.2-4.2 [facility] Comment on above: Performed By: #### L 100.0100, L500.4050 #### [facility] [address] [place], [address] Glucose [Mass/Vol] 127 mg/dL High 74-[address] [facility] Comment on above: Result Comment: Fast ing Glucose result greater than or equal to 126 mg/dL suggests DIABETES MELLITUS per A.D.A. criteria. Please note revised GLUCOSE reference range effective 2017. Performed By: #### L 100.0100, L500.4050 #### [facility] [address] [place], [address] Potassium [Moles/Vol] 3.9 mmol/L Normal 3.5-5.1 [facility] Comment on above: Performed By: #### L 100.0100, L500.4050 #### [facility] [address] [place], [address] Sodium [Moles/Vol] 141 mmol/L Normal 136-[address] [facility] Comment on above: Performed By: #### L 100.0100, L500.4050 #### [facility] [address] [place], [address] T PROT 7.4 g/dL Normal 6.4-8.2 [facility] Comment on above: Performed By: #### L 100.0100, L500.4050 #### [facility] [address] [place], [address] Urea nitrogen [Mass/Vol] 12 mg/dL Normal 7-18 [facility] Comment on above: Performed By: #### L 100.0100, L500.4050 #### [facility] [address] [place], [address] CBC-Complete Blood Cnt No Di ffon 06-24-2021 Erythrocyte distribution width (RBC) [Ratio] 13.4 % Normal 11.6-14.6 [facility] Comment on above: Performed By: #### L 100.0500, L500.4050 #### [facility] [address] [place], [address] Hematocrit (Bld) [Volume fraction] 45.2 % Normal 40-54 [facility] Comment on above: Performed By: #### L 100.0500, L500.4050 #### [facility] [address] [place], [address] Hemoglobin (Bld) [Mass/Vol] 15.3 g/dL Normal 13.0-16.5 [facility] Comment on above: Performed By: #### L 100.0500, L500.4050 #### [facility] [address] [place], [address] MCH (RBC) [Entitic mass] 30.8 pg Normal 27.0-32.0 [facility] Comment on above: Performed By: #### L 100.0500, L500.4050 #### [facility] [address] [place], [address] MCHC (RBC) [Mass/Vol] 33.8 g/dL Normal 32-36 [facility] Comment on above: Performed By: #### L 100.0500, L500.4050 #### [facility] [address] [place], [address] MCV (RBC) [Entitic vol] 91.1 fL Normal 80-94 [facility] Comment on above: Performed By: #### L 100.0500, L500.4050 #### [facility] [address] [place], [address] Platelet mean volume (Bld) [Entitic vol] 10.3 fL Normal 6.2-12.0 [facility] Comment on above: Performed By: #### L 100.0500, L500.4050 #### [facility] [address] [place], [address] Platelets (Bld) [#/Vol] 278 10*3/uL Normal 150-450 [facility] Comment on above: Performed By: #### L 100.0500, L500.4050 #### [facility] [address] [place], [address] RBC (Bld) [#/Vol] 4.96 10*6/uL Normal 4.6-6.2 [facility] Comment on above: Performed By: #### L 100.0500, L500.4050 #### [facility] [address] [place], [address] RDW SD 45.0 fl High 35.1-43.9 [facility] Comment on above: Performed By: #### L 100.0500, L500.4050 #### [facility] [address] [place], [address] WBC (Bld) [#/Vol] 8.9 10*3/uL Normal 4.4-11.[address] [facility] Comment on above: Performed By: #### L 100.0500, L500.4050 #### [facility] [address] [place], [address] Comprehensive Metabolic [facility] ilon 06-24-2021 Albumin [Mass/Vol] 3.0 g/dL Low 3.2-5.[address] [facility] Comment on above: Performed By: #### L 100.0500, L500.4050 #### [facility] [address] [place], [address] Albumin/Globulin [Mass ratio] 0.7 {ratio} Low 0.9-2.4 [facility] Comment on above: Performed By: #### L 100.0500, L500.4050 #### [facility] [address] [place], [address] ALK P 58 U/L Normal 45-117 [facility] Comment on above: Performed By: #### L 100.0500, L500.4050 #### [facility] [address] [place], [address] ALT [Catalytic activity/Vol] 84 U/L High 16-61 [facility] Comment on above: Performed By: #### L 100.0500, L500.4050 #### [facility] [address] [place], [address] AST [Catalytic activity/Vol] 67 U/L High 15-37 [facility] Comment on above: Performed By: #### L 100.0500, L500.4050 #### [facility] [address] [place], [address] Bilirubin [Mass/Vol] 0.40 mg/dL Normal 0.20-1.00 [facility] Comment on above: Result Comment: For patients on eltrombopag therapy, use of Dimension [place] TBIL is not recommended. Performed By: #### L 100.0500, L500.4050 #### [facility] [address] [place], [address] BUN/CRE 12.6 RATIO Normal 10-20 [facility] Comment on above: Performed By: #### L 100.0500, L500.4050 #### [facility] [address] [place], [address] CA,Total 8.5 mg/dL Normal 8.5-10.1 [facility] Comment on above: Performed By: #### L 100.0500, L500.4050 #### [facility] [address] [place], [address] Chloride [Moles/Vol] 107 mmol/L Normal 98-107 [facility] Comment on above: Performed By: #### L 100.0500, L500.4050 #### [facility] [address] [place], [address] CO2 [Moles/Vol] 27.0 mmol/L Normal 21.0-32.0 [facility] Comment on above: Performed By: #### L 100.0500, L500.4050 #### [facility] [address] [place], [address] Creatinine [Mass/Vol] 0.79 mg/dL Normal 0.70-1.30 [facility] Comment on above: Result Comment: The validity of the calculated GFR GFRAA in patients over 70 years has not been determined. Clinical correlation is essential. Performed By: #### L 100.0500, L500.4050 #### [facility] [address] [place], [address] ECRCL 128.34 ml/min Normal [facility] Comment on above: Performed By: #### L 100.0500, L500.4050 #### [facility] [address] [place], [address] EST GFR - AA 139 mL/min Normal >60 [facility] Comment on above: Result Comment: Afri can Citizen [place] GFR Calc Performed By: #### L 100.0500, L500.4050 #### [facility] [address] [place], [address] GAP 7 Normal 5-15 [facility] Comment on above: Performed By: #### L 100.0500, L500.4050 #### [facility] [address] [place], [address] GFR/1.73 sq M.predicted among non-blacks MDRD (S/P/Bld) [Vol rate/Area] 115 mL/min/{1.73_m2} Normal >60 [facility] Comment on above: Result Comment: Non- GFR Calc Performed By: #### L 100.0500, L500.4050 #### [facility] [address] [place], [address] Globulin (S) [Mass/Vol] 4.4 g/dL High 2.2-4.2 [facility] Comment on above: Performed By: #### L 100.0500, L500.4050 #### [facility] [address] [place], [address] Glucose [Mass/Vol] 138 mg/dL High 74-[address] [facility] Comment on above: Result Comment: Fast ing Glucose result greater than or equal to 126 mg/dL suggests DIABETES MELLITUS per A.D.A. criteria. Please note revised GLUCOSE reference range effective 2017. Performed By: #### L 100.0500, L500.4050 #### [facility] [address] [place], [address] Potassium [Moles/Vol] 4.0 mmol/L Normal 3.5-5.1 [facility] Comment on above: Performed By: #### L 100.0500, L500.4050 #### [facility] [address] [place], [address] Sodium [Moles/Vol] 141 mmol/L Normal 136-[address] [facility] Comment on above: Performed By: #### L 100.0500, L500.4050 #### [facility] [address] [place], [address] T PROT 7.4 g/dL Normal 6.4-8.2 [facility] Comment on above: Performed By: #### L 100.0500, L500.4050 #### [facility] [address] [place], [address] Urea nitrogen [Mass/Vol] 10 mg/dL Normal 7-18 [facility] Comment on above: Performed By: #### L 100.0500, L500.4050 #### [facility] [address] [place], [address] Basic Metabolic Profile (BMP )on 06-23-2021 BUN/CRE 8.4 RATIO Low 10-20 [facility] Comment on above: Performed By: #### L 100.0500, L500.4050 #### [facility] [address] [place], [address] CA,Total 8.3 mg/dL Low 8.5-10.1 [facility] Comment on above: Performed By: #### L 100.0500, L500.4050 #### [facility] [address] [place], [address] Chloride [Moles/Vol] 102 mmol/L Normal 98-107 [facility] Comment on above: Performed By: #### L 100.0500, L500.4050 #### [facility] [address] [place], [address] CO2 [Moles/Vol] 27.0 mmol/L Normal 21.0-32.0 [facility] Comment on above: Performed By: #### L 100.0500, L500.4050 #### [facility] [address] [place], [address] Creatinine [Mass/Vol] 0.95 mg/dL Normal 0.70-1.30 [facility] Comment on above: Result Comment: The validity of the calculated GFR GFRAA in patients over 70 years has not been determined. Clinical correlation is essential. Performed By: #### L 100.0500, L500.4050 #### [facility] [address] [place], [address] ECRCL 106.73 ml/min Normal [facility] Comment on above: Performed By: #### L 100.0500, L500.4050 #### [facility] [address] [place], [address] EST GFR - AA 112 mL/min Normal >60 [facility] Comment on above: Result Comment: Afri can [place] GFR Calc Performed By: #### L 100.0500, L500.4050 #### [facility] [address] [place], [address] GAP 6 Normal 5-15 [facility] Comment on above: Performed By: #### L 100.0500, L500.4050 #### [facility] [address] [place], [address] GFR/1.73 sq M.predicted among non-blacks MDRD (S/P/Bld) [Vol rate/Area] 93 mL/min/{1.73_m2} Normal >60 [facility] Comment on above: Result Comment: Non- GFR Calc Performed By: #### L 100.0500, L500.4050 #### [facility] [address] [place], [address] Glucose [Mass/Vol] 158 mg/dL High 74-[address] [facility] Comment on above: Result Comment: Fast ing Glucose result greater than or equal to 126 mg/dL suggests DIABETES MELLITUS per A.D.A. criteria. Please note revised GLUCOSE reference range effective 2017. Performed By: #### L 100.0500, L500.4050 #### [facility] [address] [place], [address] Potassium [Moles/Vol] 3.3 mmol/L Low 3.5-5.1 [facility] Comment on above: Performed By: #### L 100.0500, L500.4050 #### [facility] [address] [place], [address] Sodium [Moles/Vol] 135 mmol/L Low 136-[address] [facility] Comment on above: Performed By: #### L 100.0500, L500.4050 #### [facility] [address] [place], [address] Urea nitrogen [Mass/Vol] 8 mg/dL Normal 7-18 [facility] Comment on above: Performed By: #### L 100.0500, L500.4050 #### [facility] [address] [place], [address] CBC W/Diff, Automatedon 10-1 Absolute Lymph 0.85 X10 3/uL Normal 0.83-4.51 [facility] Comment on above: Performed By: #### L 100.0500, L500.4050 #### [facility] [address] [place], [address] Absolute Neut 6.6 X10 3/uL Normal 2.0-7.7 [facility] Comment on above: Performed By: #### L 100.0500, L500.4050 #### [facility] [address] [place], [address] Basophils/100 WBC (Bld) 0.1 % Normal 0-1 [facility] Comment on above: Performed By: #### L 100.0500, L500.4050 #### [facility] Laboratory [address] [place], [address] Eosinophils/100 WBC (Bld) 0.0 % Normal 0-5 [facility] Comment on above: Performed By: #### L 100.0500, L500.4050 #### [facility] [address] [place], [address] Erythrocyte distribution width (RBC) [Ratio] 13.2 % Normal 11.6-14.6 [facility] Comment on above: Performed By: #### L 100.0500, L500.4050 #### [facility] [address] [place], [address] Hematocrit (Bld) [Volume fraction] 44.0 % Normal 40-54 [facility] Comment on above: Performed By: #### L 100.0500, L500.4050 #### [facility] [address] [place], [address] Hemoglobin (Bld) [Mass/Vol] 15.1 g/dL Normal 13.0-16.5 [facility] Comment on above: Performed By: #### L 100.0500, L500.4050 #### [facility] [address] [place], [address] IG% 0.600 Normal 0.0-0.9 [facility] Comment on above: Result Comment: IG% - Immature Granulocytes (promyelocytes, myelocytes and metamyelocytes) > 1% indicates that a LEFT SHIFT is Present. Performed By: #### L 100.0500, L500.4050 #### [facility] [address] [place], [address] Lymphocytes/100 WBC (Bld) 10.9 % Low 19-41 [facility] Comment on above: Performed By: #### L 100.0500, L500.4050 #### [facility] [address] [place], [address] MCH (RBC) [Entitic mass] 30.3 pg Normal 27.0-32.0 [facility] Comment on above: Performed By: #### L 100.0500, L500.4050 #### [facility] [address] [place], [address] MCHC (RBC) [Mass/Vol] 34.3 g/dL Normal 32-36 [facility] Comment on above: Performed By: #### L 100.0500, [id number] #### [facility] [address] [place], [address] MCV (RBC) [Entitic vol] 88.2 fL Normal 80-94 [facility] Comment on above: Performed By: #### L 100.0500, L500.4050 #### [facility] [address] [place], [address] Monocytes/100 WBC (Bld) 4.1 % Normal 0-10 [facility] Comment on above: Performed By: #### L 100.0500, L500.4050 #### [facility] [address] [place], [address] Neutrophils/100 WBC (Bld) 84.3 % High 47-70 [facility] Comment on above: Performed By: #### L 100.0500, L500.4050 #### [facility] [address] [place], [address] Nucleated RBC (Bld) [#/Vol] 0 10*3/uL Normal 0-5 [facility] Comment on above: Performed By: #### L 100.0500, L500.4050 #### [facility] [address] [place], [address] Platelet mean volume (Bld) [Entitic vol] 9.7 fL Normal 6.2-12.0 [facility] Comment on above: Performed By: #### L 100.0500, L500.4050 #### [facility] [address] [place], [address] Platelets (Bld) [#/Vol] 216 10*3/uL Normal 150-450 [facility] Comment on above: Performed By: #### L 100.0500, L500.4050 #### [facility] [address] [place], [address] RBC (Bld) [#/Vol] 4.99 10*6/uL Normal 4.6-6.2 [facility] Comment on above: Performed By: #### L 100.0500, L500.4050 #### [facility] [address] [place], [address] RDW SD 43.2 fl Normal 35.1-43.9 [facility] Comment on above: Performed By: #### L 100.0500, L500.4050 #### [facility] [address] [place], [address] WBC (Bld) [#/Vol] 7.8 10*3/uL Normal 4.4-11.[address] [facility] Comment on above: Performed By: #### L 100.0500, L500.4050 #### [facility] [address] [place], [address] Chest 1 View (Portable)on Chest 1 View (Portable) [facility] Imaging Services [address] [place] [address] Chest 1 View (Portable) MR#: [id number] Acct: [id number] Name: MAHESH WEBER Rep #: [id number] : 1980 M 40 From: Zachary sapp MD PCP: Dr. Reinier Mclean MD Status: [facility] ER Study: Chest 1 View (Portable) Date of Exam: 06/23/21 Exam# [id number] Ordering Dr: Silverio Chery MD STUDY: X-RAY CHEST REASON FOR EXAM: Male, 40 years old. Dyspnea TECHNIQUE: Single AP portable view of the chest. COMPARISON: None. FINDINGS: EKG electrodes are seen. There is elevation of the right hemidiaphragm. Patchy bilateral pulmonary infiltrates. There is no demonstrated pleural abnormality. Normal size heart. Normal mediastinum and jose manuel. Normal visualized pulmonary arteries. Normal visualized aortic arch and descending thoracic aorta. Normal visualized thoracic spine. Normal visualized ribs, clavicles, and shoulders. There is no demonstrated abnormality of the visualized soft tissue structures of the upper abdomen. RAD/Chest 1 View (Portable) IMPRESSION: Patchy bilateral pulmonary infiltrates. Electronically Signed: Zachary Davison MD at 11:47 EDT , Service support , CC: Dr. Silverio Chery MD; Dr. Reinier Mclean MD Pharmacy Informaticist: Signed Normal [facility] Emergency Department Summary on 06-23-2021 Emergency Department Summary [facility] Medical Records Department [address] [place] [id number] Emergency Department Summary 06/23/21 MR#: [id number] Acct: [id number] Name: MAHESH WEBER Rep #: [id number] : 1980 40 From: Silverio Chery MD PCP: Dr. Reinier Mclean MD Status:[facility] ER Location: ED HPI History of Present Illness Chief Complaint: Shortness of Breath Informant: patient Onset/Context/Timing Onset: Days Context: gradual Timing: Continuous Current Severity: Mild Maximum Severity: Mild Associated Symptoms cough Chest Pain: Positive for None Narrative Narrative: 40-year-old male unvaccinated for Covid. States has had Covid symptoms since Sunday so is now 6 days in. She has had flulike symptoms. He states he had nausea, vomiting and diarrhea. He has had fevers. He has had a dry nonproductive cough. Also states his 2-1/2-year-old daughters ill at home but she is doing quite well. He has no other past medical history. Says he feels dehydrated. PE Risk Factors: Negative for Cancer, OCP + Smoking + > 35, Prior DVT or PE, Recent immobilization, Recent surgery and Recent travel Prior similar symptoms: No Recent Illness/Hospitalizat ion: No PFSH PFSH Medical History no medical history no medical history Home Medications dexamethasone [Decadron] 6 mg PO DAILY 7 Days #7 tab 06/23/21 [Rx Last Taken Unknown] ondansetron 4 mg PO Q8H PRN 4 Days tab 06/23/21 [Rx Last Taken Unknown] Allergy/AdvReac Type Severity Reaction Status Date / Time No Known Allergies Allergy Verified 04/28/20 17:43 Surgical History no surgical history Social History Smoking Status: Never smoker ROS ROS ED ROS Narrative Fever, cough, shortness of breath, nausea, vomiting and diarrhea. Review of Systems ROS Unobtainable: Denies due to encephalopathy Constitutional Constitutional ED: Reports fever(s) Eyes Eyes: Denies change in vision ENT ENT ED: Denies ear pain or sore throat Cardiovascular Cardiovascular: Denies chest pain Respiratory/Chest Respiratory/Chest: Reports cough and dyspnea Gastrointestinal Gastrointestinal: Reports diarrhea, nausea and vomiting; Denies abdominal pain Genitourinary Genitourinary ED: Denies dysuria Musculoskeletal Musculoskeletal: Reports myalgias Integumentary Denies rash Neurologic Neurologic: Denies headache(s) Psychiatric Psychiatric: Denies depression Endocrine Endocrinology: Denies polyuria Hematologic/Lymphati c Hematologic/Lymphati c: Denies easy bruising Allergic/Immunologic Allergic/Immunologic ED: Denies urticaria EXAM Physical Exam Narrative Exam Narrative: 40-year-old male no acute distress is febrile one 1.6. He does not look septic. He looks mildly dehydrated. HEENT exam mucous membranes. Otherwise unremarkable. Neck nontender no meningismus. No lymphadenopathy. Lungs clear to auscultation bilaterally. Heart tachycardic rate about 110 no murmur. Abdomen soft nontender normal bowel sounds no peritoneal signs. Moving all 4 extremities. No edema. Calves nontender. Back nontender. Skin unremarkable no rashes. No petechiae purpura. Neurologically is awake and alert. Const Vital Signs: 06/23/21 10:20 06/23/21 10:32 06/23/21 10:36 Temperature 101.6 F H 101.6 F H Temperature Source Oral Temporal Pulse Rate 121 H 105 H 102 H Respiratory Rate 24 H 22 H 24 H Respiratory Effort Non-Labored Respiratory Depth Normal Respiratory Pattern Tachypnea Blood Pressure 122/83 H 134/70 H 134/70 H Blood Pressure Mean 96 91 91 Pulse Ox 85 91 92 Oxygen Delivery Method Room Air Nasal Cannula Room Air Oxygen Flow Rate (L/min) 3 4 06/23/21 11:07 06/23/21 11:24 06/23/21 12:08 Temperature 97.0 F L Temperature Source Temporal Pulse Rate 100 Respiratory Rate 27 H Respiratory Effort Respiratory Depth Respiratory Pattern Blood Pressure 123/81 H Blood Pressure Mean 95 Pulse Ox 96 95 86 Oxygen Delivery Method Nasal Cannula Room Air Oxygen Flow Rate (L/min) 4 4 Positive well nourished, well developed and obese; Negative for cachectic, contractures or unkempt General Appearance ED: well developed and NAD; Negative for unkempt, cachectic, contractures or pallor Nutritional Appearance: obese; Negative for cachectic HEENT Reports dry mucous membranes atraumatic; Negative for trauma or tenderness Mouth ED: Yes dry mucous membranes Mouth: dry mucous membranes Eyes PERRL and EOMs intact bilaterally Neck no lymphadenopathy, supple, no meningeal signs and no JVD General: Negative for tenderness Resp normal respiratory effort and clear to auscultation bilaterally Auscultation: Negative for rales, rhonchi or wheezes Cardio regular rhythm, S1 normal heart sound, S2 normal heart sound (more content not included)... Normal [facility] Liver Profileon 06-23-2021 Albumin [Mass/Vol] 3.2 g/dL Normal 3.2-5.[address] [facility] Comment on above: Performed By: #### L 500.3400 #### [facility] [address] [place], [place], [id number] ALK P 61 U/L Normal 45-117 [facility] Comment on above: Performed By: #### L 500.3400 #### [facility] [address] [place], [address] ALT [Catalytic activity/Vol] 91 U/L High 16-61 [facility] Comment on above: Performed By: #### L 500.3400 #### [facility] [address] [place], [address] AST [Catalytic activity/Vol] 89 U/L High 15-37 [facility] Comment on above: Performed By: #### L 500.3400 #### [facility] [address] [place], [address] Bilirubin [Mass/Vol] 0.50 mg/dL Normal 0.20-1.00 [facility] Comment on above: Result Comment: For patients on eltrombopag therapy, use of Dimension Raccoon TBIL is not recommended. Performed By: #### L 500.3400 #### [facility] [address] [place], [address] Bilirubin.direct [Mass/Vol] 0.23 mg/dL Normal 0.00-0.30 [facility] Comment on above: Performed By: #### L 500.3400 #### [facility] [address] [place], [address] Globulin (S) [Mass/Vol] 4.4 g/dL High 2.2-4.2 [facility] Comment on above: Performed By: #### L 500.3400 #### [facility] [address] [place], [address] T PROT 7.6 g/dL Normal 6.4-8.2 [facility] Comment on above: Performed By: #### L 500.3400 #### [facility] [address] [place], [address] Discharge summary note 06-29-2021 Note Date & Type Note Facility 06-29-2021 Note [facility] Medical Records Department [address] [place] [address] Discharge Summary 06/29/21 1336 MR#: [id number] Acct: [id number] Name: MAHESH WEBER Rep #: [id number] : 1980 40 From: Sharyn Lott DO PCP: Dr. Reinier Mclean MD Status:ADM IN Location: [facility] [place] [id number] Providers Date of Admission: 06/23/21 Primary Care Physician: Dr. Reinier Mclean MD Consultations 06/27/21 16:32 Consult: Infectious Disease Routine Consulting Provider: Ritchie London Reason for Consult: ? Baricitinib EMERGENT Consult: No MD Notified: Yes Date Notified: 06/27/21 Time Notified: 16:32 Method of Notification: Text Reason For Visit: COVID HYPOXIA VOMITING Diagnosis Discharge Diagnosis (1) Acute respiratory failure with hypoxia: Status: Acute Code(s): J96.01 - Acute respiratory failure with hypoxia (2) COVID-19: Status: Acute Code(s): U07.1 - COVID-19 Medications at Discharge Home Medications dexamethasone [Decadron] 6 mg PO DAILY 7 Days #7 tab 06/23/21 ondansetron 4 mg PO Q8H PRN 4 Days tab 06/23/21 dexamethasone [Decadron] 6 mg PO DAILY #5 tab 06/29/21 Hospital Course Operations None Procedures None Summary of Care Provided Minutes Spent on Discharge: 35 Hospital Course: Mr Weber is a 40-year-old white male who presented to the emergency department [facility] on 06/23/2021 with a chief complaint of shortness of breath and hypoxia. He had began having symptoms on 06/18/2021 of Covid and was tested positive on 06/20/2021. He purchased a home pulse oximetry monitor which showed desaturations on the day of presentation. With initiation of his symptoms, he had nausea, vomiting, diarrhea, as well as fevers. In the emergency department he was requiring 4 L nasal cannula to maintain oxygen saturation greater than 90%. He was given Decadron, IV fluids, and Zofran in the emergency department admitted to the hospital for continued care. He was admitted to the medical floor and placed on Decadron and remdesivir. During his hospitalization, he required as much supplemental oxygen is 15 L of heated high flow nasal cannula but we were able to slowly decrease his oxygenation through the course of his stay. On the day of discharge and ambulatory pulse oximetry was obtained and he was noted to need 2 L with ambulation. He was initially on no oxygen at rest but his oxygenation status did decline to the point where he was 88% on room air and therefore was placed on 2 L at rest as well. He is to continue his course of Decadron to complete a total of 10 days. He completed remdesivir. He was instructed to quarantine until 07/09/2021 and thereafter was informed that he is able to be vaccinated if he so desires. He has a pulse oximetry at home and states he will continue to monitor his pulse oximetry and represent to the hospital if he becomes type more hypoxic. He was discharged in stable condition. He is to follow-up with his PCP in 2 weeks after he is completed quarantine and with pulmonology in 4 to 6 weeks. Discharge diagnoses: Acute hypoxic respiratory failure COVID-19 pneumonia Transaminitis Morbid obesity Physical Exam Const alert, oriented x3, no apparent distress and healthy appearing Constitutional Narrative: Morbidly obese white male sitting up on the edge of the bed, appears comfortable, talking on the phone, nontoxic General Appearance: cooperative, comfortable, well kempt and well developed Orientation / Consciousness: awake Exam Limitations: no limitations HEENT normocephalic, head/scalp atraumatic, hearing grossly normal bilaterally and moist oral mucous membranes HEENT Narrative: No thrush Eyes PERRL, EOMs intact bilaterally, conjunctivae normal and no scleral icterus Neck full ROM, no lymphadenopathy, supple and no JVD Neck Narrative: Trachea midline General: trachea midline Resp normal respiratory effort, normal air movement, no retractions, no use of accessory muscles and cl ear to auscultation bilaterally Resp Narrative: Diminished diffusely but clear Effort and Inspection: tachypneic Auscultation: Negative for crackles, rales, rhonchi or wheezes Cardio regular rate, regular rhythm, S1 normal heart sound, S2 normal heart sound, no murmurs, no rub, no gallops, no clicks, no JVD and peripheral pulses 2+ throughout GI normal to inspection, nondistended, normoactive bowel sounds, soft to palpation, non-tender and non- distended; Negative for hepatosplenomegaly Extremity normal to inspection, full ROM, normal capillary refill and no clubbing, cyanosis or edema General Extremity: no tenderness to palpation of joints or extremities Skin no rashes or lesions noted, no wounds, skin turgor normal, no jaundice, no petechiae and no mottling General Skin Exam: no breakdown and turgor normal Lesions: no lesions Rashes: no chaz (more content not included)... [facility] Clinical Note 06-23-2021 Note Date & Type Note Facility 06-23-2021 Note [facility] Medical Records Department [address] [place] [address] History Physical Exam 06/23/21 1338 MR#: [id number] Acct: [id number] Name: MAHESH WEBER Rep #: [id number] : 1980 40 From: Cathy TARIQ PCP: Dr. Reinier Mclean MD Status:ADM [id number] Documented by User: MARCIANO Duncan 06/23/21 13:54 HPI - General General Date of Admission: 06/23/21 Date of Service: 06/23/21 Chief Complaint: Decreased pulse ox HPI Narrative MAHESH WEBER, is a 40 M who presents with reports of decreased pulse ox at home. Patient was diagnosed on Sunday as having COVID-19 however patient states that his symptoms started on Sunday which puts him 1 day 6 of symptoms. Patient reports nausea, vomiting, diarrhea along with fevers. Patient received IV Decadron and IV Zofran along with IV fluids in the ER. Upon presentation to ER patient was noted to have pulse ox in the mid 80s and is requiring 4 L nasal cannula oxygen. PFSH Medical History no medical history no medical history Home Medications dexamethasone [Decadron] 6 mg PO DAILY 7 Days #7 tab 06/23/21 [Rx Last Taken Unknown] ondansetron 4 mg PO Q8H PRN 4 Days tab 06/23/21 [Rx Last Taken Unknown] Allergy/AdvReac Type Severity Reaction Status Date / Time No Known Allergies Allergy Verified 04/28/20 17:43 Family History (Updated 06/23/21 @ 13:41 by MARCIANO Duncan) Father Myocardial infarction Surgical History History of tonsillectomy Surgical History no surgical history Social History (Updated 06/23/21 @ 13:41 by MARCIANO Duncan) Smoking Status: Never smoker alcohol intake: never substance use type: does not use ROS Constitutional Constitutional: Reports fever(s) and malaise; Denies anorexia or chills Cardiovascular Cardiovascular: Denies chest pain, edema or palpitations Respiratory/Chest Respiratory/Chest: Reports cough and shortness of breath with exertion Gastrointestinal Gastrointestinal: Reports diarrhea, nausea and vomiting; Denies abdominal pain or constipation Genitourinary Genitourinary: Denies dysuria Musculoskeletal Musculoskeletal: Denies back pain, extremity pain, joint pain or joint stiffness Integumentary Integumentary: Denies dry skin, lesions or rash Neurologic Neurologic: Denies abnormal gait, abnormal speech, confusion, dizziness or focal weakness Psychiatric Psychiatric: Denies anxiety or depression Endocrine Endocrinology: Denies change in body appearance Hematologic/Lymphatic Hematologic/Lymphatic: Denies anemia, easy bleeding or easy bruising Vital Signs Vital Signs Vital Signs: 06/23/21 10:20 06/23/21 10:32 06/23/21 10:36 Temperature 101.6 F H 101.6 F H Temperature Source Oral Temporal Pulse Rate 121 H 105 H 102 H Respiratory Rate 24 H 22 H 24 H Respiratory Effort Non-Labored Respiratory Depth Normal Respiratory Pattern Tachypnea Blood Pressure 122/83 H 134/70 H 134/70 H Blood Pressure Mean 96 91 91 Pulse Ox 85 91 92 Oxygen Delivery Method Room Air Nasal Cannula Room Air Oxygen Flow Rate (L/min) 3 4 06/23/21 11:07 06/23/21 11:24 06/23/21 12:08 Temperature 97.0 F L Temperature Source Temporal Pulse Rate 100 Respiratory Rate 27 H Respiratory Effort Respiratory Depth Respiratory Pattern Blood Pressure 123/81 H Blood Pressure Mean 95 Pulse Ox 96 95 86 Oxygen Delivery Method Nasal Cannula Room Air Oxygen Flow Rate (L/min) 4 4 06/23/21 12:23 Temperature 97.3 F L Temperature Source Temporal Pulse Rate 98 Respiratory Rate 23 H Respiratory Effort Respiratory Depth Respiratory Pattern Blood Pressure 134/78 H Blood Pressure Mean 96 Pulse Ox 93 Oxygen Delivery Method Nasal Cannula Oxygen Flow Rate (L/min) 4 Weight Weight: 307 lb Body Mass Index (BMI) 44.0 Physical Exam Const alert, oriented x3 and no apparent distress General Appearance: cooperative HEENT normocephalic and head/scalp atraumatic Eyes conjunctivae normal and no scleral icterus Neck supple General: trachea midline Resp normal respiratory effort, normal air movement and clear to auscultation bilaterally Effort and Inspection: tachypneic Cardio regular rate, regular rhythm, S1 normal heart sound, S2 normal heart sound and peripheral pulses 2+ throughout GI normal to inspection, nondistended, normoactive bowel sounds, soft to palpation and non-tender Extremity normal capillary refill and no clubbing, cyanosis or edema General Extremity: no tenderness to palpation of joints or extremities Skin General Skin Exam: no breakdown and turgor normal Lesions: no lesions Rashes: no rashes Neuro no focal motor d (more content not included)... [facility] Summary Purpose Family History No Family History Records FoundNo Family History Records FoundNo Family History Records Found Advance Directives No Advanced Directives Records FoundNo Advanced Directives Records FoundNo Advanced Directives Records Found Additional Source Comments (unrecognized sect ion and content) No Status Records FoundNo Status Records FoundNo Status Records Found INFORMATION SOURCE (unrecogn ized section and content) DATE CREATED AUTHOR 10/24/2021 [facility] DATE CREATED AUTHOR AUTHOR'S ORGANIZ ATION 11/19/2021 [facility] DATE CREATED AUTHOR AUTHOR'S ORGANIZ ATION 03/07/2025 [facility] s FOR RECORDS PERTAINING TO PATIENTS WHO ARE OR HAVE BEEN ENROLLED IN A CHEMICAL DEPENDENCY/SUBSTANCEABUSE PROGRAM, SOME INFORMATION MAY BE OMITTED. This clinical summary was aggregated from multiple sources. Caution should be exercised in using it in the provision of clinical care. This summary normalizes information from multiple sources, and as a consequence, information in this document may materially change the coding, format and clinical context of patient data. In addition, data may be omitted in some cases. CLINICAL DECISIONS SHOULD BE BASED ON THE PRIMARY CLINICAL RECORDS. [facility] [employer] [facility]. provides no warranty or guarantee of the accuracy or completeness of information in this document.
[2025-07-20 07:23] LABS: D-Dimer Quantitative (DVT/PE) 0.27 FEU/ug/m (0.27-0.49)
--- NOTE | 2025-07-20 07:25 | CT_ITS ---
PROCEDURE: CTA CHST, ABD, PEL W AND/OR WO 07/20/2025 REASON FOR EXAM: CHEST AND BACK PAIN TECHNIQUE: Procedure Code: CTCTA.CHAP.2 Modality: CT Procedure: CTA CHST, ABD, PEL W AND/OR WO Coronal and Sagittal reconstruction series were provided. One or more dose reduction techniques were used (e.g., Automated exposure control, adjustment of the mA and/or kV according to patient size, use of iterative reconstruction technique. CONTRAST: 100 cc Isovue-300 RADIATION DOSE SUMMARY: DLP: 1615 mGycm COMPARISON: April 28, 2020 FINDINGS: CHEST: Lines and tubes: None Mediastinum: Within normal limits Heart: Within normal limits. There is no significant atherosclerosis Thoracic Aorta: Within normal limits Lungs and Airways: Clear Pleura: There is no pneumothorax or effusion Bones: There is no acute bony abnormality ABDOMEN AND PELVIS: Liver: Unremarkable Gallbladder: Unremarkable Spleen: Unremarkable Pancreas: Unremarkable Adrenals: Unremarkable Kidneys: Unremarkable Bladder: Unremarkable Reproductive Organs: Unremarkable Bowel: Gas and stool is noted in the colon. Small bowel loops are not distended. The appendix is within normal limits. Vasculature: Intact. There is no significant atherosclerosis. Peritoneum / Retroperitoneum: There is a 1.9 x 2.8 cm uncomplicated fat containing umbilical hernia. Bones: There is a moderate joint effusion. There is fluid in the subacromial subdeltoid bursa, with bursitis. CT/CTA Chst, Abd, Pel W and/or WO IMPRESSION: There is a moderate joint effusion. There is fluid in the subacromial subdeltoi d bursa, with bursitis. MRI with and without contrast, or bone scan could be helpful for further characterization. There is a 1.9 x 2.8 cm uncomplicated fat containing umbilical hernia. Reading Location: [facility]
[2025-07-20 07:34] LABS: Troponin T High Sensitivity 9 ng/L (<=22)
[2025-07-20 07:39] LABS: AST(SGOT) 28 U/L (<=37); Alanine Aminotransfer ALT/SGPT 39 U/L (<=46); Albumin, Serum 4.4 g/dL (3.5-5.0); Alkaline Phosphatase 65 U/L (40-129); Anion Gap 14 (5-15); BUN 12 mg/dL (4-19); BUN/Creat Ratio 14.4 RATIO (10-20); Bilirubin, Direct < 0.08 mg/dL (0.00-0.30); Calcium,Total 9.2 mg/dL (7.6-11.0); Carbon Dioxide 19.6 mmol/L (21.0-32.0); Chloride 104 mmol/L (98-108); Estimated Creatinine Clearance 165.77 ml/min (50-250); Globulin 2.4 g/dL (2.2-4.2); Glucose 131 mg/dL (70-99); Lipase 35 U/L (13-75); Magnesium 2.1 mg/dL (1.5-2.2); Potassium 4.5 mmol/L (3.3-5.1)
[2025-07-20 09:04] LABS: Troponin T High Sens 2 HR 8 ng/L (<=22)
== END 2025-07-20 09:19 | disposition home or self-care (01) ==
PROVIDERS: Emergency Provider Emergency Medicine; PCP Family Medicine; Visit Provider Emergency Medicine
DX: R07.9 Chest pain, unspecified (principal); E66.9 Obesity, unspecified; Z79.899 Other long term (current) drug therapy; Z86.16 Personal history of COVID-19
CPT/HCPCS: 71046; 71275; 74174; 80048; 80076; 83690; 83735; 84484; 85025; 85379; 93005; 96374; 96375; 96376; 99283; Q9967; A4216; J2405